=== PATIENT | male | born 1955 | race Caucasian/White ===

== ENCOUNTER 2017-09-06 12:46 | Emergency (ER) | payer BC ==
[~2017-09-06] VITALS: Ht 167.6 cm; Wt 86.1 kg
[~2017-09-06 12:46] MED LIST changes: -GADAVIST IV PRN; -LEVO150T9 PO; -TRMCR130WC TOP
[2017-09-06 12:50] VITALS: TEMP 36.3; Ht 167.6 cm; Wt 86.1 kg
[2017-09-06 13:12] LABS: BASO % 0.6 %; BASO ABS # 0.03 K/uL (0-0.2); EOS % 2.3 %; EOS ABS # 0.11 K/uL (0-0.5); HEMATOCRIT 45.7 % (42-52); HEMOGLOBIN 15.9 g/dL (14.0-18.0); IG# 0.02 K/uL (0.00-0.02); LYMPH % 16.4 %; LYMPH ABS # 0.79 K/uL (1.2-3.4); MEAN CELL VOLUME 88.1 fL (80-100); MEAN CORPUSCULAR HEMOGLOBIN 30.6 pg (25-34); MEAN CORPUSCULAR HGB CONC 34.8 g/dl (32-36); MEAN PLATELET VOLUME 9.6 fL (7.4-10.4); MONO % 10.6 %; MONO ABS # 0.51 K/uL (0.11-0.59); NEUT % 69.7 %; NEUT ABS # 3.37 K/uL (1.4-6.5); PLATELET COUNT 178 K/uL (130-400); RED CELL DISTRIBUTION WIDTH CV 13.4 % (11.5-14.5); RED CELL DISTRIBUTION WIDTH SD 43.4 fL (36.4-46.3); WHITE BLOOD COUNT 4.83 K/uL (4.8-10.8)
[2017-09-06 13:18] LABS: PTT PATIENT 27.1 SECONDS (21.0-31.0)
--- NOTE | 2017-09-06 13:24 | EMERGENCY ROOM VISIT NOTE ---
History Report prepared by Manfred: Lars Villanueva Under the Supervision of: Dr. Trenton Joseph D.O. First contact with patient: 12:55 Chief Complaint: HEADACHE Stated Complaint: SENT FROM MRI History of Present Illness The patient is a 61 year old male who presents to the Emergency Room with complaints of a constant left sided headache that began 2 weeks ago. He rates his discomfort as a 3/10 in severity. Per nursing, the patient has been forgetful and has been dizzy and "wobbling" in the last two weeks. The patient states that he went to his physician where he had an outpatient MRI. HE reports that he was told the MRI was abnormal, but was not told any details. He was sent to the ED via his physician. He denies blood thinners, recent falling or trauma, alcohol, drug, tobacco use, and recent travel. He reports a history of thyroid problems and colitis. Source of History: patient Onset: two weeks ago Position: head (left side) Symptom Intensity: 3/10 Timing: constant Note: Associated symptoms include: dizziness and forgetfulness Review of Systems See HPI for pertinent positives & negatives. A total of 10 systems reviewed and were otherwise negative. Past Medical & Surgical Medical Problems: (1) Colitis (2) Thyroid condition Family History Cancer Diabetes mellitus Kidney disease Kidney stones Social History Smoking Status: Never Smoker Smokeless Tobacco Use: No Alcohol Use: none Drug Use: none Marital Status: Housing Status: lives with family Current/Historical Medications Scheduled Levothyroxine Sodium (Levothyroxine Sodium), 150 MCG PO QAM Mesalamine (Lialda), 2 TABS PO DAILY Triamcinolone Acet (Aristocort 0.1%), 1 APPLN TOP BID Allergies Coded Allergies: No Known Allergies (Unverified , 09/06/17) Physical Exam Vital Signs Date Time Temp Pulse Resp B/P (MAP) Pulse Ox O2 Delivery O2 Flow Rate FiO2 09/06/17 17:39 62 18 119/63 96 Room Air 09/06/17 16:29 68 18 125/81 97 Room Air 09/06/17 15:20 57 16 112/82 95 Room Air 09/06/17 14:36 58 17 119/83 95 Room Air 09/06/17 13:51 61 22 126/82 98 Room Air 09/06/17 12:58 62 2/8/18 12:50 36.3 64 18 144/85 98 Room Air Physical Exam GENERAL: Patient is awake, alert, and in no acute distress. Patient is resting comfortably and is mildly anxious. EYES: The conjunctivae are clear. The pupils are round and reactive. EARS, NOSE, MOUTH AND THROAT: The nose is without any evidence of any deformity. Mucous membranes are moist tongue is midline NECK: The neck is nontender and supple. RESPIRATORY: Normal respiratory effort is noted there is no evidence of wheezing rhonchi or rales CARDIOVASCULAR: Regular rate and rhythm noted there no murmurs rubs or gallops normal S1 normal S2 GASTROINTESTINAL: The abdomen is soft. Bowel sounds are present in all quadrants. Abdomen is nontender MUSCULOSKELETAL/EXTREMITIES: There is no evidence of gross deformity full range of motion is noted in the hips and shoulders SKIN: There is no obvious evidence of any rash. There are no petechiae, pallor or cyanosis noted. NEUROLOGIC: Patient is awake alert and oriented x3 strength is symmetric patellar reflexes are 2+ bilaterally Medical Decision & Procedures ER Provider Diagnostic Interpretation: X-ray results as stated below per interpretation by me and the radiologist. CHEST ONE VIEW PORTABLE CLINICAL HISTORY: ABDOMINAL PAIN/GI pain. Nausea. COMPARISON STUDY: 07/25/2014 FINDINGS: The bones soft tissues and hemidiaphragms are normal. The cardiomediastinal silhouette is normal. The lungs are clear. The pulmonary vasculature is normal. IMPRESSION: Negative chest. The above report was generated using voice recognition software. It may contain grammatical, syntax or spelling errors. Electronically signed by: Jules Tompkins M.D. 09/06/2017 1:34 PM Dictated Date/Time: 09/06/2017 1:33 PM Laboratory Results 09/06/17 13:00 Red Blood Count 5.19, Mean Corpuscular Volume 88.1, Mean Corpuscular Hemoglobin 30.6, Mean Corpuscular Hemoglobin Concent 34.8, Mean Platelet Volume 9.6, Neutrophils (%) (Auto) 69.7, Lymphocytes (%) (Auto) 16.4, Monocytes (%) (Auto) 10.6, Eosinophils (%) (Auto) 2.3, Basophils (%) (Auto) 0.6, Neutrophils # (Auto ) 3.37, Lymphocytes # (Auto) 0.79, Monocytes # (Auto) 0.51, Eosinophils # (Auto ) 0.11, Basophils # (Auto) 0.03 09/06/17 13:00 Test 09/06/17 13:00 White Blood Count 4.83 K/uL (4.8-10.8) Red Blood Count 5.19 M/uL (4.7-6.1) Hemoglobin 15.9 g/dL (14.0-18.0) Hematocrit 45.7 % (42-52) Mean Corpuscular Volume 88.1 fL (80-100) Mean Corpuscular Hemoglobin 30.6 pg (25-34) Mean Corpuscular Hemoglobin Concent 34.8 g/dl (32-36) Platelet Count 178 K/uL (130-400) Mean Platelet Volume 9.6 fL (7.4-10.4) Neutrophils (%) (Auto) 69.7 % Lymphocytes (%) (Auto) 16.4 % Monocytes (%) (Auto) 10.6 % Eosinophils (%) (Auto) 2.3 % Basophils (%) (Auto) 0.6 % Neutrophils # (Auto) 3.37 K/uL (1.4-6.5) Lymphocytes # (Auto) 0.79 K/uL (1.2-3.4) Monocytes # (Auto) 0.51 K/uL (0.11-0.59) Eosinophils # (Auto) 0.11 K/uL (0-0.5) Basophils # (Auto) 0.03 K/uL (0-0.2) RDW Standard Deviation 43.4 fL (36.4-46.3) RDW Coefficient of Variation 13.4 % (11.5-14.5) Immature Granulocyte % (Auto) 0.4 % Immature Granulocyte # (Auto) 0.02 K/uL (0.00-0.02) Prothrombin Time 10.3 SECONDS (9.0-12.0) Prothromb Time International Ratio 1.0 (0.9-1.1) Activated Partial Thromboplast Time 27.1 SECONDS (21.0-31.0) Partial Thromboplastin Ratio 1.0 Anion Gap 5.0 mmol/L (3-11) Est Creatinine Clear Calc Drug Dose 78.4 ml/min Estimated GFR () 91.1 Estimated GFR (Non- 78.6 BUN/Creatinine Ratio 12.8 (10-20) Calcium Level 9.4 mg/dl (8.5-10.1) Total Bilirubin 0.4 mg/dl (0.2-1) Direct Bilirubin 0.1 mg/dl (0-0.2) Aspartate Amino Transf (AST/SGOT) 20 U/L (15-37) Alanine Aminotransferase (ALT/SGPT) 32 U/L (12-78) Alkaline Phosphatase 111 U/L (45-117) Troponin I < 0.015 ng/ml (0-0.045) Total Protein 8.2 gm/dl (6.4-8.2) Albumin 3.4 gm/dl (3.4-5.0) Lipase 111 U/L (73-393) Laboratory results per my review. ECG Indication: altered mental status Rate (beats per minute): 60 Rhythm: normal sinus Findings: no ectopy, other (No actue ST segments) Comparison ECG Date: no prior available Change: Patient's EKG was interpreted by me. ED Course 1259: The patient was evaluated in room B12B. A complete history and physical examination were performed. 1308: I discussed the patient's case with Dr. Parikh, [facility]. He understands the patient's case and agrees to accept the patient for further management and/or disposition. 1312: I reevaluated the patient and updated him on his treatment plan. He understands the plan and agrees. The patient is ready for transfer. 1720: The patient is being transferred. Medical Decision Differential diagnosis: Etiologies such as migraine headache, meningitis, sinusitis, CO exposure, ICH, SAH, infection, tumor, headache, sinus thrombosis, arterial dissection, as well as others were entertained. Nursing notes reviewed. Patient's recent MRI report was reviewed. The patient is a 61-year-old male who presented to the emergency department for an evaluation of headache. The patient has had a headache for the last 2 weeks. He states that he was seen by his primary care physician and an MRI was scheduled for today. The patient presents to the emergency department today because MRI revealed signs of subdural hematoma. I discussed the patient's laboratory and radiographic studies with him. I also discussed his case with the neurosurgeon at [facility]. They have agreed to accept the patient in transfer. At this time the patient's blood pressure and vital signs appear stable. His mentation is appropriate. I do not feel that he requires air transport at this time. Medication Reconcilliation Current Medication List: was personally reviewed by me Blood Pressure Screening Patient's blood pressure: Elevated blood pressure Blood pressure disposition: Elevated BP felt to be situational Consults Time Called: 1308 Consulting Physician: [facility] Returned Call: 1308 I discussed the patient's case with [facility]. He understands the patient's case and agrees to accept the patient for further management and/or disposition. Impression Primary Impression: Acute subdural hematoma Additional Impression: Headache Scribe Attestation The scribe's documentation has been prepared under my direction and personally reviewed by me in its entirety. I confirm that the note above accurately reflects all work, treatment, procedures, and medical decision making performed by me. Departure Information Dispostion Transfer Acute Care Facility Referrals Kim Duenas M.D. (PCP) Patient Instructions [facility] Problem Qualifiers Additional Impression: Headache Headache type: unspecified Headache chronicity pattern: unspecified pattern Intractability: not intractable Qualified Codes: R51 - Headache
[2017-09-06 13:28] LABS: ALBUMIN 3.4 gm/dl (3.4-5.0); ALT/SGPT 32 U/L (12-78); AST/SGOT 20 U/L (15-37); BLOOD UREA NITROGEN 13 mg/dl (7-18); CALCIUM 9.4 mg/dl (8.5-10.1); CARBON DIOXIDE 30 mmol/L (21-32); CREATININE 1.03 mg/dl (0.60-1.40); GLUCOSE 97 mg/dl (70-99); LIPASE 111 U/L (73-393); POTASSIUM 3.9 mmol/L (3.5-5.1); SODIUM 136 mmol/L (136-145)
[2017-09-06 13:33] LABS: ALKALINE PHOSPHATASE 111 U/L (45-117); TOTAL PROTEIN 8.2 gm/dl (6.4-8.2)
--- NOTE | 2017-09-06 13:35 | DIAGNOSTIC IMAGING REPORT ---
CHEST ONE VIEW PORTABLE CLINICAL HISTORY: ABDOMINAL PAIN/GI pain. Nausea. COMPARISON STUDY: 07/25/2014 FINDINGS: The bones soft tissues and hemidiaphragms are normal. The cardiomediastinal silhouette is normal. The lungs are clear. The pulmonary vasculature is normal. IMPRESSION: Negative chest. The above report was generated using voice recognition software. It may contain grammatical, syntax or spelling errors. Electronically signed by: Jules Tompkins M.D. 09/06/2017 1:34 PM Dictated Date/Time: 09/06/2017 1:33 PM
[2017-09-06] MEDS ORDERED: LEVO150T9 PO (14:15)
[2017-09-06] MEDS ORDERED: TRMCR130WC TOP (14:15)
[2017-09-06 17:39] VITALS: BP 119/63; PULSE 62; O2SAT 96
== END 2017-09-06 17:41 | disposition short-term general hospital (02) ==
LOC: C.EDB 12:47
DX: I62.01 Nontraumatic acute subdural hemorrhage (principal); E07.9 Disorder of thyroid, unspecified; Z79.899 Other long term (current) drug therapy; Z80.9 Family history of malignant neoplasm, unspecified; Z83.3 Family history of diabetes mellitus; Z84.1 Family history of disorders of kidney and ureter

== ENCOUNTER → 2017-09-06 | Outpatient (CLI) | payer BC ==
[~2017-09-06] MED LIST: DEXT-10 PO; GADAVIST IV PRN; LEVO150T9 PO; MESA1.2T PO; PSEUTAB98 PO; TRMCR130WC TOP
--- NOTE | 2017-09-06 12:49 | DIAGNOSTIC IMAGING REPORT ---
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 No history of trauma. COMPARISON: CT head 11/06/2010 TECHNIQUE: Multiplanar multisequence MRI of the brain was obtained both with and without the use of 8.5 mL Gadavist FINDINGS: There is an acute subdural hematoma measuring up to 2.4 cm transversely adjacent to the left cerebral convexity causing sulcal effacement and mass effect upon the left frontal hemisphere, notably the left frontal and parietal lobes with resultant subfalcine herniation with 1.2 cm rightward midline shift. Mild deformity is also noted involving the mid brain. Small acute appearing subdural hematomas also seen layering along the right cerebral convexity adjacent to the right parietal lobe measuring up to 4 mm with minimal adjacent sulcal effacement. Mild layering hemosiderin is noted within the bilateral subdural hematomas, left greater than right. There is pachymeningeal enhancement of the bilateral cerebral hemispheres adjacent to the subdural hematomas. No hydrocephalus. Suprasellar and quadrigeminal plate cisterns are maintained. No cerebellar tonsillar herniation. No acute infarction identified. No intracranial mass seen. No abnormal intra-axial enhancement. Major flow voids at the level of the skull base appear patent. Trace mastoid effusions. Mild ethmoid sinus disease. Orbits and soft tissues are unremarkable. IMPRESSION: 1. Moderate to large left subdural hematoma measuring up to 2.4 cm causes significant sulcal effacement and mass effect upon the left cerebral hemisphere resulting in subfalcine herniation with 1.2 cm rightward midline shift. 2. Small acute right subdural hematoma adjacent to the right parietal lobe measures up to 4 mm. 3. No hydrocephalus or intra-axial hemorrhage. 4. Pachymeningeal enhancement of the bilateral cerebral hemispheres, likely secondary to dural venous congestion from the aforementioned subdural hematomas. Without history of trauma, spontaneous intracranial hypotension is an additional differential consideration. These findings were discussed with referring physician Kim Duenas at 12:43 PM on 09/06/2017. The patient was immediately sent to the emergency room for further treatment. The above report was generated using voice recognition software. It may contain grammatical, syntax or spelling errors. Electronically signed by: Kedar Maldonado M.D. 09/06/2017 12:48 PM Dictated Date/Time: 09/06/2017 12:31 PM
== END | disposition home or self-care (01) ==
LOC: C.MRI 11:39
PROVIDERS: ATTEND Family Medicine
DX: G44.029 Chronic cluster headache, not intractable (principal); I62.00 Nontraumatic subdural hemorrhage, unspecified; G93.5 Compression of brain; G96.19 Other disorders of meninges, not elsewhere classified

== ENCOUNTER 2023-05-31 01:15 | Inpatient (IN) ==
--- NOTE | 2023-05-31 01:26 | Emergency Department Note ---
Impression & Plan Fever, COVID-19, Emesis, persistent, Hypomagnesemia, Acute confusion ED Provider Note HISTORY OF PRESENT ILLNESS: Patient is a 67-year-old male presenting with vomiting and confusion. Daughter provides history, as patient is very confused. She reports that the patient lives with her brother who is recently been sick with of vomiting and diarrheal illness. The patient started vomiting yesterday and has had continued vomiting throughout the day. She states that he has been complaining of generalized abdominal pain and is currently confused. Patient denies any chest pain or shortness of breath. He reports "it does hurt in my stomach" but is unable to locate where. He denies any history of abdominal surgeries. Denies any dysuria or hematuria. Daughter reports the patient developed a fever yesterday and has been febrile for the last 24 hours. His last dose of Tylenol or Motrin was over 14 hours ago ROS: as above PHYSICAL EXAM: Constitutional: Patient appears in no acute distress. HENT: Head: Normocephalic and atraumatic. Eyes: EOMI, PERRL Mouth/Throat: Mucous membranes moist. Neck: Trachea midline. Neck supple. Cardiovascular: Tachycardic with regular rhythm. No murmurs, rubs or gallops. Intact distal pulses. Pulmonary/Chest: No respiratory distress. Breath sounds clear and equal bilaterally. No wheezes or rales. Abdominal: Abdomen soft, no rebound or guarding. Generalized TTP Musculoskeletal: No edema, tenderness or deformity noted. Skin: Warm and dry. No rash, erythema, pallor or cyanosis Psychiatric: Appropriate mood and affect for situation. Neurological: Alert and answering questions. CN II-XII grossly intact, moving all extremities equally and fully. MDM: - Vitals signs showed tachycardia and fever. - History obtained via patient and patient's daughter. Patient presents with vomiting and confusion. Daughter states that the patient became very confused today. He has been running a fever since yesterday and had multiple episodes of vomiting. Patient lives with his son who also has similar symptoms. Describes generalized abdominal pain. Denies any history of abdominal surgeries. Denies any dysuria or hematuria. - Chronic conditions affecting care: Colitis - Differential diagnoses include, but are not limited to: Cholecystitis; colitis; diverticulitis; appendicitis; viral syndrome; dehydration; electrolyte abnormality - Order placed for continuous cardiac monitoring. At this time, monitor showed rate of 84 bpm with normal sinus rhythm, per my interpretation. - External medical records reviewed. - EKG reviewed by myself showed normal sinus rhythm. Rate 78 bpm. QTc 383. No acute ischemic changes - Laboratory workup interpreted by myself showed normal WBC; normal INR; slight hyponatremia (Na 133); normal creatinine; slight hypomagnesemia (Mg 1.6); normal troponin; normal liver function; normal procalcitonin - VBG grossly unremarkable - CXR negative for pneumonia, per my interpretation - Biofire positive for COVID-19 infection - Patient given 1L NS and 4 mg IV zofran in ER. Given 1g IV tylenol for fever. - On reassessment, patient still vomiting and confused. - Discussion was had with social science analyst about patient's case and need for admission - Hospitalist consulted for admission - [facility] ASSESSMENT AND PLAN: Diagnosis: persistent vomiting; COVID-19 infection; hypomagnesemia; fever; confusion Plan: admit Past Med/Surg History Medical History (Updated 05/31/23 @ 05:40 by Anjali Betancourt MD) Thyroid condition Colitis Sinusitis Family History Other No pertinent family history in first degree relatives Social History Smoking Status: Never smoker Preferred Language: Luxembourgish Feels Safe at Home: Yes Allergies Allergies Allergy/AdvReac Type Severity Reaction Status Date / Time No Known Allergies Allergy Unverified 03/26/19 14:19 Home Meds Home Medications Medication Instructions Recorded Confirmed mesalamine 1.2 gram tablet,delayed 2.4 g PO BIDM ##0 07/25/14 05/31/23 release (Lialda) betamethasone, augmented 0.05 % 1 applic topical BID PRN flares 05/31/23 05/31/23 topical ointment levothyroxine 112 mcg tablet 112 mcg PO DAILYBB 05/31/23 05/31/23 Results & Data (ED) Vital Signs Vital Signs - 24 hr 05/31/23 01:19 05/31/23 01:40 05/31/23 01:40 Temperature 38.7 C H Temperature Source Temporal Artery Scan Pulse Rate 93 H Pulse Rate [Apical] 75 Respiratory Rate 18 21 Respiratory Depth Normal Blood Pressure 112/75 Blood Pressure [Right Arm] 117/73 Blood Pressure Mean 87 Blood Pressure Mean [Right Arm] 87 Pulse Oximetry 96 98 Oxygen Delivery Method Room Air Room Air Sepsis New/Unexplained Change in Mental Status N/A Sepsis Action Taken by Nursing No Action Required 05/31/23 01:57 05/31/23 04:53 Temperature Temperature Source Pulse Rate 82 Pulse Rate [Apical] 80 Respiratory Rate 19 Respiratory Depth Blood Pressure Blood Pressure [Right Arm] 109/83 Blood Pressure Mean Blood Pressure Mean [Right Arm] 91 Pulse Oximetry 95 Oxygen Delivery Method Sepsis New/Unexplained Change in Mental Status Sepsis Action Taken by Nursing Laboratory Data 05/31/23 01:30 05/31/23 01:30 Lab Results 05/31/23 05/31/23 Range/Units 01:30 01:42 WBC 7.58 (4.8-10.8) K/ul RBC 5.36 (4.70-6.10) M/uL Hgb 15.8 (14.0-18.0) g/dl Hct 45.6 (42.0-52.0) % MCV 85.1 (80.0-100.0) fL MCH 29.5 (25.0-34.0) pg MCHC 34.6 (32.0-36.0) g/dL RDW Std Deviation 40.2 (36.4-46.3) fL RDW Coeff of [place] 13.1 (11.5-14.5) % Plt Count 187 (130-400) K/uL MPV 9.9 (9.4-12.4) fL Immature Gran % (Auto) 0.1 % Neut % (Auto) 81.1 % Lymph % (Auto) 6.5 % [place] % (Auto) 11.2 % Eos % (Auto) 0.3 % Baso % (Auto) 0.8 % Neut # (Auto) 6.15 (1.40-6.50) K/uL Lymph # (Auto) 0.49 L (1.20-3.40) K/uL [place] # (Auto) 0.85 H (0.11-0.59) K/uL Eos # (Auto) 0.02 (0.00-0.50) K/uL Baso # (Auto) 0.06 (0.00-0.20) K/uL Immature Gran # (Auto) 0.01 (0.01-0.20) K/uL PT 11.4 (9.0-12.0) Seconds INR 1.0 (0.9-1.1) VBG pH 7.56 H (7.36-7.41) VBG pCO2 31 L (38-50) mmHg VBG pO2 39 mmHg VBG HCO3 28 mmol/L VBG O2 Saturation 75.8 % VBG Base Excess 5.9 mEq/L Sodium 133 L (136-145) mmol/L Potassium 4.2 (3.5-5.1) mmol/L Chloride 100 (98-107) mmol/L Carbon Dioxide 23 (21-32) mmol/L Anion Gap 10 (3-11) BUN 11 (6-23) mg/dl Creatinine 1.07 (0.6-1.4) mg/dl Est Cr Clr Drug Dosing 67.0 ml/min Est GFR ( Amer) 83.4 ml/min Est GFR (Non-Af Amer) 72.0 ml/min BUN/Creatinine Ratio 10.3 (10-20) Glucose 115 H (70-99(Fasting)) mg/dl Lactate 1.5 (0.4-2.0) mmol/L Calcium 9.9 (8.6-10.3) mg/dl Magnesium 1.6 L (1.7-2.4) mg/dl Total Bilirubin 0.9 (0.2-1.0) mg/dl Direct Bilirubin 0.1 (0-0.2) mg/dl AST 24 (13-39) U/L ALT 21 (7-52) U/L Alkaline Phosphatase 124 H (34-104) U/L Troponin I High Sens 4.0 (0-20) pg/ml Total Protein 8.6 H (6.0-8.3) gm/dl Albumin 4.5 (3.4-5.0) gm/dl Procalcitonin 0.29 (0-0.5) ng/ml Adenovirus (PCR) Not Detected (NotDetected) B. pertussis DNA (PCR) Not Detected (NotDetected) B.parapertussis DNA PCR Not Detected (NotDetected) C. pneumoniae DNA (PCR) Not Detected (NotDetected) Coronavirus OC43 (PCR) Not Detected (NotDetected) Coronavirus HKU1 (PCR) Not Detected (NotDetected) Coronavirus 229E (PCR) Not Detected (NotDetected) SARS-CoV-2 (PCR) DETECTED A* (NotDetected) Coronavirus NL63 (PCR) Not Detected (NotDetected) Human Metapneumovir PCR Not Detected (NotDetected) Influenza Type A (PCR) Not Detected (NotDetected) Influenza Type B (PCR) Not Detected (NotDetected) M. pneumoniae (PCR) Not Detected (NotDetected) Parainfluenza 1 (PCR) Not Detected (NotDetected) Parainfluenza 2 (PCR) Not Detected (NotDetected) Parainfluenza 3 (PCR) Not Detected (NotDetected) Parainfluenza 4 (PCR) Not Detected (NotDetected) RSV (PCR) Not Detected (NotDetected) Entero/Rhino (PCR) Not Detected (NotDetected) Administered Medications Discontinued Medications Acetaminophen (Acetaminophen 1000 Mg/100 Ml Iv) Confirm Administered Dose 1,000 mg IV .STK-MED ONE Stop: 05/31/23 04:49 Last Admin: 05/31/23 04:52 Dose: Not Given Documented By: RISA Sodium Chloride (Nss) 1,000 mls @ 999 mls/hr IV .Q1H1M ARLET Stop: 05/31/23 03:30 Last Infusion: 05/31/23 04:00 Dose: Infused Documented By: Admin: 05/31/23 03:00 Dose: 999 mls/hr Documented By: Infusion: 05/31/23 02:33 Dose: Infused Documented By: Admin: 05/31/23 01:32 Dose: 999 mls/hr Documented By: RISA Acetaminophen (Ofirmev) 1,000 mg in 100 mls @ 400 mls/hr IV NOW STA Stop: 05/31/23 02:07 Last Infusion: 05/31/23 05:07 Dose: Infused Documented By: Admin: 05/31/23 04:51 Dose: 400 mls/hr Documented By: RISA Ioversol (Optiray 320 100ml) 100 ml IV ONCE ONE Stop: 05/31/23 05:17 Last Admin: 05/31/23 05:16 Dose: 91 ml Documented By: GLENN Discharge Plan Visit Data Chief Complaint: Vomiting Stated Complaint: VOMITING,FEVER,CHILLS ED Provider: Anjali Betancourt Discharge Problem: Fever, COVID-19, Emesis, persistent, Hypomagnesemia, Acute confusion Forms Stand Alone Forms: [facility] Prescriptions Prescriptions: No Action mesalamine [Lialda] 1.2 gram Tablet,Delayed Release (Dr/Ec) 2.4 g PO BIDM Qty: 0 Rx Instructions: take 2 tablets with morning and evening meals levothyroxine 112 mcg tablet 112 mcg PO DAILYBB betamethasone, augmented 0.05 % ointment 1 applic TOPICAL BID PRN (Reason: flares) Referrals Referrals: Jules Coronado MD [Primary Care Provider] -
[2023-05-31] MEDS: SODIUM CHLORIDE 0.9% 1,000 ML IV SCH ×2 (01:32→03:00)
[2023-05-31 01:46] LABS: Base Excess VBG 5.9 mEq/L; HCO3 VBG 28 mmol/L; Oxygen Saturation VBG 75.8 %; PCO2 VBG 31 mmHg (38-50); PO2 VBG 39 mmHg; pH VBG 7.56 (7.36-7.41)
[2023-05-31] MEDS ORDERED: ACETAMINOPHEN 1,000 MG/100 ML VIAL IV STA (01:53)
[2023-05-31 04:31] LABS: Adenovirus PCR Not Detected (NotDetected); Bordetella parapertussis PCR Not Detected (NotDetected); Bordetella pertussis PCR Not Detected (NotDetected); Chlamydia pneumoniae PCR Not Detected (NotDetected); Coronavirus 229E PCR Not Detected (NotDetected); Coronavirus HKU1 PCR Not Detected (NotDetected); Coronavirus NL63 PCR Not Detected (NotDetected); Coronavirus OC43PCR Not Detected (NotDetected); Human Metapneumovirus PCR Not Detected (NotDetected); Influenza A PCR Not Detected (NotDetected); Influenza B PCR Not Detected (NotDetected); Mycoplasma pneumoniae PCR Not Detected (NotDetected); Parainfluenza Virus 1 PCR Not Detected (NotDetected); Parainfluenza Virus 2 PCR Not Detected (NotDetected); Parainfluenza Virus 3 PCR Not Detected (NotDetected); Parainfluenza Virus 4 PCR Not Detected (NotDetected); Respiratory Syncytial VirusPCR Not Detected (NotDetected); Rhinovirus/Enterovirus PCR Not Detected (NotDetected)
[2023-05-31 04:33] LABS: Basophils # (auto) 0.06 K/uL (0.00-0.20); Basophils % (auto) 0.8 %; Eosinophils # (auto) 0.02 K/uL (0.00-0.50); Eosinophils % (auto) 0.3 %; Hematocrit (blood only) 45.6 % (42.0-52.0); Hemoglobin 15.8 g/dl (14.0-18.0); Immature Granulocytes # (auto) 0.01 K/uL (0.01-0.20); Immature Granulocytes % (auto) 0.1 %; Lymphocytes # (auto) 0.49 K/uL (1.20-3.40); Lymphocytes % (auto) 6.5 %; Mean Corpuscular Hemoglobin 29.5 pg (25.0-34.0); Mean Corpuscular Hgb Conc 34.6 g/dL (32.0-36.0); Mean Corpuscular Volume 85.1 fL (80.0-100.0); Mean Platelet Volume 9.9 fL (9.4-12.4); Monocytes # (auto) 0.85 K/uL (0.11-0.59); Monocytes % (auto) 11.2 %; Neutrophils # (auto) 6.15 K/uL (1.40-6.50); Neutrophils % (auto) 81.1 %; Platelet Count 187 K/uL (130-400); RDW Coefficient of Variation 13.1 % (11.5-14.5); RDW Standard Deviation 40.2 fL (36.4-46.3); Red Blood Count 5.36 M/uL (4.70-6.10); White Blood Count 7.58 K/ul (4.8-10.8)
[2023-05-31 04:35] LABS: Albumin Level 4.5 gm/dl (3.4-5.0); BUN Creatinine Ratio 10.3 (10-20); Bilirubin Direct 0.1 mg/dl (0-0.2); Bilirubin,Total 0.9 mg/dl (0.2-1.0); Calcium 9.9 mg/dl (8.6-10.3); Est GFR (African American) 83.4 ml/min; Magnesium 1.6 mg/dl (1.7-2.4); Potassium 4.2 mmol/L (3.5-5.1); Total Protein 8.6 gm/dl (6.0-8.3)
[2023-05-31 04:43] LABS: Coronavirus CoV-2 (COVID19)PCR DETECTED (NotDetected)
[2023-05-31] MEDS ORDERED: ACETAMINOPHEN 1000 MG/100 ML IV IV ONE (04:48)
[2023-05-31 04:52] LABS: Prothrombin Time 11.4 Seconds (9.0-12.0)
[2023-05-31] MEDS ORDERED: OPTIRAY 320 100ml IV ONE (05:16)
[2023-05-31] MEDS ORDERED: ONDANSETRON INJ 2 MG/ML 2 ML VIAL ONE (05:27)
[2023-05-31] MEDS ORDERED: ONDANSETRON INJ 2 MG/ML 2 ML VIAL IV STA (05:35)
[2023-05-31 05:39] LABS: Appearance Urine Clear (Clear); Bilirubin Urine Negative (Negative); Blood Urine Negative (Negative); Color Urine Yellow; Glucose Urine UA Negative (Negative); Ketones Urine Negative (Negative); Leukocyte Esterase Urine Negative (Negative); Nitrite Urine Negative (Negative); Protein Urine Negative (Negative); Specific Gravity Urine 1.043 (1.000-1.030); Urobilinogen Urine Negative (Negative); pH Urine 7.5 (4.5-7.5)
[2023-05-31] MEDS ORDERED: MAGNESIUM SULFATE / D5W 1 GM/100 ML BAG IV ONE (05:45)
[2023-05-31] MEDS ORDERED: SODIUM CHLORIDE 0.9% 1,000 ML IV ONE (05:45)
[2023-05-31] MEDS ORDERED: DEXAMETHASONE SOD INJ 4 MG/ML VIAL IV STA (06:17)
[2023-05-31] MEDS ORDERED: DOXYCYCLINE HYCLATE 100 MG in DEXTROSE 5% MINI-B 100 ML IV STA (06:18)
--- NOTE | 2023-05-31 06:18 | History & Physical Report ---
Date of Service May 31, 2023 Assessment & Plan (1) Acute hypoxemic respiratory failure: Plan: Secondary to severe COVID-19 pneumonia Severe sepsis SIRS plus hypoxemia secondary to complicated bronchitis hypothyroidism, outpatient TSH from last month noted to be low ulcerative colitis, stable on regimen history of subdural hematoma status post surgery Hyperglycemia rule out DM Medical telemetry Supplemental O2 Baseline ABG Decadron and Remdesivir indicated for severe COVID-19 pneumonia CS, doxycycline for complicated bronchitis Recheck TSH DVT prophylaxis. Lovenox subcu Full code Total critical care time was 45 minutes. Text document was generated using [employer] voice recognition software. It may contain grammatical or spelling errors. Kindly contact undersigned for clarification of any documentation item in question. History of Present Illness Chief Complaint: Vomiting and confusion as per records Primary Care Provider: Jules Coronado MD History obtained from patient and records. Medical history significant for hyperlipidemia, hypothyroidism, ulcerative colitis, history of subdural hematoma status post surgery. Few days history of cough symptoms productive of junky yellow sputum. Denies aspiration. Positive COVID-19 contacts. Patient completed COVID-19 vaccination. Chest pain, headache, and shortness of breath from coughing. Poor appetite. Fever, achy abdominal pain with bilious emesis. Some confusion noted by family. Patient brought to ER for evaluation. Lowest O2 sats of 80s noted at the ER. Medical History as above Surgical History : Craniotomy for subdural hematoma evacuation/sylvester holding, vasectomy Family History : Pancreatic cancer, leukemia, alcoholism, DM Personal/Social history : Non-smoker, no EtOH intake, retired [employer] employee Allergies Allergy/AdvReac Type Severity Reaction Status Date / Time No Known Allergies Allergy Unverified 03/26/19 14:19 Home Medications Medication Instructions Recorded Confirmed Type mesalamine 1.2 gram tablet,delayed 2.4 g PO BIDM ##0 07/25/14 05/31/23 History release (Lialda) betamethasone, augmented 0.05 % 1 applic topical BID PRN flares 05/31/23 05/31/23 History topical ointment levothyroxine 112 mcg tablet 112 mcg PO DAILYBB 05/31/23 05/31/23 History Past Med/Surg History Medical History (Updated 05/31/23 @ 08:15 by Urbano Lua MD) Thyroid condition Colitis Sinusitis Family History Other No pertinent family history in first degree relatives Social History Smoking Status: Never smoker Preferred Language: Mauritanian Feels Safe at Home: Yes Review of Systems Review of Systems: As per HPI, all other systems reviewed and negative Physical Exam Physical Exam: GENERAL: Slightly uncomfortable, pleasant, no respiratory distress SKIN: Normal color, warm HEENT: Alopecia, pink palpebral conjunctivae, no ptosis, dry buccal mucosa, nasal cannula in place NECK : Supple, no tenderness CHEST : Decreased breath sounds, no tenderness HEART : RRR, no obvious murmurs ABDOMEN: Some distention, nontender EXTREMITIES : No LE swelling/tenderness, no other conspicuous deformities noted NEUROLOGIC : Coherent, no facial asymmetry, no other gross focality Results & Data Results & Data Vital Signs (Past 12 Hours) Vital Signs Temp Pulse Pulse Resp BP BP Pulse Ox 05/31/23 06:00 78 05/31/23 05:57 88 L 05/31/23 04:53 80 19 109/83 95 05/31/23 01:57 82 05/31/23 01:40 75 21 117/73 98 05/31/23 01:40 05/31/23 01:19 38.7 C H 93 H 18 112/75 96 O2 Del Method O2 Flow Rate 05/31/23 06:00 05/31/23 05:57 Nasal Cannula 0 05/31/23 04:53 05/31/23 01:57 05/31/23 01:40 05/31/23 01:40 Room Air 05/31/23 01:19 Room Air Laboratory Results Laboratory Results WBC 7.58 K/ul (4.8-10.8) 05/31/23 01:30 RBC 5.36 M/uL (4.70-6.10) 05/31/23 01:30 Hgb 15.8 g/dl (14.0-18.0) 05/31/23 01:30 Hct 45.6 % (42.0-52.0) 05/31/23 01:30 MCV 85.1 fL (80.0-100.0) 05/31/23 01:30 MCH 29.5 pg (25.0-34.0) 05/31/23 01:30 MCHC 34.6 g/dL (32.0-36.0) 05/31/23 01:30 RDW Std Deviation 40.2 fL (36.4-46.3) 05/31/23 01:30 RDW Coeff of [place] 13.1 % (11.5-14.5) 05/31/23 01:30 Plt Count 187 K/uL (130-400) 05/31/23 01:30 MPV 9.9 fL (9.4-12.4) 05/31/23 01:30 Immature Gran % (Auto) 0.1 % 05/31/23 01:30 Neut % (Auto) 81.1 % 05/31/23 01:30 Lymph % (Auto) 6.5 % 05/31/23 01:30 [place] % (Auto) 11.2 % 05/31/23 01:30 Eos % (Auto) 0.3 % 05/31/23 01:30 Baso % (Auto) 0.8 % 05/31/23 01:30 Neut # (Auto) 6.15 K/uL (1.40-6.50) 05/31/23 01:30 Lymph # (Auto) 0.49 K/uL (1.20-3.40) L 05/31/23 01:30 [place] # (Auto) 0.85 K/uL (0.11-0.59) H 05/31/23 01:30 Eos # (Auto) 0.02 K/uL (0.00-0.50) 05/31/23 01:30 Baso # (Auto) 0.06 K/uL (0.00-0.20) 05/31/23 01:30 Immature Gran # (Auto) 0.01 K/uL (0.01-0.20) 05/31/23 01:30 PT 11.4 Seconds (9.0-12.0) 05/31/23 01:30 INR 1.0 (0.9-1.1) 05/31/23 01:30 VBG pH 7.56 (7.36-7.41) H 05/31/23 01:42 VBG pCO2 31 mmHg (38-50) L 05/31/23 01:42 VBG pO2 39 mmHg 05/31/23 01:42 VBG HCO3 28 mmol/L 05/31/23 01:42 VBG O2 Saturation 75.8 % 05/31/23 01:42 VBG Base Excess 5.9 mEq/L 05/31/23 01:42 Sodium 133 mmol/L (136-145) L 05/31/23 01:30 Potassium 4.2 mmol/L (3.5-5.1) 05/31/23 01:30 Chloride 100 mmol/L (98-107) 05/31/23 01:30 Carbon Dioxide 23 mmol/L (21-32) 05/31/23 01:30 Anion Gap 10 (3-11) 05/31/23 01:30 BUN 11 mg/dl (6-23) 05/31/23 01:30 Creatinine 1.07 mg/dl (0.6-1.4) 05/31/23 01:30 Est Cr Clr Drug Dosing 67.0 ml/min 05/31/23 01:30 Est GFR ( Amer) 83.4 ml/min 05/31/23 01:30 Est GFR (Non-Af Amer) 72.0 ml/min 05/31/23 01:30 BUN/Creatinine Ratio 10.3 (10-20) 05/31/23 01:30 Glucose 115 mg/dl (70-99(Fasting)) H 05/31/23 01:30 Lactate 1.5 mmol/L (0.4-2.0) 05/31/23 01:30 Calcium 9.9 mg/dl (8.6-10.3) 05/31/23 01:30 Magnesium 1.6 mg/dl (1.7-2.4) L 05/31/23 01:30 Total Bilirubin 0.9 mg/dl (0.2-1.0) 05/31/23 01:30 Direct Bilirubin 0.1 mg/dl (0-0.2) 05/31/23 01:30 AST 24 U/L (13-39) 05/31/23 01:30 ALT 21 U/L (7-52) 05/31/23 01:30 Alkaline Phosphatase 124 U/L (34-104) H 05/31/23 01:30 Troponin I High Sens 4.0 pg/ml (0-20) 05/31/23 01:30 Total Protein 8.6 gm/dl (6.0-8.3) H 05/31/23 01:30 Albumin 4.5 gm/dl (3.4-5.0) 05/31/23 01:30 Procalcitonin 0.29 ng/ml (0-0.5) 05/31/23 01:30 Urine Color Yellow 05/31/23 05:17 Urine Appearance Clear (Clear) 05/31/23 05:17 Urine pH 7.5 (4.5-7.5) 05/31/23 05:17 Ur Specific [place] 1.043 (1.000-1.030) H 05/31/23 05:17 Urine Protein Negative (Negative) 05/31/23 05:17 Urine Glucose (UA) Negative (Negative) 05/31/23 05:17 Urine Ketones Negative (Negative) 05/31/23 05:17 Urine Blood Negative (Negative) 05/31/23 05:17 Urine Nitrite Negative (Negative) 05/31/23 05:17 Urine Bilirubin Negative (Negative) 05/31/23 05:17 Urine Urobilinogen Negative (Negative) 05/31/23 05:17 Ur Leukocyte Esterase Negative (Negative) 05/31/23 05:17 Adenovirus (PCR) Not Detected (NotDetected) 05/31/23 01:30 B. pertussis DNA (PCR) Not Detected (NotDetected) 05/31/23 01:30 B.parapertussis DNA PCR Not Detected (NotDetected) 05/31/23 01:30 C. pneumoniae DNA (PCR) Not Detected (NotDetected) 05/31/23 01:30 Coronavirus OC43 (PCR) Not Detected (NotDetected) 05/31/23 01:30 Coronavirus HKU1 (PCR) Not Detected (NotDetected) 05/31/23 01:30 Coronavirus 229E (PCR) Not Detected (NotDetected) 05/31/23 01:30 SARS-CoV-2 (PCR) DETECTED (NotDetected) A* 05/31/23 01:30 Coronavirus NL63 (PCR) Not Detected (NotDetected) 05/31/23 01:30 Human Metapneumovir PCR Not Detected (NotDetected) 05/31/23 01:30 Influenza Type A (PCR) Not Detected (NotDetected) 05/31/23 01:30 Influenza Type B (PCR) Not Detected (NotDetected) 05/31/23 01:30 M. pneumoniae (PCR) Not Detected (NotDetected) 05/31/23 01:30 Parainfluenza 1 (PCR) Not Detected (NotDetected) 05/31/23 01:30 Parainfluenza 2 (PCR) Not Detected (NotDetected) 05/31/23 01:30 Parainfluenza 3 (PCR) Not Detected (NotDetected) 05/31/23 01:30 Parainfluenza 4 (PCR) Not Detected (NotDetected) 05/31/23 01:30 RSV (PCR) Not Detected (NotDetected) 05/31/23 01:30 Entero/Rhino (PCR) Not Detected (NotDetected) 05/31/23 01:30 CT abdomen pelvis: No acute findings in the abdomen or pelvis. Cholelithiasiswithout CT evidence to suggest acute cholecystitis Fattyinfiltration of the liver. Bilateral renal cysts Diagnostic Findings Chest x-ray as per my interpretation no congestion EKG as per my interpretation : Rate 80, NSR, normal axis, no ischemia
[2023-05-31] MEDS ORDERED: ALBUTEROL HFA 8 GM INHALER INH ONE (06:22)
[2023-05-31] MEDS ORDERED: REMDESIVIR 200 MG in SODIUM CHLORIDE 0.9% 210 ML IV STA (06:22)
[2023-05-31] MEDS ORDERED: PROMETHAZINE HCL 6.25 MG in SODIUM CHLORIDE 0.9% 50 ML IV PRN (06:22)
[2023-05-31 06:30] LABS: Thyroid Stimulating Hormone 0.146 uIu/ml (0.300-4.500)
[2023-05-31 06:59] LABS: Base Excess ABG 0.1 mEq/L (-9-1.8); HCO3 ABG 25 mmol/L (19-24); Oxygen Saturation ABG 98.9 % (90-95); PCO2 ABG 39 mmHg (35-46); PO2 ABG 120 mmHg (80-95); pH ABG 7.41 (7.35-7.45)
[2023-05-31 07:04] LABS: Allen Test Pos (Pos)
[2023-05-31 07:05] LABS: T4 Free Thyroxine 1.02 ng/dl (0.61-1.60)
--- NOTE | 2023-05-31 07:21 | XRay Report ---
SINGLE VIEW CHEST CLINICAL HISTORY: Sepsis. FINDINGS: An AP, portable, upright chest radiograph is compared to study dated 03/26/2019. The cardiom ediastinal silhouette is unremarkable. The lungs and pleural spaces are clear. No pneumothorax is see n. The bony thorax is grossly intact. IMPRESSION: No active disease in the chest. ACT 112: Negative or not required by law. Electronically signed by: Trev Burk M.D. 05/31/2023 7:19 AM
--- NOTE | 2023-05-31 08:00 | CT Scan Report ---
EXAM: CT Abdomen and Pelvis With Intravenous Contrast CLINICAL HISTORY: pain at ruq, with vomiting TECHNIQUE: Axial computed tomographyimages of the abdomen and pelviswith intravenous contrast. CTDI is 18.72 mGyand DLP is 995.80 mGy-cm. Automated exposure control was utilized for the study. Adose lowering technique was utilized adhering to the principles of ALARA. CONTRAST: Patient received 92 ml [id number] of IVcontrast COMPARISON: 08/06/2010 FINDINGS: Lung bases:Unremarkable. No mass. No consolidation. ABDOMEN: Liver: Fattyinfiltration of liver. Gallbladder and bile ducts:Cholelithiasiswithout CT evidence to suggest acute cholecystitis. No ductal dilation. Pancreas:Unremarkable. No mass. No ductal dilation. Spleen:Unremarkable. No splenomegaly. Adrenals:Unremarkable. No mass. Kidneys and ureters: Simple 1.4 cmleft midpole renal cyst. No follow-up of this simple cyst is necessary. 1.9 cmright lower pole renal cyst. No hydronephrosis. Stomach and bowel:Unremarkable. No obstruction. No mucosal thickening. PELVIS: Appendix: The appendix is not clearlyseen on this examthere is no CT evidence to suggest acute appendicitis. Bladder:Unremarkable. No mass. Reproductive:Unremarkable as visualized. ABDOMEN and PELVIS: Intraperitoneal space:Unremarkable. No free air. No significant fluid collection. Bones/joints:No acute fracture. No dislocation. Soft tissues:Unremarkable. Vasculature:Unremarkable. No abdominal aortic aneurysm. Lymph nodes:Unremarkable. No enlarged lymph nodes. IMPRESSION: No acute findings in the abdomen or pelvis. Cholelithiasiswithout CT evidence to suggest acute cholecystitis Fattyinfiltration of the liver. Bilateral renal cysts Radiologist: Oral Harmon MD Electronically Signed: 05/31/23 05:17 Study ready at 03:39 and initial results transmitted at 05:17 MTDD
[2023-05-31 09:11] LABS: Estimated Average Glucose 120 mg/dl; Hemoglobin A1C 5.8 % (4.5-5.6)
[2023-05-31] MEDS ORDERED: LEVOTHYROXINE SODIUM 112 MCG TABLET PO SCH (09:51)
[2023-05-31] MEDS ORDERED: ALBUTEROL HFA 8 GM INHALER INH PRN (09:51)
[2023-05-31] MEDS ORDERED: ACETAMINOPHEN 325 MG TAB PO PRN (09:51)
[2023-05-31] MEDS: ENOXAPARIN INJ 40 MG/0.4 ML SYR SQ SCH (10:25)
--- NOTE | 2023-05-31 16:31 | Electrocardiogram Report ---
Test Reason : Blood Pressure : / mmHG Vent. Rate : 078 BPM Atrial Rate : 078 BPM P-R Int : 184 ms QRS Dur : 086 ms QT Int : 336 ms P-R-T Axes : 030 015 048 degrees QTc Int : 383 ms Normal sinus rhythm Normal ECG When compared with ECG of 06-SEP-2017 13:08, No significant change was found Confirmed by Nj Deleon ([id number]) on 05/31/2023 4:30:59 PM Referred By: REFERRED SELF Confirmed By:Keegan Deleon
--- NOTE | 2023-05-31 17:49 | Hospitalist Progress Note ---
Date of Service May 31, 2023 Assessment & Plan (1) Acute hypoxemic respiratory failure: Plan: Acute respiratory failure with hypoxia Secondary to severe COVID-19 pneumonia Severe sepsis --CXR:No active disease in the chest. -- Blood cultures pending --Procalcitonin 0.29 CRP pending Continue IV dexamethasone, remdesivir Wean off of supplemental oxygen as able Empirically on doxycycline Albuterol as needed Cholelithiasis Fatty liver Bilateral renal cyst Incidental finding on CT Needs outpatient follow-up Hypothyroidism TSH low, normal free T4 Increase levothyroxine to 125 mcg Needs repeat thyroid function test as outpatient Ulcerative colitis Continue home medication Prediabetes HbA1c 5.8 H/O Subdural hematoma S/P Surgery DVT Px: Lovenox SQ Code Status Full code Admission and Anticipated Discharge Date Admission Date: May 31, 2023 Subjective Patient is seen and examined at bedside Dyspnea better Still has cough Feels very tired today Saturating well on minimal supplemental oxygen Nausea, vomiting resolved Denies any chest pain, abdominal pain, dizziness No other complaints Review of Systems Review of Systems: All systems reviewed & are unremarkable except as noted in Subjective Physical Exam Physical Exam: Physical Exam: Vitals signs as noted above General Appearance:Moderately built and nourished, no apparent distress Head: normocephalic, Atraumatic Eyes: normal inspection, EOMI Neck: supple, Trachea midline Respiratory/Chest: Decreased breath sounds, CTA, No accessory muscle use Cardiovascular: S1, S2, No murmur Abdomen/GI:Soft, Non tender, Bowel sounds present Extremities/Musculoskeletal:normal inspection, no edema Neurologic/Psych:AAOX3, grossly no focal neurological deficits Skin: normal color, warm Results & Data Results & Data Vital Signs (Past 12 Hours) Vital Signs Temp Pulse Pulse Resp BP BP Pulse Ox 05/31/23 15:24 64 05/31/23 14:51 05/31/23 14:34 36.4 C L 58 L 18 113/71 97 05/31/23 11:22 05/31/23 11:16 05/31/23 11:10 36.9 C 59 L 19 104/70 97 05/31/23 10:32 98 05/31/23 10:32 64 16 115/76 98 05/31/23 09:27 61 05/31/23 09:19 62 16 107/60 100 05/31/23 07:51 81 16 97/60 L 98 05/31/23 06:59 73 16 107/69 97 05/31/23 06:00 78 05/31/23 05:57 88 L O2 Del Method O2 Flow Rate 05/31/23 15:24 05/31/23 14:51 Room Air 05/31/23 14:34 Nasal Cannula 2 05/31/23 11:22 Nasal Cannula 2 05/31/23 11:16 Nasal Cannula 2 05/31/23 11:10 Nasal Cannula 2 05/31/23 10:32 Nasal Cannula 2 05/31/23 10:32 Room Air 05/31/23 09:27 05/31/23 09:19 Nasal Cannula 2 05/31/23 07:51 Nasal Cannula 2 05/31/23 06:59 Nasal Cannula 2 05/31/23 06:00 05/31/23 05:57 Nasal Cannula 0 Laboratory Results Short CBC 05/31/23 Range/Units 01:30 WBC 7.58 (4.8-10.8) K/ul Hgb 15.8 (14.0-18.0) g/dl Hct 45.6 (42.0-52.0) % Plt Count 187 (130-400) K/uL BMP 05/31/23 01:30 Sodium 133 L Potassium 4.2 Chloride 100 Carbon Dioxide 23 BUN 11 Creatinine 1.07 Glucose 115 H Calcium 9.9 Liver Function 05/31/23 Range/Units 01:30 Total Bilirubin 0.9 (0.2-1.0) mg/dl Direct Bilirubin 0.1 (0-0.2) mg/dl AST 24 (13-39) U/L ALT 21 (7-52) U/L Alkaline Phosphatase 124 H (34-104) U/L Albumin 4.5 (3.4-5.0) gm/dl Urine 05/31/23 Range/Units 05:17 Urine Color Yellow Urine Appearance Clear (Clear) Urine pH 7.5 (4.5-7.5) Ur Specific [place] 1.043 H (1.000-1.030) Urine Protein Negative (Negative) Urine Glucose (UA) Negative (Negative)
[2023-05-31] MEDS: DOXYCYCLINE HYCLATE 100 MG CAP PO SCH (20:43)
[2023-05-31] MEDS: MESALAMINE 1.2 GM PO SCH (20:43)
[2023-06-01] MEDS: LEVOTHYROXINE SODIUM 125 MCG TABLET PO SCH (06:19)
[2023-06-01 07:49] LABS: C Reactive Protein 2.24 mg/dl (0-0.5); Calcium 9.3 mg/dl (8.6-10.3); Creatinine Clr Calc Pharmacy 81.4 ml/min; Est GFR (African American) 103.7 ml/min; Est GFR (Non-African American) 89.5 ml/min; Magnesium 1.9 mg/dl (1.7-2.4); Potassium 4.1 mmol/L (3.5-5.1)
[2023-06-01 07:51] LABS: Basophils # (auto) 0.01 K/uL (0.00-0.20); Basophils % (auto) 0.2 %; Hematocrit (blood only) 42.7 % (42.0-52.0); Hemoglobin 14.1 g/dl (14.0-18.0); Immature Granulocytes # (auto) 0.02 K/uL (0.01-0.20); Immature Granulocytes % (auto) 0.3 %; Lymphocytes # (auto) 0.95 K/uL (1.20-3.40); Lymphocytes % (auto) 15.1 %; Mean Corpuscular Hemoglobin 29.3 pg (25.0-34.0); Mean Corpuscular Volume 88.6 fL (80.0-100.0); Mean Platelet Volume 10.2 fL (9.4-12.4); Monocytes % (auto) 15.9 %; Neutrophils # (auto) 4.32 K/uL (1.40-6.50); Neutrophils % (auto) 68.5 %; Platelet Count 177 K/uL (130-400); RDW Coefficient of Variation 13.2 % (11.5-14.5); RDW Standard Deviation 43.1 fL (36.4-46.3); Red Blood Count 4.82 M/uL (4.70-6.10)
[2023-06-01] MEDS: MESALAMINE 1.2 GM PO SCH ×2 (07:59→16:23)
[2023-06-01] MEDS: DOXYCYCLINE HYCLATE 100 MG CAP PO SCH ×2 (07:59→22:01)
[2023-06-01] MEDS: dexAMETHasone 6 MG in SYRINGE 0 ML IV SCH (08:06)
[2023-06-01] MEDS: ENOXAPARIN INJ 40 MG/0.4 ML SYR SQ SCH (09:38)
[2023-06-01] MEDS: REMDESIVIR 100 MG in SODIUM CHLORIDE 0.9% 230 ML IV SCH (11:07)
--- NOTE | 2023-06-01 15:36 | Hospitalist Progress Note ---
Date of Service June 01, 2023 Assessment & Plan (1) Acute hypoxemic respiratory failure: Plan: Acute respiratory failure with hypoxia Secondary to severe COVID-19 pneumonia Severe sepsis --CXR:No active disease in the chest. -- Blood cultures: no growth to date --Procalcitonin 0.29 CRP pending Continue IV dexamethasone, remdesivir continue doxycycline Albuterol as needed Wean off of supplemental oxygen Continue current management Cholelithiasis Fatty liver Bilateral renal cyst Incidental finding on CT Needs outpatient follow-up Hypothyroidism TSH low, normal free T4 Increase levothyroxine to 125 mcg Needs repeat thyroid function test as outpatient Ulcerative colitis Continue home medication Prediabetes HbA1c 5.8 H/O Subdural hematoma S/P Surgery DVT Px: Lovenox SQ Code Status Full code Admission and Anticipated Discharge Date Admission Date: May 31, 2023 Subjective Patient is seen and examined at bedside States feeling better today Still has cough with greenish expectoration No significant dyspnea today Saturating low 90s on room air Denies any chest pain, abdominal pain, dizziness No other complaints Review of Systems Review of Systems: All systems reviewed & are unremarkable except as noted in Subjective Physical Exam Physical Exam: Physical Exam: Vitals signs as noted above General Appearance:Moderately built and nourished, no apparent distress Head: normocephalic, Atraumatic Eyes: normal inspection, EOMI Neck: supple, Trachea midline Respiratory/Chest: Decreased breath sounds, CTA, No accessory muscle use Cardiovascular: S1, S2, No murmur Abdomen/GI:Soft, Non tender, Bowel sounds present Extremities/Musculoskeletal:normal inspection, no edema Neurologic/Psych:AAOX3, grossly no focal neurological deficits Skin: normal color, warm Results & Data Results & Data Vital Signs (Past 12 Hours) Vital Signs Temp Pulse Pulse Pulse Resp BP Pulse Ox 06/01/23 15:19 36.3 C L 61 16 115/74 93 06/01/23 11:32 36.4 C L 67 16 109/68 93 06/01/23 10:37 55 L 06/01/23 10:09 06/01/23 08:45 36.5 C 60 16 115/74 93 06/01/23 04:00 36.5 C 64 18 113/73 94 O2 Del Method 06/01/23 15:19 Room Air 06/01/23 11:32 Room Air 06/01/23 10:37 06/01/23 10:09 Nasal Cannula 06/01/23 08:45 Room Air 06/01/23 04:00 Room Air Laboratory Results Short CBC 06/01/23 Range/Units 06:54 WBC 6.30 (4.8-10.8) K/ul Hgb 14.1 (14.0-18.0) g/dl Hct 42.7 (42.0-52.0) % Plt Count 177 (130-400) K/uL BMP 06/01/23 06:54 Sodium 137 Potassium 4.1 Chloride 104 Carbon Dioxide 28 BUN 15 Creatinine 0.88 Glucose 109 H Calcium 9.3
[2023-06-02] MEDS: LEVOTHYROXINE SODIUM 125 MCG TABLET PO SCH (05:53)
[2023-06-02 07:46] LABS: BUN Creatinine Ratio 22.5 (10-20); Calcium 9.3 mg/dl (8.6-10.3); Creatinine Clr Calc Pharmacy 80.6 ml/min; Est GFR (African American) 103.3 ml/min; Est GFR (Non-African American) 89.1 ml/min
[2023-06-02] MEDS: MESALAMINE 1.2 GM PO SCH (10:07)
[2023-06-02] MEDS: DOXYCYCLINE HYCLATE 100 MG CAP PO SCH (10:07)
[2023-06-02] MEDS: dexAMETHasone 6 MG in SYRINGE 0 ML IV SCH (10:08)
[2023-06-02] MEDS: ENOXAPARIN INJ 40 MG/0.4 ML SYR SQ SCH (10:08)
[2023-06-02] MEDS: REMDESIVIR 100 MG in SODIUM CHLORIDE 0.9% 230 ML IV SCH (12:36)
--- NOTE | 2023-06-02 14:29 | Hospitalist Progress Note ---
Date of Service June 02, 2023 Assessment & Plan (1) Acute hypoxemic respiratory failure: Plan: Acute respiratory failure with hypoxia Secondary to severe COVID-19 pneumonia Severe sepsis --CXR:No active disease in the chest. -- Blood cultures: no growth to date --Procalcitonin 0.29 CRP pending Continue IV dexamethasone, Remdesivir Day #3 continue doxycycline Albuterol as needed Weaned off of supplemental oxygen Plan to be discharged home today Cholelithiasis Fatty liver Bilateral renal cyst Incidental finding on CT Needs outpatient follow-up Hypothyroidism TSH low, normal free T4 Increase levothyroxine to 125 mcg Needs repeat thyroid function test as outpatient Ulcerative colitis Continue home medication Prediabetes HbA1c 5.8 H/O Subdural hematoma S/P Surgery DVT Px: Lovenox SQ Code Status Full code Admission and Anticipated Discharge Date Admission Date: May 31, 2023 Subjective Patient is seen and examined at bedside States feeling well today No new complaints Minimal cough Denies any chest pain, abdominal pain, dizziness, dyspnea Prefers to be discharged home today Review of Systems Review of Systems: All systems reviewed & are unremarkable except as noted in Subjective Physical Exam Physical Exam: Physical Exam: Vitals signs as noted above General Appearance:Moderately built and nourished, no apparent distress Head: normocephalic, Atraumatic Eyes: normal inspection, EOMI Neck: supple, Trachea midline Respiratory/Chest: Decreased breath sounds, CTA, No accessory muscle use Cardiovascular: S1, S2, No murmur Abdomen/GI:Soft, Non tender, Bowel sounds present Extremities/Musculoskeletal:normal inspection, no edema Neurologic/Psych:AAOX3, grossly no focal neurological deficits Skin: normal color, warm Results & Data Results & Data Vital Signs (Past 12 Hours) Vital Signs Temp Pulse Pulse Resp BP Pulse Ox O2 Del Method 06/02/23 11:07 36.4 C L 60 16 112/72 94 Room Air 06/02/23 10:00 Room Air 06/02/23 07:46 67 06/02/23 07:34 36.5 C 63 16 116/80 94 Room Air 06/02/23 03:37 36.4 C L 61 20 129/77 96 Room Air Laboratory Results [facility] 06/02/23 06:01 Sodium 137 Potassium 4.0 Chloride 105 Carbon Dioxide 25 BUN 20 Creatinine 0.89 Glucose 109 H Calcium 9.3
--- NOTE | 2023-06-02 14:38 | Discharge Summary ---
Date of Service June 02, 2023 Admission HPI Per Admitting Provider History obtained from patient and records. Medical history significant for hyperlipidemia, hypothyroidism, ulcerative colitis, history of subdural hematoma status post surgery. Few days history of cough symptoms productive of junky yellow sputum. Denies aspiration. Positive COVID-19 contacts. Patient completed COVID-19 vaccination. Chest pain, headache, and shortness of breath from coughing. Poor appetite. Fever, achy abdominal pain with bilious emesis. Some confusion noted by family. Patient brought to ER for evaluation. Lowest O2 sats of 80s noted at the ER. Medical History as above Surgical History : Craniotomy for subdural hematoma evacuation/sylvester holding, vasectomy Family History : Pancreatic cancer, leukemia, alcoholism, DM Personal/Social history : Non-smoker, no EtOH intake, retired [employer] employee Principal Diagnosis Acute respiratory failure with hypoxia severe COVID-19 pneumonia sepsis Cholelithiasis Fatty liver Bilateral renal cyst Hypothyroidism Discharge Data Allergies Allergy/AdvReac Type Severity Reaction Status Date / Time No Known Allergies Allergy Unverified 03/26/19 14:19 Consultations 05/31/23 05:37 ED Decision to Admit Stat Procedures Performed Laboratory Results WBC 6.30 K/ul (4.8-10.8) 06/01/23 06:54 RBC 4.82 M/uL (4.70-6.10) 06/01/23 06:54 Hgb 14.1 g/dl (14.0-18.0) 06/01/23 06:54 Hct 42.7 % (42.0-52.0) 06/01/23 06:54 MCV 88.6 fL (80.0-100.0) 06/01/23 06:54 MCH 29.3 pg (25.0-34.0) 06/01/23 06:54 MCHC 33.0 g/dL (32.0-36.0) 06/01/23 06:54 RDW Std Deviation 43.1 fL (36.4-46.3) 06/01/23 06:54 RDW Coeff of Loida 13.2 % (11.5-14.5) 06/01/23 06:54 Plt Count 177 K/uL (130-400) 06/01/23 06:54 MPV 10.2 fL (9.4-12.4) 06/01/23 06:54 Immature Gran % (Auto) 0.3 % 06/01/23 06:54 Neut % (Auto) 68.5 % 06/01/23 06:54 Lymph % (Auto) 15.1 % 06/01/23 06:54 Barton % (Auto) 15.9 % 06/01/23 06:54 Eos % (Auto) 0.0 % 06/01/23 06:54 Baso % (Auto) 0.2 % 06/01/23 06:54 Neut # (Auto) 4.32 K/uL (1.40-6.50) 06/01/23 06:54 Lymph # (Auto) 0.95 K/uL (1.20-3.40) L 06/01/23 06:54 Barton # (Auto) 1.00 K/uL (0.11-0.59) H 06/01/23 06:54 Eos # (Auto) 0.00 K/uL (0.00-0.50) 06/01/23 06:54 Baso # (Auto) 0.01 K/uL (0.00-0.20) 06/01/23 06:54 Immature Gran # (Auto) 0.02 K/uL (0.01-0.20) 06/01/23 06:54 PT 11.4 Seconds (9.0-12.0) 05/31/23 01:30 INR 1.0 (0.9-1.1) 05/31/23 01:30 ABG pH 7.41 (7.35-7.45) 05/31/23 06:49 ABG pCO2 39 mmHg (35-46) 05/31/23 06:49 ABG pO2 120 mmHg (80-95) H 05/31/23 06:49 ABG HCO3 25 mmol/L (19-24) H 05/31/23 06:49 ABG O2 Saturation 98.9 % (90-95) H 05/31/23 06:49 ABG Base Excess 0.1 mEq/L (-9-1.8) 05/31/23 06:49 Hipolito Test Pos (Pos) 05/31/23 06:49 VBG pH 7.56 (7.36-7.41) H 05/31/23 01:42 VBG pCO2 31 mmHg (38-50) L 05/31/23 01:42 VBG pO2 39 mmHg 05/31/23 01:42 VBG HCO3 28 mmol/L 05/31/23 01:42 VBG O2 Saturation 75.8 % 05/31/23 01:42 VBG Base Excess 5.9 mEq/L 05/31/23 01:42 Oxygen Given 2 L/MIN 05/31/23 06:49 Sodium 137 mmol/L (136-145) 06/02/23 06:01 Potassium 4.0 mmol/L (3.5-5.1) 06/02/23 06:01 Chloride 105 mmol/L (98-107) 06/02/23 06:01 Carbon Dioxide 25 mmol/L (21-32) 06/02/23 06:01 Anion Gap 7 (3-11) 06/02/23 06:01 BUN 20 mg/dl (6-23) 06/02/23 06:01 Creatinine 0.89 mg/dl (0.6-1.4) 06/02/23 06:01 Est Cr Clr Drug Dosing 80.6 ml/min 06/02/23 06:01 Est GFR ( Amer) 103.3 ml/min 06/02/23 06:01 Est GFR (Non-Af Amer) 89.1 ml/min 06/02/23 06:01 BUN/Creatinine Ratio 22.5 (10-20) H 06/02/23 06:01 Glucose 109 mg/dl (70-99(Fasting)) H 06/02/23 06:01 Estimat Average Glucose 120 mg/dl 05/31/23 01:30 Hemoglobin A1c 5.8 % (4.5-5.6) H 05/31/23 01:30 Lactate 1.5 mmol/L (0.4-2.0) 05/31/23 01:30 Calcium 9.3 mg/dl (8.6-10.3) 06/02/23 06:01 Magnesium 1.9 mg/dl (1.7-2.4) 06/01/23 06:54 Total Bilirubin 0.9 mg/dl (0.2-1.0) 05/31/23 01:30 Direct Bilirubin 0.1 mg/dl (0-0.2) 05/31/23 01:30 AST 24 U/L (13-39) 05/31/23 01:30 ALT 21 U/L (7-52) 05/31/23 01:30 Alkaline Phosphatase 124 U/L (34-104) H 05/31/23 01:30 Troponin I High Sens 4.0 pg/ml (0-20) 05/31/23 01:30 C-Reactive Protein 2.24 mg/dl (0-0.5) H 06/01/23 06:54 Total Protein 8.6 gm/dl (6.0-8.3) H 05/31/23 01:30 Albumin 4.5 gm/dl (3.4-5.0) 05/31/23 01:30 Procalcitonin 0.29 ng/ml (0-0.5) 05/31/23 01:30 TSH 0.146 uIu/ml (0.300-4.500) L 05/31/23 01:30 Free T4 1.02 ng/dl (0.61-1.60) 05/31/23 01:30 Urine Color Yellow 05/31/23 05:17 Urine Appearance Clear (Clear) 05/31/23 05:17 Urine pH 7.5 (4.5-7.5) 05/31/23 05:17 Ur Specific [place] 1.043 (1.000-1.030) H 05/31/23 05:17 Urine Protein Negative (Negative) 05/31/23 05:17 Urine Glucose (UA) Negative (Negative) 05/31/23 05:17 Urine Ketones Negative (Negative) 05/31/23 05:17 Urine Blood Negative (Negative) 05/31/23 05:17 Urine Nitrite Negative (Negative) 05/31/23 05:17 Urine Bilirubin Negative (Negative) 05/31/23 05:17 Urine Urobilinogen Negative (Negative) 05/31/23 05:17 Ur Leukocyte Esterase Negative (Negative) 05/31/23 05:17 Adenovirus (PCR) Not Detected (NotDetected) 05/31/23 01:30 B. pertussis DNA (PCR) Not Detected (NotDetected) 05/31/23 01:30 B.parapertussis DNA PCR Not Detected (NotDetected) 05/31/23 01:30 C. pneumoniae DNA (PCR) Not Detected (NotDetected) 05/31/23 01:30 Coronavirus OC43 (PCR) Not Detected (NotDetected) 05/31/23 01:30 Coronavirus HKU1 (PCR) Not Detected (NotDetected) 05/31/23 01:30 Coronavirus 229E (PCR) Not Detected (NotDetected) 05/31/23 01:30 SARS-CoV-2 (PCR) DETECTED (NotDetected) A* 05/31/23 01:30 Coronavirus NL63 (PCR) Not Detected (NotDetected) 05/31/23 01:30 Human Metapneumovir PCR Not Detected (NotDetected) 05/31/23 01:30 Influenza Type A (PCR) Not Detected (NotDetected) 05/31/23 01:30 Influenza Type B (PCR) Not Detected (NotDetected) 05/31/23 01:30 M. pneumoniae (PCR) Not Detected (NotDetected) 05/31/23 01:30 Parainfluenza 1 (PCR) Not Detected (NotDetected) 05/31/23 01:30 Parainfluenza 2 (PCR) Not Detected (NotDetected) 05/31/23 01:30 Parainfluenza 3 (PCR) Not Detected (NotDetected) 05/31/23 01:30 Parainfluenza 4 (PCR) Not Detected (NotDetected) 05/31/23 01:30 RSV (PCR) Not Detected (NotDetected) 05/31/23 01:30 Entero/Rhino (PCR) Not Detected (NotDetected) 05/31/23 01:30 Impressions Chest X-Ray 05/31/23 01:25 SINGLE VIEW CHEST CLINICAL HISTORY: Sepsis. FINDINGS: An AP, portable, upright chest radiograph is compared to study dated 03/26/2019. The cardiomediastinal silhouette is unremarkable. The lungs and pleural spaces are clear. No pneumothorax is seen. The bony thorax is grossly intact. IMPRESSION: No active disease in the chest. ACT 112: Negative or not required by law. Electronically signed by: Trev Burk M.D. 05/31/2023 7:19 AM Ordered Studies 05/31/23 02:59 CT abd pelvis IV con only Stat Hospital Course (1) Acute hypoxemic respiratory failure: Acute respiratory failure with hypoxia Secondary to severe COVID-19 pneumonia Severe sepsis --CXR:No active disease in the chest. -- Blood cultures: no growth to date --Procalcitonin 0.29 CRP pending Continue IV dexamethasone, Remdesivir Day #3 continue doxycycline Albuterol as needed Weaned off of supplemental oxygen Plan to be discharged home today Cholelithiasis Fatty liver Bilateral renal cyst Incidental finding on CT Needs outpatient follow-up Hypothyroidism TSH low, normal free T4 Increase levothyroxine to 125 mcg Needs repeat thyroid function test as outpatient Ulcerative colitis Continue home medication Prediabetes HbA1c 5.8 H/O Subdural hematoma S/P Surgery DVT Px: Lovenox SQ Code Status Full code Total Time Total Time Spent Total Time Spent (In Minutes): 54 inutes Discharge Plan Discharge Items Patient Disposition: Home - Self-Care Reason For Visit: RESP FAILURE, COVID Discharge Diagnosis: Acute respiratory failure with hypoxia severe COVID-19 pneumonia sepsis Cholelithiasis Fatty liver Bilateral renal cyst Hypothyroidism Activity: Per Instructions section Exercise/Sports: Wait until after follow-up appointment Non-emergency contact: Primary Care Provider Call non-emergency contact if: you have any medication questions, your symptoms worsen, your pain is concerning for you and you have a fever Follow-up/Referrals: Jules Coronado MD [Primary Care Provider] - Diet: Heart Healthy Addtl Attending Provider Instructions: Follow-up with your primary care physician in 1 week -- Complete the doxycycline (antibiotic) and prednisone taper course as prescribed. Prednisone taper course Start taking prednisone 20 mg daily for 2 days and then take 10 mg daily for 2 days then stop --Obtain blood test (repeat thyroid function test--TSH and free T4 in 4 weeks) and follow-up with your physician for further adjustment of medications as needed --Your blood cultures are pending at the time of discharge. Follow-up with your physician for results. -- You are incidentally noted to have gallstones, kidney cysts on CT scan. Discussed with your physician for further recommendations as needed. Seek immediate medical attention if your symptoms reoccur or worsen Please take all medications as instructed on discharge list below. Please call if you have any questions or problems. You can reach a [facility] hospitalist on duty at [facility] 24 hours a day by calling [phone] Home Isolation COVID-19 Instructions The following information about Home Isolation is from the CDC Website: https://www.cdc.gov/coronavirus/2019-ncov/hcp/qtisjbcr-ljgmymj-wfntop.html Stay home except to get medical care People who are mildly ill with COVID-19 are able to isolate at home during their illness. You should restrict activities outside your home, except for getting medical care. Do not go to work, school, or public areas. Avoid using public transportation, ride-sharing, or taxis. Separate yourself from other people and animals in your home People: As much as possible, you should stay in a specific room and away from other people in your home. Also, you should use a separate bathroom, if available. Animals: You should restrict contact with pets and other animals while you are sick with COVID-19, just like you would around other people. Although there have not been reports of pets or other animals becoming sick with COVID-19, it is still recommended that people sick with COVID-19 limit contact with animals until more information is known about the virus. When possible, have another member of your household care for your animals while you are sick. If you are sick with COVID-19, avoid contact with your pet, including petting, snuggling, being kissed or licked, and sharing food. If you must care for your pet or be around animals while you are sick, wash your hands before and after you interact with pets and wear a face mask. Call ahead before visiting your doctor If you have a medical appointment, call the healthcare provider and tell them that you have or may have COVID-19. This will help the healthcare providers office take steps to keep other people from getting infected or exposed. Wear a face mask You should wear a face mask when you are around other people (e.g., sharing a room or vehicle) or pets and before you enter a healthcare providers office. If you are not able to wear a face mask (for example, because it causes trouble breathing), then people who live with you should not stay in the same room with you, or they should wear a face mask if they enter your room. Cover your coughs and sneezes Cover your mouth and nose with a tissue when you cough or sneeze. Throw used tissues in a lined trash can. Immediately wash your hands with soap and water for at least 20 seconds or, if soap and water are not available, clean your hands with an alcohol-based hand inspector eyeglass frames that contains at least 60% alcohol. Clean your hands often Wash your hands often with soap and water for at least 20 seconds, especially after blowing your nose, coughing, or sneezing; going to the bathroom; and before eating or preparing food. If soap and water are not readily available, use an alcohol-based hand inspector eyeglass frames with at least 60% alcohol, covering all surfaces of your hands and rubbing them together until they feel dry. Soap and water are the best option if hands are visibly dirty. Avoid touching your eyes, nose, and mouth with unwashed hands. Avoid sharing personal household items You should not share dishes, drinking glasses, cups, eating utensils, towels, or bedding with other people or pets in your home. After using these items, they should be washed thoroughly with soap and water. Clean all high-touch surfaces everyday High touch surfaces include counters, tabletops, doorknobs, bathroom fixtures, toilets, phones, keyboards, tablets, and bedside tables. Also, clean any surfaces that may have blood, stool, or body fluids on them. Use a household cleaning spray or wipe, according to the label instructions. Labels contain instructions for safe and effective use of the cleaning product including precautions you should take when applying the product, such as wearing gloves and making sure you have good ventilation during use of the product. Monitor your symptoms Seek prompt medical attention if your illness is worsening (e.g., difficulty breathing).Beforeseeking care, call your healthcare provider and tell them that you have, or are being evaluated for, COVID-19. Put on a face mask before you enter the facility. These steps will help the healthcare providers office to keep other people in the office or waiting room from getting infected or exposed. Ask your healthcare provider to call the local or state health department. Persons who are placed under active monitoring or facilitated self- monitoring should follow instructions provided by their local health department or occupational health professionals, as appropriate. When working with your local health department check their available hours. If you have a medical emergency and need to call 911, notify the dispatch pe community health that you have, or are being evaluated for COVID-19. If possible, put on a face mask before emergency medical services arrive. Discontinuing home isolation Patients with confirmed COVID-19 should remain under home isolation precautions until the risk of secondary transmission to others is thought to be low. The decision to discontinue home isolation precautions should be made on a [id number] basis, in consultation with healthcare providers and state and local health departments. Pending Studies at Discharge: Yes Studies:: Blood Cultures Stand-Alone Forms: My [facility], Smoking Cessation Medications and DC Order Prescriptions: New doxycycline hyclate 100 mg Capsule 100 mg PO BID Qty: 10 0RF albuterol sulfate [Ventolin HFA] 90 mcg/actuation Hfa Aerosol Inhaler 2 puff inhalation Q6H PRN (Reason: shortness of breath or wheezing) Qty: 6.7 0RF levothyroxine [Synthroid] 125 mcg Tablet 125 mcg PO DAILYBB Qty: 30 0RF prednisone 10 mg tablet 10 mg PO DIRECTED Qty: 6 0RF Rx Instructions: Take prednisone 20 mg daily for 2 days and then take 10 mg daily for 2 days and stop Continued mesalamine [Lialda] 1.2 gram Tablet,Delayed Release (Dr/Ec) 2.4 g PO BIDM Qty: 0 Rx Instructions: take 2 tablets with morning and evening meals betamethasone, augmented 0.05 % ointment 1 applic TOPICAL BID PRN (Reason: flares) Discontinued levothyroxine 112 mcg tablet 112 mcg PO DAILYBB Discharge Orders: Discharge Order (Routine); Ordered 06/02/23 Ordered By: Jeo Umana Admission Data Admit Date/Time: 05/31/23 06:20 Attending Provider: Joe Umana Admit Provider: Urbano Lua Primary Care Provider: Jules Coronado Other Providers: Urbano Lua
--- OUTSIDE RECORDS SUMMARY | 2023-06-06 15:11 | External Medical Summary | Summary of Care ---
Author Name Unknown Organization [facility] [address] [place] [address] Phone [phone] Care Team Providers Care Town Marshal Name Role Phone Jules Coronado MD Primary Care Provider [phone] Encounter Details Date Type Department Care Team Description 02/04/2023 Orders Only Orthopaedics [facility] [address] [place] [address] Cathy Wesley MD [address] [place] [address] Allergies Active Allergy Reactions Severity Noted Date Comments No Known Drug Allergy 08/03/2010 documented as of this encounter (statuses as of 05/17/2023) Medications Medication Sig Dispensed Refills Start Date End Date Status Mesalamine 1.2 GM Oral Tablet Delayed Release (Lialda)Indications:Ul cerative rectosigmoiditis without complication (HCC) take 2 tablets by mouth twice a day with MORNING AND EVENING MEALS 360 Tablet 3 05/09/2022 Active Levothyroxine Sodium 125 MCG Oral Tablet (Levoxyl) Take 1 Tablet by mouth in the morning. (at least 30 min prior to breakfast or other meds). 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 Giardiasis 11/01/2005 08/31/2017 Other specified hypothyroidism 11/01/2005 1 08/21/2015 NO KNOWN PROBLEMS 10/17/2005 11/01/2005 documented as of this encounter (statuses as of 05/17/2023) Immunizations Name Administration Dates Next Due COVID-19 mRNA, LNP-s, No Pre serve, 2-Dose Series ([employer]) 12/18/2020,11/25/2020 HEP A - Hepatitis A (Adult > 18 yrs) 11/19/2018, 04/29/2010 Hepatitis B, 20+ yrs 11/19/2018 Pneumococcal Conjugate Vacci ne, 20-valent ([id number]) 11/27/2022 SEASONAL INFLUENZA, PF, 6 M & Above, IM , (FLULAVAL or FLUZONE) 05/10/2020,06/26/2017 Seasonal Influenza, Quadriva lent Hd (Fluzone Hd) 05/09/2022 Seasonal Influenza, Quadriva lent, No Preserve, IM 05/08/2018 Seasonal Influenza, Split, I IV3, With Preserve, Inj 04/16/2014,04/29/2010,04/29/2009 TDAP (age 10 and older)(Boostrix) 07/28/2019 TDAP (age 11 and older)(Adacel) 12/30/2008 Varicella Zoster Vaccine (Adult) 03/01/2017 Zoster Vaccine Recombinant (Shingrix) 07/28/2019 documented as of this encounter Social History Tobacco Use Types Packs/Day Years Used Date Smoking Tobacco: Never Smokeless Tobacco: Never Alcohol Use Standard Drinks/Week Comments No 0 (1 standard drink = 0.6 oz pur e alcohol) Food Insecurity Answer Date Recorded Within the past 12 months, y ou worried that your food would run out before you got money to buy more. Never true 11/27/2022 Within the past 12 months, t he food you bought just didn't last and you didn't have money to get more. Never true 11/27/2022 Sex Assigned at Date Recorded Not on file Job Start Date Occupation Industry Not on file Not on file Not on file documented as of this encounter Functional Status Functional Status Response Date of Assess ment Are you deaf or do you have serious difficulty h earing? No 09/18/2017 Are you blind or do you have serious difficulty seeing, even when wearing glasses? No 09/18/2017 Do you have serious difficul ty walking or climbing stairs? (5 years old or older) No 09/18/2017 Do you have difficulty dress ing or bathing? (5 years old or older) No 09/18/2017 Because of a physical, menta l, or emotional condition, do you have difficulty doing errands alone such as visiting a doctor s office or shopping? (15 years old or older) No 09/18/19 Cognitive Status Response Date of Assessm ent Because of a physical, menta l, or emotional condition, do you have serious difficulty concentrating, remembering, or making decisions? (5 years old or older No 09/18/2017 documented as of this encounter Plan of Treatment Upcoming Encounters Date Type Specialty Care Team Description 07/16/2023 Office Visit Ophthalmology Hilario Rivera, DO [address] [place] [address] 08/23/2023 Office Visit Gastroenterology Cira [place] CRNP [address] [place] [address] 05/13/2024 Office Visit Family Medicine [facility] Coronado [facility] [address] [facility] [address] Health Maintenance Due Date Last Done Comments Cologuard 2001 Fecal Occult Blood Test 2001 Sigmoidoscopy 2001 Zoster Vaccines (3 of 3) 09/22/2019 07/28/2019, 09/2016 COVID-19 Vaccine ( season) 2023 12/18/2020, 11/25/2020 Depression Screening 11/28/2023 11/27/2022 TSH 05/10/2024 05/10/2023, 05/07/2022, 07/10/2022, Additional history exists Diabetes Screening 05/10/2026 05/10/2023, 1 , 06/14/2021, Additional history exists Lipid Panel 05/10/2028 05/10/2023, 04/29, 06/14/2021, Additional history exists DTaP,Tdap,and Td Vaccines (3 - Td or Tdap) 07/28/2029 07/28/2019, 12/30/2008 Colonoscopy 06/16/2032 06/16/2022, 05/30, 04/18/2016, Additional history exists Colorectal Cancer Screening 06/16/2032 Hepatitis B Completed 11/19/2018, 10/28, 10/12/2003 COLONOSCOPY-EVERY 5 YRS AGES 18-100 Discontinued 06/16/2022, 06/16/2022, 04/18/2016, Additional history exists Pneumococcal Vaccine: 65+ Years Completed 11/27/2022 Influenza Vaccine (FLU shot) Completed 05/10/2023, 05/09/2022, 05/10/2020, Additional history exists GARDASIL-HPV IMMUNIZATION SERIES Aged Out No longer eligible based on patient's age to complete this topic MENINGOCOCCAL (MENACTRA/MENVEO) Aged Out No longer eligible based on patient's age to complete this topic documented as of this encounter Medical Devices Not on filedocumented as of this encounter Procedures Procedure Name Priority Date/Time Associated Diagnosis Comments RADIOLOGY EXAM - GENERAL RAD (IMAGES ONLY,NO REPORT) Routine 02/04/2023 1:50 PM EDT documented in this encounter Results * RADIOLOGY EXAM - GENERAL RAD (IMAGES ONLY,NO REPORT) (02/04/2023 1:50 PM EDT) 02/04/2023 1:50 PM EDT Narrative Scheduling, Silent - 05/17/2023 4:00 PM EDT This is an imaging study not interpreted or resulted by a [facility] or [facility] contracted radiologist. Cathy Wesley MD RADIOLOGY ([facility]) documented in this encounter Advance Directives Latest Code Status on File Code Status Date Activated Date Inactivated Comments Full Code 09/18/2017 5:23 PM 09/21/2017 12:37 AM This order reflects the patients wishes and were consensually agreed upon. Code Status History Code Status Date Activated Date Inactivated Comments Full Code 09/18/2017 4:05 PM 09/18/2017 5:23 PM This order reflects the patients wishes and were consensually agreed upon. Full Code 09/06/2017 7:24 PM 09/10/2017 8:13 PM This o rder reflects the patients wishes and were consensually agreed upon. Care Teams Town Marshal Relationship Specialty Start Date End Date Jules Coronado MD [address] [place], [place] [id number] PCP - General Family Medicine 12/08/20 documented as of this encounter
--- OUTSIDE RECORDS SUMMARY | 2023-06-06 15:11 | External Medical Summary | Summary of Care ---
Author Name Unknown Organization [facility] Address [address] [place] [address] Phone [phone] Care Team Providers Care Clinical Research Scientist Name Role Phone Jules Coronado MD Primary Care Provider [phone] Reason for Visit * Reason Onset Date Comments Test Results 05/20/2023 Encounter Details Date Type Department Care Team ([facility] st Contact Info) Description 05/20/2023 Telephone [facility] [address] [place] [address] Jules Coronado MD [address] [place] [address] Test Results Allergies Active Allergy Reactions Criticality Noted Date Comments No Known Drug Allergy 08/03/2010 documented as of this encounter (statuses as of 05/20/2023) Medications Medication Sig Dispensed Refills Start Date End Date Status Mesalamine 1.2 GM Oral Tablet Delayed Release (Lialda)Indications:U lcerative 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 (at least 30 min prior to breakfast or other meds). 90 Tablet 3 05/20/2023 Active Levothyroxine Sodium 125 MCG Oral Tablet (Levoxyl) Take 1 Tablet by mouth in the morning. (at least 30 min prior to breakfast or other meds). 90 Tablet 3 12/10/2022 3 Discontinu ed(Medicat ion/Dose Changed) documented as of this encounter (statuses as of 05/20/2023) Active Problems Problem Noted Date Diagnosed Date Hyperlipidemia 05/10/2023 Ulcerative colitis 11/27/2022 Incidental lung nodule, > 3mm and < 8mm 09/28/19 18 Hypothyroidism due to acquired atrophy of thyroi d 06/21/2016 Ulcerative colitis, rectosigmoid 09/15/2010 documented as of this encounter (statuses as of 05/20/2023) Resolved Problems Problem Noted Date Diagnosed Date Resolved Date Sacroiliitis 05/09/2022 05/10/2023 SDH (subdural hematoma) 09/10/2017 08/0 08/2017 Overview: Subacute ADVANCE DIRECTIVE INFORMATION 10/17/2007 06/29/2018 Overview: Information given to patient. Giardiasis 11/01/2005 08/31/2017 Other specified hypothyroidism 11/01/2005 06/21/2016 NO KNOWN PROBLEMS 10/17/2005 11/01/2005 documented as of this encounter (statuses as of 05/20/2023) Immunizations Name Administration Dates Next Due COVID-19 mRNA, LNP-s, No Pre serve, 2-Dose Series (Evident.io) 12/18/2020,11/25/2020 HEP A - Hepatitis A (Adult > 18 yrs) 11/19/2018, 04/29/2010 Hepatitis B, 20+ yrs 11/19/2018 Pneumococcal Conjugate Vacci ne, 20-valent ([id number]) 11/27/2022 SEASONAL INFLUENZA, PF, 6 M & Above, IM , (FLULAVAL or FLUZONE) 05/10/2020,06/26/2017 Seasonal Influenza, Quadriva lent Hd (Fluzone Hd) 05/10/2023,05/09/2022 Seasonal Influenza, Quadriva lent, No Preserve, IM [...] drink = 0.6 oz pur e alcohol) PHQ-2 Answer Date Recorded PHQ Adult Total Score 0 11/27/2022 Hunger Vital Sign Answer Date Recorded Within the past 12 months, y ou worried that your food would run out before you got the money to buy more. Never true 11/28/19 23 Within the past 12 months, t he food you bought just didn't last and you didn't have money to get more. Never true 11/27/2022 Sex and Gender Information Value Date Recorded Sex Assigned at Not on file Gender Identity Not on file Sexual Orientation Not on file Job Start Date Occupation [...] (15 years old or older) No 09/18/19 18 Cognitive Status Response Date of Assessm ent Because of a physical, menta l, or emotional condition, do you have serious difficulty concentrating, remembering, or making decisions? (5 years old or older No 09/18/2017 documented as of this encounter Miscellaneous Notes * Telephone Encounter - Jules Coronado MD - 05/20/2023 11:05 AM EDT Notify Pt: the thyroid blood test indicates he is getting too mujch Levothyroxin. I suggest decrease dose to 112mcg daily and repeat the TSH 2 moinths. Ordered med and test documented in this encounter Plan of Treatment Upcoming Encounters Date Type Department Care Team (Late st Contact Info) Description 07/16/2023 10:00 AM EST Office Visit Ophthalmology, [facility] [address] [place] [address] Hilario Rivera, [address] [place] [address] 08/23/2023 8:00 AM EST Office Visit Gastroenterology, [facility] [address] [place] [address] Cira Montana CRNP [address] [place] [address] 05/13/2024 7:40 AM EDT Office Visit [facility] [address] [place] [id number] Jules Coronado MD [address], [place] [phone] Scheduled Orders Name Type Priority Associated Diagnoses Orde r Schedule TSH WITH FREE T4 IF INDICATED Lab Routine Hypothyroidism due to acquired atrophy of thyroid Expected: 05/20/2023 (Approximate), Expires: 05/19/2024 Health Maintenance Due Date Last Done Comments Cologuard 2001 Fecal Occult Blood Test 2001 Sigmoidoscopy 2001 Zoster Vaccines (3 of 3) 09/22/2019 07/28/2019, 0809/2016 COVID-19 Vaccine ( season) 2023 12/18/2020, 11/25/2020 Depression Screening 11/28/2023 11/27/2022 TSH 05/10/2024 05/10/2023, 05/0 07/2022, 07/10/2022, Additional history exists Diabetes Screening 05/10/2026 [...] Not on filedocumented as of this encounter Visit Diagnoses Diagnosis Hypothyroidism due to acquired atrophy of thyroid- Primary documented in this encounter Advance Directives Latest [...] and were consensually agreed upon. Care Teams Clinical Research Scientist Relationship Specialty Start Date End Date Jules Coronado MD [address] [facility] [place] [id number] PCP - General Family Medicine 12/08/20 documented as of this encounter
--- OUTSIDE RECORDS SUMMARY | 2023-06-06 15:11 | External Medical Summary | Summary of Care ---
Author Name Unknown Organization [facility] Address [address] [place] [address] Phone [phone] Care Team Providers Care Cane Flume Chute Operator Name Role Phone Jules Coronado MD Primary Care Provider [phone] Encounter Details Date Type Department Care Team Description 02/04/2023 Hospital Encounter Radiology Film File [address] [place] [address] Allergies Active Allergy Reactions Severity Noted Date Comments No Known Drug Allergy 08/03/2010 documented as of this encounter (statuses as of 05/18/2023) Medications Medication Sig Dispensed Refills Start Date [...] as of this encounter (statuses as of 05/18/2023) Active Problems Problem Noted Date Hyperlipidemia 05/10/2023 Ulcerative colitis 11/27/2022 Incidental lung nodule, > 3mm and < 8mm 09/27/2017 Hypothyroidism due to acquired atrophy o f thyroid 06/21/2016 Ulcerative colitis, rectosigmoid 011 documented as of this encounter (statuses as of 05/18/2023) Resolved Problems Problem Noted Date Resolved Date Sacroiliitis 05/09/2022 05/10/2023 SDH (subdural hematoma) 09/10/2017 02/29/20 18 Overview: Subacute ADVANCE DIRECTIVE INFORMATION 10/17/2007 Overview: Information given to patient. Giardiasis 11/01/2005 08/31/2017 Other specified hypothyroidism 11/01/2005 1 08/21/2015 NO KNOWN PROBLEMS 10/17/2005 11/01/2005 documented as of this encounter (statuses as of 05/18/2023) Immunizations Name Administration Dates Next Due COVID-19 mRNA, LNP-s, No Pre serve, 2-Dose Series (CS-Keys) 12/18/2020,11/25/2020 HEP A - Hepatitis A (Adult > 18 yrs) 11/19/2018, 04/29/2010 Hepatitis B, 20+ yrs 11/19/2018 Pneumococcal Conjugate Vacci ne, 20-valent ([id number]) 11/27/2022 SEASONAL INFLUENZA, PF, 6 M & [...] Office Visit Ophthalmology Hilario Rivera, DO [address] [place] [address] 08/23/2023 Office Visit Gastroenterology Cira Montana CRNP [address] [facility] [place] [address] 05/13/2024 Office Visit Family Medicine Jules Coronado MD [address], [place] [phone] Health Maintenance Due Date Last Done Comments Cologuard 2001 Fecal Occult Blood Test 2001 Sigmoidoscopy 2001 Zoster Vaccines (3 of 3) 09/22/2019 07/28/2019, 09/2016 COVID-19 Vaccine ( season) 2023 12/18/2020, 11/25/2020 Depression Screening 11/28/2023 11/27/2022 TSH 05/10/2024 05/10/2023, 3, 07/10/2022, Additional history exists Diabetes Screening 05/10/2026 [...] interpreted or resulted by a [facility] or [employer] [facility] contracted radiologist. Cathy Wesley MD RADIOLOGY (RAD GENERAL) documented in this encounter Advance Directives [...] and were consensually agreed upon. Care Teams Cane Flume Chute Operator Relationship Specialty Start Date End Date Jules Coronado MD [address], [place] [phone] PCP - General Family Medicine 12/08/20 documented as of this encounter
--- OUTSIDE RECORDS SUMMARY | 2023-06-06 15:11 | External Medical Summary | Summary of Care ---
Author Name Unknown Organization [facility] Address [address] [place] [address] Phone [phone] Care Team Providers Care Painter Assistant Name Role Phone Jules Coronado MD Primary Care Provider [phone] Reason for Visit * Reason Onset Date Comments Test Results 05/20/2023 Encounter Details Date Type Department Care Team ([facility] st Contact Info) Description 05/20/[address] [facility] [address] [place] [address] Jules Coronado MD [address] [place] [address] Test Results Allergies Active Allergy Reactions Criticality Noted Date Comments No Known Drug Allergy 08/03/2010 documented as of this encounter (statuses as of 05/21/2023) Medications Medication Sig Dispensed Refills Start Date [...] as of this encounter (statuses as of 05/21/2023) Active Problems Problem Noted Date Diagnosed Date Hyperlipidemia 05/10/2023 Ulcerative colitis 11/27/2022 Incidental lung nodule, > 3mm and < 8mm 09/28/19 18 Hypothyroidism due to acquired atrophy of thyroi d 06/21/2016 Ulcerative colitis, rectosigmoid 09/15/2010 documented as of this encounter (statuses as of 05/21/2023) Resolved Problems Problem Noted Date Diagnosed Date Resolved Date Sacroiliitis 05/09/2022 05/10/2023 SDH (subdural hematoma) 09/10/2017 08/0 08/2017 Overview: Subacute ADVANCE DIRECTIVE INFORMATION 10/17/2007 06/29/2018 Overview: Information given to patient. Giardiasis 11/01/2005 08/31/2017 Other specified hypothyroidism 11/01/2005 06/21/2016 NO KNOWN PROBLEMS 10/17/2005 11/01/2005 documented as of this encounter (statuses as of 05/21/2023) Immunizations Name Administration Dates Next Due COVID-19 mRNA, LNP-s, No Pre serve, 2-Dose Series (Logly) 12/18/2020,11/25/2020 HEP A - Hepatitis A (Adult > 18 yrs) 11/19/2018, 04/29/2010 Hepatitis B, 20+ yrs 11/19/2018,11/12/2003,10/11 Pneumococcal Conjugate Vacci ne, 20-valent ([id number]) 11/27/2022 SEASONAL INFLUENZA, PF, 6 M & [...] encounter Miscellaneous Notes * Telephone Encounter - WILLIAMS Cast ASSIST - 05/21/2023 2:18 PM EDT Spoke with pt and advised previous message. Verbalized understanding. * Telephone Encounter - Jules Coronado MD [...] 07/16/2023 10:00 AM EST Office Visit Ophthalmology, [facility] [address] [place] [address] Hilario Rivera, DO [address] [place] [address] 08/23/2023 8:00 AM EST Office Visit Gastroenterology, [facility] [address] [place] [address] Cira Montana CRNP [address] [place] [address] 05/13/2024 7:40 AM EDT Office Visit [facility] [address] [place] [phone] Jules Coronado MD [address], [place] [phone] Scheduled Orders Name Type Priority Associated Diagnoses Orde r Schedule TSH WITH FREE T4 IF INDICATED Lab Routine Hypothyroidism due to acquired atrophy of thyroid Expected: 05/20/2023 (Approximate), Expires: 05/19/2024 Health Maintenance Due Date Last Done Comments Cologuard 2001 Fecal Occult Blood Test 2001 Sigmoidoscopy 2001 Zoster Vaccines (3 of 3) 09/22/2019 07/28/2019, 09/2016 COVID-19 Vaccine (3 - 2022- season) 2023 12/18/2020, 11/25/2020 Depression Screening 11/28/2023 [...] and were consensually agreed upon. Care Teams Painter Assistant Relationship Specialty Start Date End Date Jules Coronado MD [address] [facility] [place] [id number] PCP - General Family Medicine 12/08/20 documented as of this encounter
--- OUTSIDE RECORDS SUMMARY | 2023-06-06 15:11 | External Medical Summary | Summary of Care ---
Author Name Unknown Organization [facility] Address [address] [place] [address] Phone [phone] Care Team Providers Care Nurse Sitter Name Role Phone Jules Coronado MD Primary Care Provider [phone] Reason for Referral * Evaluate & Treat - Unlimited Visits (Within 10 days (routine)) - Authorized Specialty Diagnoses / Procedures Referred By Tila zarco Referred To Contact Physical Therapy / Physical Medicine And Rehab Diagnoses Acute pain of left knee Primary osteoarthritis of one knee, left Cathy Wesley MD [address] [employer] [facility] [address] Referral ID Status Reason Start Date Expiration Date Visits Requested Visits Authorized [id number] Authorized Specialty Services Required 3 [phone] Question Answer Referral Priority Within 10 days (routine) Where should this appointment be scheduled? [facility] Reason for Visit * Reason Comments NEW PATIENT L knee * Evaluate & Treat - Unlimited Visits (Within 30 days (routine)) - Authorized Specialty Diagnoses / Procedures Referred By Tila zarco Referred To Contact Sports Medicine / Orthopedics Diagnoses Chronic pain of left knee Jules Coronado MD [address] [place] [address] Referral ID Status Reason Start Date Expiration Date Visits Requested Visits Authorized [id number] Authorized Specialty Services Required 3 [phone] Encounter Details Date Type Department Care Team Description 05/16/2023 Office Visit [facility] [place] [address] Cathy Wesley MD [address] [place] [address] Acute pain of left knee*; Primary osteoarthritis of one knee, left Allergies Active Allergy Reactions Severity Noted Date Comments No Known Drug Allergy 08/03/2010 documented as of this encounter (statuses as of 05/16/2023) Medications Medication Sig Dispensed Refills Start Date [...] other meds). 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 Giardiasis 11/01/2005 08/31/2017 Other specified hypothyroidism 11/01/2005 1 08/21/2015 NO KNOWN PROBLEMS 10/17/2005 11/01/2005 documented as of this encounter (statuses as of 05/16/2023) Immunizations Name Administration Dates Next Due COVID-19 mRNA, LNP-s, No Pre serve, 2-Dose Series ([employer]) 12/18/2020,11/25/2020 HEP A - Hepatitis A (Adult > 18 yrs) 11/19/2018, 04/29/2010 Hepatitis B, 20+ yrs 11/19/2018 Pneumococcal Conjugate Vacci ne, 20-valent ([id number]) 11/27/2022 SEASONAL INFLUENZA, PF, 6 M & [...] No 09/18/2017 documented as of this encounter Progress Notes * Cathy Wesley MD - 05/16/2023 9:30 AM EDT Hal Russo is a 67 year old male who presents for consultation to [facility] Sports Medicine for left knee injury/pain. Consult requested by Jules Coronado MD. office note 05/10/2023 reviewed. Hal Russo is here with his/her daughter History: Chief Complaint Patient presents with NEW PATIENT L knee Nursing Notes: Susana Camargo ATC 05/16/23 0837 Signed Patient presents for referral of L knee injury. Patient was wrestling with his son and had his legslocked in when his son twisted him. Patient has been experiencing pain since. Patient is wearing a brace on the L knee and has been icing. OJ Meza Hal Russo reports that left knee pain started about 3 months ago. He was wrestling with his 40yo son and sustained a twisting injury to the left knee. Was able to walk afterwards but was limping. Had some swelling in the knee. Continuing to have some intermittent issues with swelling and pain now 3 months later. Points to the medial aspect of the knee is location of the pain. Pain does not radiate. There is nonumbness tingling burning or weakness. There is intermittent swelling but denies any locking or giving way. No prior knee injuries. He is now retired. Likes to bowl and walk his dog. Review of systems: All others negative except those noted above in HPI. Review of patient's allergies indicates: Allergen Reactions No Known Drug Allergy Current Outpatient Medications Medication Sig Dispense Refill Mesalamine 1.2 GM Oral Tablet Delayed Release (Lialda) take 2 tablets by mouth twice a day with MORNING AND EVENING MEALS 360 Tablet 3 Levothyroxine Sodium 125 MCG Oral Tablet (Levoxyl) Take 1 Tablet by mouth in the morning. (at least30 min prior to breakfast or other meds). 90 Tablet 3 Betamethasone Dipropionate Aug 0.05 % External Ointment (Diprolene AF) APPLY 2X DAILY TO RASH ON LEGS UNTIL RESOLVED, THEN WHEN FLARING 50 g 0 No current facility-administered medications for this visit. Past Medical History: Diagnosis Date Adjustment disorder with anxious mood 11/02 ADVANCE DIRECTIVE INFORMATION 10/17/2007 Information given to patient. Benign neoplasm of colon 07/18/2010 path suggests that you may have crohn's disease Dysplasia of colon 04/16/13 COLONOSCOPY FLEXIBLE PROXIMAL DIAGNOSTIC performed by Trenton Monterroso MD at ENDOSCOPY [facility] no evidence of dysplasia , stool negative for C-Difficile Giardiasis 10/16/05 Hypothyroidism 10/02 Hypothyroidism due to acquired atrophy of thyroid 06/21/2016 Incidental lung nodule, > 3mm and < 8mm 09/27/2017 SDH (subdural hematoma) (HCC) Patient Active Problem List Diagnosis Code Ulcerative colitis, rectosigmoid (HCC) K51.30 Hypothyroidism due to acquired atrophy of thyroid E03.4 Incidental lung nodule, > 3mm and < 8mm R91.1 Ulcerative colitis (HCC) K51.90 Hyperlipidemia E78.5 Past Surgical History: Procedure Laterality Date COLONOSCOPY W/ BIOPSY (RECTUM) 10/24/2007 bx's taken; mild rectal irritation from prep-repeat in 10 yrs COLONOSCOPY W/ BIOPSY (RECTUM) 07/18/2010 path suggests that you may have crohn's disease COLONOSCOPY, DIAGNOSTIC (RECTUM) 04/16/2013 COLONOSCOPY FLEXIBLE PROXIMAL DIAGNOSTIC performed by Trenton Monterroso MD at ENDOSCOPY [facility] no evidence of dysplasia , stool negative for C-Difficile COLONOSCOPY, DIAGNOSTIC (RECTUM) 04/18/2016 normal bx, repeat 5 yrs/COLONOSCOPY FLEXIBLE PROXIMAL DIAGNOSTIC performed by Trenton Monterroso MD at [facility]COPY [facility] COLONOSCOPY, DIAGNOSTIC (RECTUM) 06/16/2022 normal bx, diverticulosis / COLONOSCOPY FLEXIBLE PROXIMAL DIAGNOSTIC performed by Ken Ware MD at ENDOSCOPY [facility] OPEN SKULL FOR REMOVAL OF HEMATOMA Left 09/18/2017 CRANIOTOMY EVACUATION OF SUBDURAL OR EXTRADURAL HEMATOMA SUPRATENTORIAL performed by Bry Parikh DO at [place] [facility] MATA SKULL TO REMOVE HEMATOMA Left 09/18/2017 DEE HOLE DRAINAGE SUBDURAL HEMATOMA performed by Bry Parikh DO at [facility] VASECTOMY 07/30/1992 Social History Socioeconomic History Marital status: Spouse name: Not on file Number of children: 2 Years of education: Not on file Highest education level: Not on file Occupational History 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: [employer] Tobacco Use Smoking status: Never Smokeless tobacco: Never Vaping Use Vaping Use: Never used Substance and Sexual Activity Alcohol use: No Drug use: No Sexual activity: Not Currently Other Topics Concern Service No Blood Transfusions No Caffeine Concern Not Asked Occupational Exposure Not Asked Hobby Hazards Not Asked Sleep Concern No Stress Concern Yes Weight Concern Yes Comment: current due to crohns Special Diet No Back Care Not Asked Exercise Not Asked Bike Helmet Not Asked Seat Belt Not Asked Self-Exams Not Asked Social History Narrative Not on file Social Determinants of Health Financial Resource Strain: Not on file Food Insecurity: No Food Insecurity Worried About Running Out of Food in the Last Year: Never true Ran Out of Food in the Last Year: Never true Transportation Needs: Not on file Physical Activity: Not on file Stress: Not on file Social Connections: Not on file Intimate Partner Violence: Not on file Housing Stability: Not on file Family History Problem Relation Age of Onset Cancer Father pancreas Other (alcoholic) Father Other (alcoholic) Grandmother (Paternal) Cancer Mother leukemia Diabetes Brother half brother, mother Family History; none relevant to today's HPI Objective: Physical Exam There were no vitals filed for this visit. Estimated body mass index is 28.41 kg/m as calculated from the following: Height as of 05/10/23: 1.676 m (5' 6"). Weight as of 05/10/23: 79.8 kg (176 lb). General: generally well-nourished and in no acute distress HEENT: normocephalic, atraumatic, sclera anicteric. Psych: mood and affect normal , cooperative Card: Peripheral pulses: normal in affected extremity (s) Resp: equal chest rise, non-tachypneic, non-labored breathing Skin: no rash, normal Neuro: Sensation: normal on affected extremity (s) MSK: Gait/station/stance: normal reciprocal gait, non antalgic without an assistive device on smooth flat indoor surface. Knee Exam, Bilateral Inspection: No obvious deformity, no redness, swelling, warmth, bruising, abrasion. Alignment normal Bilateral Palpation: Tender to palpation medial and lateral joint line ROM: Flexion/Neutral/Extension: L - 140/0/0, R - 140/0/0 Popliteal Angle (Hamstring Flexibility): 30 Bilateral Strength: R- Strength: Extension - 5/5 Flexion - 5/5 L - Strength: Extension - 5/5 Flexion - 5/5 quadriceps tone is Good Special Tests: Negative valgus and varus stress test at 0 and 30. Negative Sasha's and anterior drawer. Negativesag and posterior drawer. Mild pain with Palma's replicating medial joint line pain. Negative Apley's. Positive Thessaly. Negative Hanna's and grind. Radiology (I have personally reviewed the following films): 05/16/2023: Four view x-ray of the left knee No acute osseous abnormalities. Medial compartment narrowing - per my interpretation. Awaiting formal radiology interpretation. Advised patient I will call or message them if any changes from the above. Assessment and Plan: ICD-10-CM 1. Acute pain of left knee M25.562 2. Primary osteoarthritis of one knee, left M17.12 Mr. Russo is a pleasant 67-year-old male who is seen today for evaluation of left knee pain ongoing for the past 3 months after a twisting injury. Suspect exacerbation of osteoarthritis and possible degenerative meniscus tears etiology of patient's pain. We discussed this in detail. I discussed recommendations for conservative management at this time as he has full pain-free range of motion andstrength. We discussed [id number]-[id number] anti-inflammatories, knee bracing, physical therapy, injections. Patient would like to avoid injections and surgery at all cost. Was interested in just trialing [id number] ibuprofen, physical therapy, and knee brace. 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 He will follow up on an as-needed basis. The above assessment and plan were discussed at length. All questions were answered, and the patient expressed understanding. Cathy Wesley MD Primary Care Sports Medicine [facility] Orthopaedics [facility] [address] [facility] [address] documented in this encounter Nursing Notes * Susana Camargo ATC - 05/16/2023 8:35 AM EDT Patient presents for referral of L knee injury. Patient was wrestling with his son and had his legslocked in when his son twisted him. Patient has been experiencing pain since. Patient is wearing a brace on the L knee and has been icing. OJ Meza documented in this encounter Plan of Treatment Upcoming Encounters Date Type Specialty Care Team Description 07/16/2023 Office Visit Ophthalmology Hilario Rivera, DO [address] [place] [address] 08/23/2023 Office Visit Gastroenterology Cira [place] CRNP [address] [facility] [address] 05/13/2024 Office Visit Family Medicine Jules Coronado MD [address] [place] [address] Pending Results Name Type Priority Associated Diagnoses Date /Time XR KNEE 4 OR MORE VIEWS Medical Imaging Routine Acute pain of left knee 05/16/2023 9:05 AM EDT Scheduled Referrals Name Type Priority Associated Diagnoses Orde r Schedule PHYSICAL THERAPY REFERRAL OP Referral Within 10 days (routine) Acute pain of left knee Primary osteoarthritis of one knee, left Ordered: 05/16/2023 Health Maintenance Due Date Last Done Comments Cologuard 2001 Fecal Occult Blood Test 2001 Sigmoidoscopy 2001 Zoster Vaccines (3 of 3) 09/22/2019 07/28/2019, 08/09/2016 COVID-19 Vaccine (3 - season) 2023 12/18/2020, 11/25/2020 Depression Screening 11/28/2023 [...] as of this encounter Visit Diagnoses Diagnosis Acute pain of left knee- Primary Primary osteoarthritis of one knee, left documented in this encounter Advance Directives Latest [...] and were consensually agreed upon. Care Teams Nurse Sitter Relationship Specialty Start Date End Date Jules Coronado MD [address] [place] [address] PCP - General Family Medicine 12/08/20 documented as of this encounter
--- OUTSIDE RECORDS SUMMARY | 2023-06-06 15:12 | External Medical Summary ---
Author Name Unknown Address Unknown Organization K01:[facility] [address] [facility] [place] [address] Laboratory Report Ordering Provider Test Date Status JORGE AREVALO 05/10/2023 12:49:50 Final Observation Date Value Abnormality Reference (Units ) Status Triglyceride 05/10/2023 12:49:50 108 <=174 ( mg/dL) Final Triglyceride Reference Range s (mg/dL):
<150 Acceptable
150-174 Borderline high
175-499 High
>=500 Very high Cholesterol 05/10/2023 12:49:50 196 <200 (mg /dL) Final Total Cholesterol Reference Ranges (mg/dL):
<200 Desirable
200-239 Borderline high
>=240 High HDL 05/10/2023 12:49:50 32 Below low normal >39 (mg/dL) Final HDL Cholesterol Reference Ra nges (mg/dL):
>=60 High (Desirable)
<50 Low (Undesirable) For Females
<40 Low (Undesirable) For Males NON-HDL CHOLESTEROL 05/10/2023 12:49:50 164 Above high normal <=159 (mg/dL) Final Non-HDL Cholesterol Referenc e Range (mg/dL):
<100 Target level for high risk ASCVD patient
<130 Optimal for general population
130-159 Near optimal for general population
160-189 Borderline High
190-219 High
>=220 Very High LDL, (calculated) 05/10/2023 12:49:50 142 Above high n ormal <=129 (mg/dL) Final LDL Cholesterol Reference Ra nges (mg/dL):
<70 Target level for high risk ASCVD patient
<100 Optimal for general population
100-129 Near optimal for general population
130-159 Borderline high
160-189 High
>=190 Very high Performing Location [facility] - [address] [facility] [address]
--- OUTSIDE RECORDS SUMMARY | 2023-06-06 15:12 | External Medical Summary ---
Author Name Unknown Address Unknown Organization K01:[facility] - [address] [place] [address] Laboratory Report Ordering Provider Test Date Status JORGE AREVALO 05/10/2023 12:49:50 Final Observation Date Value Abnormality Reference (Units ) Status T4, Free 05/10/2023 12:49:50 1.5 0.9-1.7 (n g/dL) Final Performing Location [facility] - [address] [facility] [address]
--- OUTSIDE RECORDS SUMMARY | 2023-06-06 15:12 | External Medical Summary | Summary of Care ---
Author Name Unknown Organization [facility] Address [address] [place] [address] Phone [phone] Care Team Providers Care Bread Wrapper Operator Name Role Phone Jules Coronado MD Primary Care Provider [phone] Reason for Visit * Reason Onset Date Comments Test Results 12/10/2022 Encounter Details Date Type Department Care Team Description 12/10/2022 Telephone [facility] [address] [place] [address] Jules Coronado MD [address] [place] [address] Test Results Allergies Active Allergy Reactions Severity Noted Date Comments No Known Drug Allergy 08/03/2010 documented as of this encounter (statuses as of 12/11/2022) Medications Medication Sig Dispensed Refills Start Date End Date Status Betamethasone Dipropionate Aug 0.05 % External Ointment (Diprolene AF)Indications:Contac t dermatitis, unspecified contact dermatitis type, unspecified trigger,Nummular dermatitis APPLY 2X DAILY TO RASH ON LEGS UNTIL RESOLVED, THEN WHEN FLARING 50 g 0 05/01/2022 Active Mesalamine 1.2 GM Oral Tablet Delayed Release (Lialda)Indications:U lcerative rectosigmoiditis without complication (HCC) take 2 tablets by mouth twice a day with MORNING AND EVENING MEALS 360 Tablet 3 05/09/2022 Active Levothyroxine Sodium 125 MCG Oral Tablet (Levoxyl) Take 1 Tablet by mouth in the morning. (at least 30 min prior to breakfast or other meds). 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 Giardiasis 11/01/2005 08/31/2017 Other specified hypothyroidism 11/01/2005 1 08/21/2015 NO KNOWN PROBLEMS 10/17/2005 11/01/2005 documented as of this encounter (statuses as of 12/11/2022) Immunizations Name Administration Dates Next Due COVID-19 mRNA, LNP-s, No Pre serve, 2-Dose Series ([employer]) 12/18/2020,11/25/2020 HEP A - Hepatitis A (Adult > 18 yrs) 11/19/2018, 04/29/2010 Hepatitis B, 20+ yrs 11/19/2018 Pneumococcal Conjugate Vacci ne, 20-valent ([id number]) 11/27/2022 Seasonal Influenza, Quadriva lent Hd (Fluzone Hd) 05/09/2022 Seasonal Influenza, Quadriva lent, No Preserve, 6 Mons & Above, IM 05/10/2020,06/26/2017 Seasonal Influenza, Quadriva lent, No Preserve, IM [...] encounter Miscellaneous Notes * Telephone Encounter - Kylee Dos Santos LPN - 12/11/2022 2:47 PM EDT Patient aware and verbalized understanding, will comply Patient scheduled for appt. * Telephone Encounter - Jules Coronado MD - 12/10/2022 7:36 AM EDT Notify Pt: TSH is again low. This means we need to lower Levothyroxine dose to 125mcg daily. RepeatTSH 2 months. documented in this encounter Plan of Treatment Upcoming Encounters Date Type Specialty Care Team Description 02/12/2023 Laboratory [facility] [address] [place] [address] 05/10/2023 Office Visit Family Medicine Jules Coronado MD [address] [place] [address] 05/30/2023 Office Visit Family Jules Arzate MD [address] [place] [address] Scheduled Orders Name Type Priority Associated Diagnoses Orde r Schedule TSH WITH FREE T4 IF INDICATED Lab Routine Hypothyroidism due to acquired atrophy of thyroid Expected: 12/10/2022 (Approximate), Expires: 12/10/2023 Health Maintenance Due Date Last Done Comments Cologuard 2001 Fecal Occult Blood Test 2001 Sigmoidoscopy 2001 Zoster Vaccines (3 of 3) 09/22/2019 07/28/2019, 0809/2016 COVID-19 Vaccine (3 - Booster for Pfizer series) 02/12/2021 12/18/2020, 11/25/2020 Depression Screening, Annual for Pts 12 and Over 11/28/2023 11/27/2022 TSH FOR THYROID MEDICATION MONITORING YEARLY 11/28/2023 11/27/2022, 07/10/2022, 05/10/2022, Additional history exists Diabetes Screening 05/10/2025 05/10/2022, 1 08/14/2020, 04/23/2020, Additional history exists Lipid Panel 05/10/2027 05/10/2022, 05/30, 04/08/2015, Additional history exists DTaP,Tdap,and Td Vaccines (3 - Td or Tdap) 07/28/2029 07/28/2019, 12/30/2008 Colonoscopy 06/16/2032 06/16/2022, 05/30, 04/18/2016, Additional history exists Colorectal Cancer Screening 06/16/2032 Hepatitis B Completed 11/19/2018, 10/28, 10/12/2003 Influenza Vaccine (FLU shot) Completed 05/09/2022, 05/10/2020, 05/08/2018, Additional history exists COLONOSCOPY-EVERY 5 YRS AGES 18-100 Discontinued 06/16/2022, 06/16/2022, 04/18/2016, Additional history exists Pneumococcal Vaccine: 65+ Years Completed 11/27/2022 GARDASIL-HPV IMMUNIZATION SERIES Aged Out No longer [...] and were consensually agreed upon. Care Teams Bread Wrapper Operator Relationship Specialty Start Date End Date Jules Coronado MD [address] [place] [address] PCP - General Family Medicine 12/08/20 documented as of this encounter
--- OUTSIDE RECORDS SUMMARY | 2023-06-06 15:12 | External Medical Summary | Summary of Care ---
Author Name Unknown Organization [facility] Address [address] [place] [address] Phone [phone] Care Team Providers Care Plant Cytologist Name Role Phone Jules Coronado MD Primary Care Provider [phone] Reason for Referral * Evaluate & Treat - Unlimited Visits (Within 30 days (routine)) - Authorized Specialty Diagnoses / Procedures Referred By Tila zarco Referred To Contact Ophthalmology Diagnoses Coloboma of lid of eye Jules Coronado MD [address] [place] [address] Hilario Rivera T, DO [address] [place] [address] Referral ID Status Reason Start Date Expiration Date Visits Requested Visits Authorized [id number] Authorized Specialty Services Required 3 [phone] Question Answer Referral Priority Within 30 days (routine) Where should this appointment be scheduled? 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 [facility] For what condition is the patient being referred? All Gastro Conditions Comments Ulcerative colitis * Evaluate & Treat - Unlimited Visits (Within 30 days (routine)) - Authorized Specialty Diagnoses / Procedures Referred By Tila zarco Referred To Contact Sports Medicine / Orthopedics Diagnoses Chronic pain of left knee Jules Coronado MD [address] [place] [address] Referral ID Status Reason Start Date Expiration Date Visits Requested Visits Authorized [id number] Authorized Specialty Services Required 3 [phone] Question Answer Referral Priority Within 30 days (routine) Where should this appointment be scheduled? [facility] What body part is the patient being seen for? Thigh/Knee What condition is the patient being seen for? Arthritis including related infection Comments Pain/ swelling left knee x 3 months Reason for Visit * Reason Onset Date Comments Physical-Exam Medication Administration 05/10/2023 Flu an d/or Pneumo Inj Encounter Details Date Type Department Care Team Description 05/10/[address] 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); Nummular dermatitis; Contact dermatitis, unspecified contact dermatitis type, unspecified trigger; Screening for condition; Need for prophylactic vaccination and inoculation against influenza Allergies Active Allergy Reactions Severity Noted Date Comments No Known Drug Allergy 08/03/2010 documented as of this encounter (statuses as of 05/10/2023) Medications Medication Sig Dispensed Refills Start Date [...] WHEN FLARING 50 g 0 05/10/2023 Active Betamethasone Dipropionate Aug 0.05 % External Ointment (Diprolene AF)Indications:Contac t dermatitis, unspecified contact dermatitis type, unspecified trigger,Nummular dermatitis APPLY 2X DAILY TO RASH ON LEGS UNTIL RESOLVED, THEN WHEN FLARING 50 g 0 05/01/2022 3 Discontinu ed(Refill) documented as of this encounter (statuses as of 05/10/2023) Active Problems Problem Noted Date Hyperlipidemia 05/10/2023 Ulcerative colitis 11/27/2022 Incidental lung nodule, > 3mm and < 8mm 09/27/2017 Hypothyroidism due to acquired atrophy o f thyroid 06/21/2016 Ulcerative colitis, rectosigmoid 011 documented as of this encounter (statuses as of 05/10/2023) Resolved Problems Problem Noted Date Resolved Date Sacroiliitis 05/09/2022 05/10/2023 SDH (subdural hematoma) 09/10/2017 02/29/20 18 Overview: Subacute ADVANCE DIRECTIVE INFORMATION 10/17/2007 Overview: Information given to patient. Giardiasis 11/01/2005 08/31/2017 Other specified hypothyroidism 11/01/2005 1 08/21/2015 NO KNOWN PROBLEMS 10/17/2005 11/01/2005 documented as of this encounter (statuses as of 05/10/2023) Immunizations Name Administration Dates Next Due COVID-19 mRNA, LNP-s, No Pre serve, 2-Dose Series (Pfizer) 12/18/2020,11/25/2020 HEP A - Hepatitis A (Adult > 18 yrs) 11/19/2018, 04/29/2010 Hepatitis B, 20+ yrs 11/19/2018 Pneumococcal Conjugate Vacci ne, 20-valent ([id number]) 11/27/2022 SEASONAL INFLUENZA, PF, 6 M & [...] Date Smoking Tobacco: Never Smokeless Tobacco: Never Tobacco Cessation:Counseling Given: Not Answered Alcohol Use Standard Drinks/Week Comments No 0 [...] on file documented as of this encounter Last Filed Vital Signs Vital Sign Reading Time Taken Comments Blood Pressure 112/60 05/10/2023 10:58 AM EDT Pulse 62 05/10/2023 10:58 AM EDT Temperature 36.6 C (97.9 F) 05/10/2023 10:58 AM E DT Respiratory Rate 20 05/10/2023 10:58 AM EDT Oxygen Saturation 96% 05/10/2023 10:58 AM EDT Inhaled Oxygen Concentration - - Weight 79.8 kg (176 lb) 05/10/2023 10:58 AM EDT Height 167.6 cm (5' 6") 05/10/2023 10:58 AM EDT Body Mass Index 28.41 05/10/2023 10:58 AM EDT documented in this encounter Functional Status Functional Status Response [...] No 09/18/2017 documented as of this encounter Patient Instructions * Patient Instructions* Inna Lopez LPN - 05/10/2023 10:57 AM EDT Patient Instructions - Fall Prevention (This education is for all patients over 65 regardless of symptoms) Remember to take your current medications as prescribed. In order to prevent falls, you are encouraged to: Exercise Utilize assistive/adaptive devices Avoid multifocal lenses when walking Avoid hazards in home Maintain a regular toileting schedule Any questions please contact our office. Preventing Falls in the Home (This education is for all patients over 65 regardless of symptoms) As you get older, falls are more likely. Thats because your reaction time slows. Your muscles and joints may also get stiffer, making them less flexible. Illness, medications, and vision changes can also affect your balance. A fall could leave you unable to live on your own. To make your home safer, follow these tips: Floors Put nonskid pads under area rugs Remove throw rugs Replace worn floor coverings Tack carpets firmly to each step on carpeted stairs. Put nonskid strips on the edges of uncarpeted stairs Keep floors and stairs free of clutter and cords Arrange furniture so there are clear pathways Clean up any spills right away Bathrooms Install grab bars in the tub or shower Apply nonskid strips or put a nonskid rubber mat in the tub or shower Sit on a bath chair to bathe Use bathmats with nonskid backing Lighting Keep a flashlight in each room Put a nightlight along the pathway between the bedroom and the bathroom Leah Patient Education Copyright 2008 - 2010 Leah except where otherwise noted Preventing Falls: Exercises to Improve Balance, Flexibility, Strength, and Staying Power (This education is for all patients over 65 regardless of symptoms) Certain types of exercises may help make you less likely to fall. Try the ones below. Or do other exercises that your healthcare provider suggests. Depending on your health, you may need to start slowly. Dont let that stop you. Even small amounts of exercise can help you. Be sure to talk to yourhealthcare provider before starting any exercise program. Improve Balance Many types of exercise can help improve balance. Lamonte chi and yoga are good examples. Heres another one to try. You can do it anytime and almost anywhere. Stand next to a counter or solid support. Push yourself up onto your tiptoes. Hold for 5 seconds. If you start to lose your balance, hold on to the counter. Rest and repeat 5 times. Work up to holding for 20 to 30 seconds, if you can. Increase Flexibility Being more flexible makes it easier for you to move around safely. Try exercises like the seated hamstring stretch. Sit in a chair and put one foot on a stool. Straighten your leg and reach with both hands down either side of your leg. Reach as far down your leg as you can. Hold for about 20 seconds. Go back to the starting position. Then repeat 5 times. Switch legs. Build Strength Resistance exercises help build strength. You can do them without equipment. Or you can use weights, elastic bands, or special machines. One such exercise is called the biceps curl. You can hold a 1 pound weight or even a can of soup. Do this exercise at least 3 times a week. Strive for everyday. Sit up straight in a chair. Keep your elbow close to your body and your wrist straight. Bend your arm, moving your hand up to your shoulder. Then slowly lower your arm. Repeat 5 times. Switch to the other arm. Build Your Staying Power Aerobic exercises make your heart and lungs stronger so you can keep moving longer. Walking and swimming are two of the best types of exercises you can do. Using a stationary bike is great, too. Find an aerobic exercise that you enjoy. Start slowly and build up. Even 5 minutes is helpful. Aimfor a goal of 30 minutes, at least 3 times a week. You dont have to do 30 minutes in one session. Break it up and walk a little throughout the day. More Helpful Tips Start easy. Slowly work up to doing more. Talk with your healthcare provider about the best exercises for you. Call senior centers or health clubs about exercise programs. If needed, have a family member watch you walk every so often to check your stability. Exercise with a friend. Choose an activity you both enjoy. Try exercises that you can do anytime, anywhere. Here are two examples. Have someone with you when you first try these: Practice walking by placing one foot right in front of the other. Stand up and sit down 10 times. Repeat this throughout the day. [employer] Patient Education Copyright 2009 - 2010 [employer] except where otherwise noted. Preventing Falls: Moving Safely Using a Cane or Walker (This education is for all patients over 65 regardless of symptoms) Keep the cane away from your feet so you dont trip. A walking aid, such as a cane or walker, can help you stay more independent and avoid falls. Remember to keep your walking aid within easy reach when youre in a chair or in bed. And learn how to use it safely so you dont injure yourself. Using a Cane If you have a stronger side, hold the cane on that side. Get your balance. Move the cane and your weaker leg forward. Support your weight on both the cane and your weaker side. Step with your stronger leg. Start again from step 1. If youre using a folding walker, be sure you know how to lock it open. Check that its locked open before each use. Using a Walker Roll the walker (or lift it, if youre using one without wheels) forward about 12 inches. Step forward with your weaker leg first. Use the walker to help keep your balance. Bring your other foot forward to the center of the walker. Start again from step 1. Helpful Tips Check with your healthcare provider about the right walking aid to use. Ask about a walker with a seat attached. Check the tips of your cane or walker to make sure they have nonskid covers. Move slowly from room to room. Dont morillo. Sit down to get dressed. Use a mike pack or backpack to keep your hands free. Get help for jobs that mean climbing, even on a stepstool. Leah Patient Education Copyright 2008 - 2010 Leah except where otherwise noted. Treating Urinary Incontinence in Men (This education is for all patients over 65 regardless of symptoms) You can't always control the release of urine. You may leak urine. Or you may not be able to hold your urine until you can get to a bathroom. This is called urinary incontinence. The problem can be managed. Talk to your doctor about your treatment options. Taking Medications Prescription medications may help you. They may: Help the sphincter to work better. (This is the muscle that closes to keep urine from leaking out of the bladder.) Help stop the bladder from jerry too often to push urine out. Help the bladder muscles contract with more force. Help relax the sphincter muscle and allow urine to flow more freely. Making Changes to Your Routine Certain changes in your daily routine may help. These include: Avoiding caffeine and alcohol. Using timed voiding. This is following a schedule for drinking fluids and urinating. Doing Kegel exercises daily. These exercises involve tightening the muscles in your sphincter and around your bladder to help strengthen them. Your doctor can explain how to do them. Using a Catheter A catheter is a narrow tube that is inserted through the urethra into the bladder. It drains urine.A condom catheter covers the penis. It channels urine into a collection bag. It is worn most of thetime. Intermittent catheterization means inserting a catheter to drain the bladder, then removing it. This is done on a regular schedule. Having Surgery If other options don't work, surgery may be recommended. If surgery is an option, your healthcare provider can discuss it with you and explain its risks and benefits. Healing After Prostate Surgery Surgery on the prostate gland can cause incontinence. Most often, the incontinence is only for a short time. It clears up when healing is complete. Very rarely, prostate surgery can result in permanent incontinence. ~~PATIENT INSTRUCTIONS FOR FLU SHOT~~ Possible side effects of influenza vaccine, (flu shot), are usually mild and include: 1. Soreness or redness at injection site 2. Low grade fever 3. Body aches You may use Tylenol/Acetaminophen as needed for these symptoms. LET YOUR DOCTOR KNOW IMMEDIATELY IF YOU HAVE DIFFICULTY BREATHING OR SWALLOWING, EXPERIENCE ITCHINGOF FEET OR HANDS, HAVE SWELLING OF EYES, FACE OR INSIDE OF NOSE. documented in this encounter Progress Notes * Inna Lopez LPN - 05/10/2023 12:05 PM EDT PRE - ADMINISTRATION DOCUMENTATION Are you experiencing any cold symptoms or fever? No Have you had Guillain-Humnoke Syndrome (an illness that causes paralysis) within the last 6 weeks? No Have you had the flu shot in the past? YES Have you ever had a reaction to the flu shot? No Inna Lopez LPN, 05/10/2023 12:05 PM Immunization Administration Documentation Time Out Procedure Performed: Yes Patient Identified (Ask Name/Date of ): Yes Does the patient have a fever greater than 101 degrees today? No Patient allergic to latex? No VFC Stock: No Immunization(s) verified: Yes, Immunization Name: Flu, VIS Sheet(s) given: Yes Verified Side and Site: Yes Verified Shot(s) with Parent(s)/Patient: Yes * Jules Coronado MD - 05/10/2023 11:34 AM EDT Subjective: Hal Russo is a 67 year old male. Chief Complaint Patient presents with Physical-Exam HPI: 67-year-old seen today for annual exam with a couple of problems. He has a known history of ulcerative colitis. Really has not had any significant difficulties he is using mesalamine 2 tablets aday in the morning and has not had any symptoms. Last colonoscopy was 1 year ago which was unremarkable. There was note of need follow-up with GI on outpatient basis but again has not been done the last time he was seen was about 5 years ago. Also has a history of hypothyroid. His TSH was low when done in November of this year. Currently is on 125 mcg levothyroxine. Having problems with the left knee for about 3 months. It is primarily the medial aspect of the knee. Sometimes it swells up. He is wearing to knee braces to help. Also notes intermittent locking of his left thumb at the PIP joint Patient Active Problem List Diagnosis Code Ulcerative colitis, rectosigmoid ([facility]) K51.30 Hypothyroidism due to acquired atrophy of thyroid E03.4 Incidental lung nodule, > 3mm and < 8mm R91.1 Sacroiliitis ([facility]) M46.1 Ulcerative colitis ([facility]) K51.90 Current Outpatient Medications Medication Sig Dispense Refill Betamethasone Dipropionate Aug 0.05 % External Ointment (Diprolene AF) APPLY 2X DAILY TO RASH ON LEGS UNTIL RESOLVED, THEN WHEN FLARING 50 g 0 Mesalamine 1.2 GM Oral Tablet Delayed Release (Lialda) take 2 tablets by mouth twice a day with MORNING AND EVENING MEALS 360 Tablet 3 Levothyroxine Sodium 125 MCG Oral Tablet (Levoxyl) Take 1 Tablet by mouth in the morning. (at least30 min prior to breakfast or other meds). 90 Tablet 3 No current facility-administered medications for this visit. Review of patient's allergies indicates: Allergen Reactions No Known Drug Allergy Objective: BP 112/60 | Pulse 62 | Temp 36.6 C (97.9 F) (Temporal Artery) | Resp 20 | Ht 1.676 m (5' 6") | Wt 79.8 kg (176 lb) | SpO2 96% | BMI 28.41 kg/m | BSA 1.93 m Physical Exam: CONST: alert, pleasant, no acute distress HEAD: normocephalic, atraumatic NECK: supple, soft, no adenopathy EARS: canals normal, TMs normal Eyes - PERRLA, EOM'I OROPHARYNX: clear, no swelling or erythema, moist. Both upper and lower dentures CV: regular rate and rhythm, no murmur CHEST: clear to auscultation bilaterally, no rales or wheezing ABD: soft, non tender, non distended, no masses or hepatosplenomegaly EXT: no edema, no joint swelling or deformities, . I did not try to replicate locking in the left thumb. I did not detect any Um focal area of tenderness He does have tenderness over the medial joint line of the left knee. I did not appreciate any significant edema NEURO: AAOx3, no gross focal deficits, cerebellar signs normal, affect appropriate MENTAL STATUS: no evidence of thought disorder, no delusional thought, no evidence of paranoia, thought is non-tangential. SKIN: He has a 3 mm clear opaque cyst in the medial aspect of his right eye upper eyelid ASSESSMENT/PLAN: Risk and functional assessment (Primary) Chronic pain of left knee-refer to sports medicine Trigger finger left thumb-refer to sports medicine Ulcerative colitis-guided get him back in in reestablish with Gastroenterology. Previously he saw Cira [place]. Check comprehensive metabolic panel. Right eyelid cyst-refer to Dr. Rivera at [facility] Hypothyroid-check TSH. For now continue levothyroxine 125 mcg daily Routine health maintenance-she is given flu shot today. Screening for condition-check lipid profile Jules Coronado MD documented in this encounter Nursing Notes * Inna Lopez LPN - 05/10/2023 10:57 AM EDT The patient has been properly identified by confirmation of name and date of . Chief Complaint Patient presents with Physical-Exam Needs medication refills Ortho referral for knee documented in this encounter Plan of Treatment Upcoming Encounters Date Type Specialty Care Team Description 05/16/2023 Office Visit Orthopedics Cathy Wesley MD [address] [place] [phone] 07/16/2023 Office Visit Ophthalmology Hilario Rivera, [address] [facility] [place] [address] 08/23/2023 Office Visit Gastroenterology Cira [place] CRNP [address] [place] [phone] 05/13/2024 Office Visit Family Medicine Jules Coronado MD [address] [place] [address] Pending Results Name Type Priority Associated Diagnoses Date /Time COMPREHENSIVE METABOLIC PANEL Lab Routine 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) 05/10/2023 12:49 PM EDT LIPID PANEL WITH DIRECT LDL IF TG IS HIGH Lab Routine Screening for condition 05/10/2023 12:49 PM EDT Scheduled Orders Name Type Priority Associated Diagnoses Orde r Schedule COMPREHENSIVE METABOLIC PANEL Lab Routine 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) Expected: 05/10/2023 (Approximate), Expires: 05/09/2024 LIPID PANEL WITH DIRECT LDL IF TG IS HIGH Lab Routine Screening for condition Expected: 05/10/2023, Expires: 05/10/2024 Scheduled Referrals Name Type Priority Associated Diagnoses Orde r Schedule SPORTS MEDICINE REFERRAL OP Referral Within 30 days (routine) Chronic pain of left knee Ordered: 05/10/2023 GASTROENTEROLOGY REFERRAL OP Referral Within 30 days (routine) 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) Ordered: 05/10/2023 ADULT/PEDS OPHTHALMOLOGY/OPTOMETRY REFERRAL OP Referral Within 30 days (routine) Coloboma of lid of eye Ordered: 05/10/2023 Health Maintenance Due Date Last Done Comments Cologuard 2001 Fecal Occult Blood Test 2001 Sigmoidoscopy 2001 Zoster Vaccines (3 of 3) 09/22/2019 07/28/2019, 08/09/2016 COVID-19 Vaccine ( season) 2023 12/18/2020, 11/25/2020 Depression Screening 11/28/2023 11/27/2022 TSH 11/28/2023 11/27/2022, 06/29, 05/10/2022, Additional history exists Diabetes Screening 05/10/2025 [...] as of this encounter Visit Diagnoses Diagnosis Risk and functional assessment- Primary Screening for unspecified condition Chronic pain of left knee Pain in joint, lower leg 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 Care Teams Plant Cytologist Relationship Specialty Start Date End Date Jules Coronado MD [address] [place] [id number] PCP - General Family Medicine 12/08/20 documented as of this encounter
--- OUTSIDE RECORDS SUMMARY | 2023-06-06 15:12 | External Medical Summary ---
Author Name Unknown Address Unknown Organization [id number]:LAB[facility]ATORY [facility] [place] - [address] [facility] [place] [address] Laboratory Report Ordering Provider Test Date Status JORGE AREVALO 05/10/2023 12:49:50 Final Observation Date Value Abnormality Reference (Units ) Status BUN 05/10/2023 12:49:50 12 6-20 (mg/dL) Final Creatinine 05/10/2023 12:49:50 0.8 0.6-1.2 (mg/dL) Final Glomerular filtration rate/1.73 sq M.predicted [Volume Rate/Area] in Serum, Plasma or Blood by Creatinine-based formula (CKD-EPI) 05/10/2023 12:49:50 >90 >=60 (mL/min) Final eGFR is calculated based on the CKD-EPI 2020 equation SODIUM 05/10/2023 12:49:50 138 135-146 (m mol/L) Final Potassium 05/10/2023 12:49:50 4.9 3.5-5.1 (m mol/L) Final Cl 05/10/2023 12:49:50 100 98-107 (mm ol/L) Final CO2 05/10/2023 12:49:50 27 22-32 (mmo l/L) Final Anion gap 05/10/2023 12:49:50 11 7-15 (mmol /L) Final Glucose 05/10/2023 12:49:50 93 70-120 (mg /dL) Final Albumin 05/10/2023 12:49:50 4.7 3.8-5.0 (g /dL) Final AST (Aspartate aminotransferase) 05/10/2023 12:49:50 25 10-50 (U/L) Fin al Alk Phos 05/10/2023 12:49:50 141 Above high normal 35 -130 (U/L) Final Bilirubin, Total 05/10/2023 12:49:50 0.4 <=1 .2 (mg/dL) Final Calcium 05/10/2023 12:49:50 9.6 8.4-10.2 ( mg/dL) Final Protein 05/10/2023 12:49:50 7.4 6.0-8.3 (g /dL) Final ALT (Alanine aminotransferase) 05/10/2023 12:49:50 29 10-50 (U/L) Shin pablo Performing Location [facility] [place] - [facility] [address] [facility] [address]
--- OUTSIDE RECORDS SUMMARY | 2023-06-06 15:12 | External Medical Summary ---
Author Name Unknown Address Unknown Organization [id number]:[facility] [place] [address] [place] [address] Laboratory Report Ordering Provider Test Date Status JORGE AREVALO 05/10/2023 12:49:50 Final Observation Date Value Abnormality Reference (Units ) Status TSH 05/10/2023 12:49:50 0.14 Below low normal 0.2 7-4.20 (uIU/mL) Final Performing Location [facility] [place] [address] [place] [address]
--- OUTSIDE RECORDS SUMMARY | 2023-06-06 15:12 | External Medical Summary | Summary of Care ---
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); Screening for condition Allergies Active Allergy Reactions Severity Noted Date [...] mRNA, LNP-s, No Pre serve, 2-Dose Series (Foremost) 12/18/2020,11/25/2020 HEP A - Hepatitis A (Adult > 18 yrs) 11/19/2018, 04/29/2010 Hepatitis B, 20+ yrs 11/19/2018 Pneumococcal Conjugate Vacci ne, 20-valent ([id number]) 11/27/2022 SEASONAL INFLUENZA, PF, 6 M & [...] Visit Orthopedics Cathy Wesley MD [address] [place] [address] 07/16/2023 Office Visit Ophthalmology Hilario Rivera, [address] [place] [address] 08/23/2023 Office Visit Gastroenterology Cira [place] CRNP [address] [place] [address] 05/13/2024 Office Visit Family Medicine Jules Coronado MD [address] [facility] [place] [address] Pending Results Name Type Priority Associated Diagnoses Date /Time TSH WITH FREE T4 IF INDICATED Lab Routine Hypothyroidism due to acquired atrophy of thyroid 05/10/2023 12:49 PM EDT COMPREHENSIVE METABOLIC PANEL Lab Routine 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) 05/10/2023 12:49 PM EDT LIPID PANEL WITH DIRECT LDL IF TG IS HIGH Lab Routine Screening for condition 05/10/2023 12:49 PM EDT Health Maintenance Due Date Last Done Comments Cologuard 2001 Fecal Occult Blood Test 2001 Sigmoidoscopy 2001 Zoster Vaccines (3 of 3) 09/22/2019 07/28/2019, 09/2016 COVID-19 Vaccine ( - 2022- season) 2023 12/18/2020, 11/25/2020 Depression [...] Diagnosis 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 Care Teams Systems Technician Relationship Specialty Start Date End Date Jules Coronado MD [address] [place] [address] PCP - General Family Medicine 12/08/20 documented as of this encounter
== END 2023-06-02 17:00 | disposition home or self-care (01) | DRG 871 ==
LOC: ED 01:15 → EDINP 06:20 → 2N 09:21

== ENCOUNTER 2025-02-02 01:09 | Observation (INO) ==
[2025-02-02] MEDS: ONDANSETRON INJ 2 MG/ML 2 ML VIAL IV STA (01:46)
[2025-02-02] MEDS: SODIUM CHLORIDE 0.9% 500 ML IV ONE (01:49)
[2025-02-02 01:53] LABS: Hematocrit (blood only) 46.7 % (42.0-52.0); Hemoglobin 15.3 g/dl (14.0-18.0); Immature Granulocytes # (auto) 0.04 K/uL (0.01-0.20); Immature Granulocytes % (auto) 0.5 %; Mean Corpuscular Hemoglobin 29.8 pg (25.0-34.0); Mean Corpuscular Volume 91.0 fL (80.0-100.0); Platelet Count 198 K/uL (130-400); RDW Standard Deviation 47.7 fL (36.4-46.3); Red Blood Count 5.13 M/uL (4.70-6.10); White Blood Count 8.30 K/ul (4.8-10.8)
[2025-02-02] MEDS: OPTIRAY 320 125ml IV ONE ×2 (02:01→02:41)
[2025-02-02 02:09] LABS: Anion Gap 9 (3-11); Bilirubin,Total 0.5 mg/dl (0.2-1.0); Calcium 9.5 mg/dl (8.6-10.3); Carbon Dioxide 26 mmol/L (21-32); Chloride 102 mmol/L (98-107); Potassium 3.8 mmol/L (3.5-5.1); Sodium 137 mmol/L (136-145)
--- NOTE | 2025-02-02 02:10 | Emergency Department Note ---
Impression & Plan Hypoxia, Bradycardia, Weakness Admit to the [facility] ED Provider Note NAME: PAULO FLANNERY AGE: 69 SEX: Male INFORMANT: Patient And his son ED PROVIDER(S): Jennifer Wolfe DO CHIEF COMPLAINT: crampy abdominal pain and weakness PLAN: Disposition: Admit to the [facility] MEDICAL DECISION MAKING: This is a 69-year-old patient who was sitting on the side of his bed when he became very suddenly weak, lightheaded and diaphoretic. He had associated crampy abdominal pain. Patient had a sudden onset of diarrhea and nausea. Patient's son explains that he became significantly diaphoretic and pale. EMS was called and he was transported here. Upon presentation to the ER, the patient was bradycardic with rates in the 40s and 50s. A code cart was brought to the bedside. The patient felt extremely weak and lethargic. He denies ever having episodes like this in the past. I did review medical records from October 06 and October 26 of this year and his heart rate ranged from 64-85 so this was felt to be unusual for him. The patient denies any new medications or supplements. Patient's blood pressure remained stable but he became significantly hypoxic with O2 saturation dropping into the low 80s on room air. He was placed on supplemental oxygen. Patient went for CTA of the chest to rule out PE. He went for CT of the brain and abdomen/pelvis. These were all unremarkable. Other laboratory studies revealed no leukocytosis or anemia. Glucose was slightly elevated at 151. Urinalysis was unremarkable. Troponin was negative. After some time here in the emergency department, overall the patient began to feel somewhat better. His heart rate did seem to elevate into the high 60s I [facility] the [facility] and they will evaluate for further inpatient care. Care/management discussed with: The patient's son who is at the bedside, games manager, the [facility] Triage Nursing notes: reviewed and agree With them. Vital Signs: reviewed and remarkable for bradycardia at a rate of 53 Additional History obtained from: patient's son is at the bedside Chronic Medical/Social Conditions affecting care: patient underwent cataract surgery 4 days ago and has not had any of his regular medications Differential Diagnosis: cardiac ischemia, aortic dissection, viral gastroenteritis, ischemic bowel, cardiac dysrhythmia, CVA, TIA, PE Diagnostics, independently interpreted by me: ECG: sinus bradycardia with first-degree AV block at a rate of 53. There is no ST segment elevation or signs of ischemia. There is no ectopy. Cardiac Monitoring: Sinus bradycardia at a rate of 54 Imaging studies: CT scan of the abdomen/pelvis:As per [facility] CTA of the chest: As per [facility] CT of the brain: As per [facility] HPI: 69 year old Male arrives for evaluation of lightheadedness, weakness, diarrhea and abdominal cramping. Patient was in his usual state of health throughout the day when he was preparing to go to bed sitting on the side of his bed and he became very weak and lightheaded. He developed nausea, abdominal cramping and diaphoresis. The patient had an episode of diarrhea and then overwhelming weakness. Family called EMS to the home. PAST MEDICAL HISTORY: See Below, PAST SURGICAL HISTORY: See Below, SOCIAL HISTORY: See Below, HOME MEDICATIONS: See list ALLERGIES: None VITALS: See Below PHYSICAL EXAMINATION: HEENT: Head - normocephalic and atraumatic. Pupils are equal, round, and reactive to light. Extraocular eye muscles are intact and sclera are anicteric. Nose - moist nasal mucosa without discharge. Mouth - moist buccal mucosa. Oropharynx is nonerythematous and there is no tonsillar exudate or edema noted. Neck: Supple; no JVD, nuchal rigidity, cervical lymphadenopathy, or auscultated bruits. Heart: Bradycardic rate and regular rhythm. There is a normal S1 and S2 with no murmurs, clicks, or gallops appreciated. Lungs: Clear to auscultation bilaterally with no wheezes, rales, or rhonchi. Abdomen: Soft, completely nontender, nondistended, with good bowel sounds. There are no palpable pulsatile masses or hepatosplenomegaly. There is no guarding, rigidity, or rebound noted. Extremities: No evidence of cyanosis, clubbing, or edema. There are easily palpable peripheral pulses. Neuro:The patient is awake and alert, oriented to day, time, and place. Muscle strength is 5/5 in all 4 extremities. The patient has equal head swamper strength and equal pedal push and pull. There are no cerebellar signs. Emergency Department course: The patient was evaluated in room C-1. A complete history and physical was performed. A twelve-lead EKG was obtained as described above. An order was placed for continuous cardiac monitoring. The patient was in a sinus bradycardia at a rate of 54. A portable chest x-ray was performed and was felt to be unremarkable. BSG was obtained and was normal. Patient had a very sudden drop in his O2 saturation on room air into the low 80s. He was placed on supplemental oxygen. He went for CT scan of his chest to rule out PE along with a CT of the abdomen/pelvis because of his crampy abdominal pain and a CT scan of his brain. Patient was monitored very closely on the heart monitor because his heart rate was dropping into the 40s at times but remained sinus. I [facility] the [facility] and they will evaluate for further inpatient care. Patient had no further diarrhea or crampy abdominal pain while here in the emergency department. His lethargy/fatigue/weakness seem to improve throughout the stay I have personally spent greater than 50 minutes of critical care time in the direct management of this patient. This includes bedside care, interpretation of diagnostic studies, and testing, discussion with consultants, patient, and family members, and other required patient management activities. This 50 minutes is in excess of all separately billable procedures. Past Med/Surg History Problem List (Updated 02/02/25 @ 20:58 by Jennifer Wolfe DO) Weakness (Acute) Bradycardia (Acute) Hypoxia (Acute) Bradycardia Near syncope Encounter for pre-operative examination Acute hypoxemic respiratory failure COVID-19 (Acute) Thyroid condition Colitis Sinusitis (Acute) Medical History Ulcerative colitis no meds Hypothyroidism per pt no longer taking medication History of subdural hematoma (08/2017) Temporomandibular joint disorder "only happens if yawning or eating a big sandwich"--no device Hearing deficit Hypomagnesemia Surgical History History of craniotomy (08/2017) evacuation [place] [facility] [place] History of arthroscopy of left knee meniscus repair History of colonoscopy History of tooth extraction Family History Other No family history of adverse response to anesthesia No pertinent family history in first degree relatives Social History Smoking Status: Never smoker Second Hand Exposure: No; Do You Dip or Chew Tobacco: No; Hx Alcohol Use: No Hx Substance Use: No Preferred Language: [place] Communication Ability: Effective [employer] Sawyer Required: No Beliefs That Will Affect Care: None Current Living Situation: Alone Feels Safe at Home: Yes Assistive Devices: None Allergies Allergies Allergy/AdvReac Type Severity Reaction Status Date / Time No Known Allergies Allergy Verified 01/28/25 11:18 Home Meds Home Medications Medication Instructions Recorded Confirmed atorvastatin 20 mg tablet 20 mg PO DAILY 02/02/25 02/02/25 betamethasone dipropionate 0.05 % 1 applic topical BID PRN Leg Rash 02/02/25 02/02/25 topical cream ibuprofen 800 mg tablet 800 mg PO Q8H PRN Pain 02/02/25 02/02/25 levothyroxine 125 mcg tablet 125 mcg PO DAILY 02/02/25 02/02/25 mesalamine 1.2 gram tablet,delayed 1.2 g PO BID 02/02/25 02/02/25 release valacyclovir 1 gram tablet 0 mg PO BID PRN Cold Sores 02/02/25 02/02/25 Results & Data (ED) Vital Signs Vital Signs - 24 hr 02/02/25 01:13 02/02/25 01:26 02/02/25 01:29 Temperature 36.3 C L Temperature Source Temporal Artery Scan Pulse Rate 54 L 52 L Pulse Rate [Finger] 53 L Pulse Rhythm [Finger] Regular Pulse Strength [Finger] Normal Respiratory Rate 16 20 Respiratory Effort / Characteristics Non-Labored Spontaneous Respiratory Depth Normal Respiratory Pattern Regular Blood Pressure 145/87 H Blood Pressure [Left Arm] Blood Pressure [Right Arm] 139/94 Blood Pressure Mean 106 Blood Pressure Mean [Left Arm] Blood Pressure Mean [Right Arm] 109 Blood Pressure Position [Right Arm] Lying Pulse Oximetry 96 97 Oxygen Delivery Method Room Air Room Air Oxygen Flow Rate Sepsis Recent Fever Within 48 Hours No Sepsis New/Unexplained Change in Mental Status No Sepsis Action Taken by Nursing No Action Required Oxygen Flow Rate - Titration Pulse Oximetry Post Tiitration 02/02/25 01:31 02/02/25 01:42 02/02/25 02:15 Temperature Temperature Source Pulse Rate Pulse Rate [Finger] Pulse Rhythm [Finger] Pulse Strength [Finger] Respiratory Rate Respiratory Effort / Characteristics Respiratory Depth Respiratory Pattern Blood Pressure Blood Pressure [Left Arm] 155/98 H Blood Pressure [Right Arm] Blood Pressure Mean Blood Pressure Mean [Left Arm] 117 Blood Pressure Mean [Right Arm] Blood Pressure Position [Right Arm] Pulse Oximetry 97 88 L Oxygen Delivery Method Room Air Room Air Nasal Cannula Oxygen Flow Rate Sepsis Recent Fever Within 48 Hours Sepsis New/Unexplained Change in Mental Status Sepsis Action Taken by Nursing Oxygen Flow Rate - Titration 4 Pulse Oximetry Post Tiitration 100 02/02/25 03:07 02/02/25 03:09 02/02/25 05:00 Temperature Temperature Source Pulse Rate Pulse Rate [Finger] 54 L 57 L Pulse Rhythm [Finger] Regular Regular Pulse Strength [Finger] Normal Normal Respiratory Rate 17 18 Respiratory Effort / Characteristics Non-Labored Non-Labored Respiratory Depth Normal Normal Respiratory Pattern Regular Regular Blood Pressure Blood Pressure [Left Arm] Blood Pressure [Right Arm] 115/77 110/81 Blood Pressure Mean Blood Pressure Mean [Left Arm] Blood Pressure Mean [Right Arm] 89 90 Blood Pressure Position [Right Arm] Sitting Lying Pulse Oximetry 100 98 98 Oxygen Delivery Method Nasal Cannula Nasal Cannula Nasal Cannula Oxygen Flow Rate 4 2 2 Sepsis Recent Fever Within 48 Hours Sepsis New/Unexplained Change in Mental Status Sepsis Action Taken by Nursing Oxygen Flow Rate - Titration 2 Pulse Oximetry Post Tiitration 99 Laboratory Data 02/02/25 08:40 02/02/25 08:40 Lab Results 02/02/25 02/02/25 02/02/25 Range/Units 01:30 01:30 01:35 WBC 8.30 (4.8-10.8) K/ul RBC 5.13 (4.70-6.10) M/uL Hgb 15.3 (14.0-18.0) g/dl POC Hgb 16.3 (14.0-18.0) g/dl Hct 46.7 (42.0-52.0) % POC Hct 48 (42-52) % MCV 91.0 (80.0-100.0) fL MCH 29.8 (25.0-34.0) pg MCHC 32.8 (32.0-36.0) g/dL RDW Std Deviation 47.7 H (36.4-46.3) fL RDW Coeff of [place] 14.3 (11.5-14.5) % Plt Count 198 (130-400) K/uL MPV 9.9 (9.4-12.4) fL Immature Gran % (Auto) 0.5 % Neut % (Auto) 71.8 % Lymph % (Auto) 18.7 % [place] % (Auto) 6.7 % Eos % (Auto) 1.6 % Baso % (Auto) 0.7 % Neut # (Auto) 5.96 (1.40-6.50) K/uL Lymph # (Auto) 1.55 (1.20-3.40) K/uL [place] # (Auto) 0.56 (0.11-0.59) K/uL Eos # (Auto) 0.13 (0.00-0.50) K/uL Baso # (Auto) 0.06 (0.00-0.20) K/uL Immature Gran # (Auto) 0.04 (0.01-0.20) K/uL POC Sodium 139 (135-144) mmol/L Sodium 137 (136-145) mmol/L POC Potassium 3.8 (3.3-5.0) mmol/L Potassium 3.8 (3.5-5.1) mmol/L POC Chloride 101 (101-112) mmol/L Chloride 102 (98-107) mmol/L Carbon Dioxide 26 (21-32) mmol/L POC Total CO2 26 (24-31) mmol/L Anion Gap 9 (3-11) POC Anion Gap 16.0 (16-25) mmol/L POC BUN 15 (7-18) mg/dl BUN 15 (6-23) mg/dl Creatinine 1.11 (0.6-1.4) mg/dl POC Creatinine 1.1 (0.6-1.3) mg/dl Est Cr Clr Drug Dosing Not Reportable eGFR 72.33 BUN/Creatinine Ratio 13.5 (10-20) Glucose 151 H (70-99(Fasting)) mg/dl POC Glucose (other) 156 H (70-99) mg/dl Calcium 9.5 (8.6-10.3) mg/dl POC Ioniz Calcium Oma 1.15 (1.12-1.32) mmol/l Total Bilirubin 0.5 (0.2-1.0) mg/dl AST 22 (13-39) U/L ALT 15 (7-52) U/L Alkaline Phosphatase 89 (34-104) U/L Troponin I High Sens < 2.3 (0-20) pg/ml Total Protein 7.7 (6.0-8.3) gm/dl Albumin 4.4 (3.4-5.0) gm/dl Globulin 3.3 (2.5-4.0) gm/dl Albumin/Globulin Ratio 1.3 (0.9-2) Lipase 25 (11-82) U/L TSH Cancelled 78.165 H Free T4 < 0.32 L (0.61-1.60) ng/dl Urine Color Urine Appearance (Clear) Urine pH (4.5-7.5) Ur Specific [place] (1.000-1.030) Urine Protein (Negative) Urine Glucose (UA) (Negative) Urine Ketones (Negative) Urine Blood (Negative) Urine Nitrite (Negative) Urine Bilirubin (Negative) Urine Urobilinogen (Negative) Ur Leukocyte Esterase (Negative) Urine Comment 02/02/25 Range/Units 02:46 WBC (4.8-10.8) K/ul RBC (4.70-6.10) M/uL Hgb (14.0-18.0) g/dl POC Hgb (14.0-18.0) g/dl Hct (42.0-52.0) % POC Hct (42-52) % MCV (80.0-100.0) fL MCH (25.0-34.0) pg MCHC (32.0-36.0) g/dL RDW Std Deviation (36.4-46.3) fL RDW Coeff of [place] (11.5-14.5) % Plt Count (130-400) K/uL MPV (9.4-12.4) fL Immature Gran % (Auto) % Neut % (Auto) % Lymph % (Auto) % [place] % (Auto) % Eos % (Auto) % Baso % (Auto) % Neut # (Auto) (1.40-6.50) K/uL Lymph # (Auto) (1.20-3.40) K/uL [place] # (Auto) (0.11-0.59) K/uL Eos # (Auto) (0.00-0.50) K/uL Baso # (Auto) (0.00-0.20) K/uL Immature Gran # (Auto) (0.01-0.20) K/uL POC Sodium (135-144) mmol/L Sodium (136-145) mmol/L POC Potassium (3.3-5.0) mmol/L Potassium (3.5-5.1) mmol/L POC Chloride (101-112) mmol/L Chloride (98-107) mmol/L Carbon Dioxide (21-32) mmol/L POC Total CO2 (24-31) mmol/L Anion Gap (3-11) POC Anion Gap (16-25) mmol/L POC BUN (7-18) mg/dl BUN (6-23) mg/dl Creatinine (0.6-1.4) mg/dl POC Creatinine (0.6-1.3) mg/dl Est Cr Clr Drug Dosing eGFR BUN/Creatinine Ratio (10-20) Glucose (70-99(Fasting)) mg/dl POC Glucose (other) (70-99) mg/dl Calcium (8.6-10.3) mg/dl POC Ioniz Calcium [place]ma (1.12-1.32) mmol/l Total Bilirubin (0.2-1.0) mg/dl AST (13-39) U/L ALT (7-52) U/L Alkaline Phosphatase (34-104) U/L Troponin I High Sens (0-20) pg/ml Total Protein (6.0-8.3) gm/dl Albumin (3.4-5.0) gm/dl Globulin (2.5-4.0) gm/dl Albumin/Globulin Ratio (0.9-2) Lipase (11-82) U/L TSH Free T4 (0.61-1.60) ng/dl Urine Color Yellow Urine Appearance Clear (Clear) Urine pH 7.0 (4.5-7.5) Ur Specific [place] 1.037 H (1.000-1.030) Urine Protein Negative (Negative) Urine Glucose (UA) Negative (Negative) Urine Ketones Negative (Negative) Urine Blood Negative (Negative) Urine Nitrite Negative (Negative) Urine Bilirubin Negative (Negative) Urine Urobilinogen Negative (Negative) Ur Leukocyte Esterase Negative (Negative) Urine Comment Administered Medications Atorvastatin Calcium (Atorvastatin 20 Mg Tab) 20 mg PO DAILY ARLET Stop: 03/04/25 08:59 Last Admin: 02/02/25 10:07 Dose: 20 mg Documented By: ERIC Levothyroxine Sodium (Levothyroxine Sodium 125 Mcg Tablet) 125 mcg PO DAILYBB [facility] Stop: 03/04/25 08:44 Last Admin: 02/02/25 10:07 Dose: 125 mcg Documented By: ERIC Pt Own Med - Prednisolone/Moxi/Bromfenac Eye Drop 1 each OPL QID ARLET Stop: 02/04/25 23:59 Last Admin: 02/02/25 17:33 Dose: 1 drops Documented By: HARLEY Discontinued Medications Sodium Chloride (Nss) 500 mls @ 999 mls/hr IV .Q31M ONE Stop: 02/02/25 02:17 Last Infusion: 02/02/25 03:12 Dose: Infused Documented By: Admin: 02/02/25 01:49 Dose: 999 mls/hr Documented By: DANNY Sodium Chloride (Nss) 1,000 mls @ 100 mls/hr IV .Q10H ARLET Stop: 02/03/25 04:25 Last Infusion: 02/02/25 18:20 Dose: Infused Documented By: Admin: 02/02/25 08:50 Dose: 100 mls/hr Documented By: ERIC Levothyroxine Sodium 200 mcg/ (Syringe) 10 mls @ 2 mls/min IV ONCE ONE; Protocol Stop: 02/02/25 12:21 Last Admin: 02/02/25 13:21 Dose: 2 mls/min Documented By: KAYKAY Hydrocortisone Sodium (Succinate 50 mg/ Syringe) 1 mls @ 4 mls/min IV NOW STA Stop: 02/02/25 12:17 Last Admin: 02/02/25 12:51 Dose: 4 mls/min Documented By: KAYKAY Hydrocortisone Sodium (Succinate 50 mg/ Syringe) 1 mls @ 4 mls/min IV ONCE ONE Stop: 02/02/25 19:01 Last Admin: 02/02/25 18:13 Dose: 4 mls/min Documented By: HARLEY Ioversol (Optiray 320 125ml) 118 ml IV ONCE ONE Stop: 02/02/25 02:00 Last Admin: 02/02/25 02:01 Dose: 118 ml Documented By: PEYTON Ioversol (Optiray 320 125ml) 110 ml IV ONCE ONE Stop: 02/02/25 02:42 Last Admin: 02/02/25 02:41 Dose: 110 ml Documented By: PEYTON Miscellaneous (Order Awaiting Action) 1 each N/A QS ARLET Stop: 03/04/25 08:44 Last Admin: 02/02/25 10:07 Dose: Not Given Documented By: ERIC Ondansetron HCl (Ondansetron Inj 2 Mg/Ml 2 Ml Vial) 4 mg IV NOW STA Stop: 02/02/25 01:42 Last Admin: 02/02/25 01:46 Dose: 4 mg Documented By: DANNY Discharge Plan Visit Data Chief Complaint: Abdominal Pain Stated Complaint: LIGHT HEADED, VOMIT, ABD PAIN ED Provider: Jennifer Wolfe Discharge Problem: Hypoxia, Bradycardia, Weakness Patient Disposition: Admitted As Inpatient Condition: Critical Discharge Instructions Interventions: ED Discharge Assessment Last Done: 02/02/25 08:26
[2025-02-02 02:15] LABS: Alanine Aminotransferase 15 U/L (7-52); Albumin Globulin Ratio 1.3 (0.9-2); Alkaline Phosphatase 89 U/L (34-104); Blood Urea Nitrogen 15 mg/dl (6-23); Globulin 3.3 gm/dl (2.5-4.0); Glucose 151 mg/dl (70-99(Fasting)); Lipase 25 U/L (11-82); Total Protein 7.7 gm/dl (6.0-8.3)
[2025-02-02 02:57] LABS: Appearance Urine Clear (Clear); Glucose Urine UA Negative (Negative)
--- NOTE | 2025-02-02 03:11 | XRay Report ---
EXAM: XR chest 1V portable CLINICAL HISTORY: desaturation TECHNIQUE: An X-ray image of the chest is obtained in AP projection. COMPARISON: 05/31/2023. FINDINGS: Pulmonary Parenchyma: No evidence of consolidation, collapse, or focal opacities. No pulmonary nodules are identified. No evidence of pleural effusion or pleural thickening. Heart and Mediastinum: Heart shadow is prominent. No mediastinal widening or masses. No hilar or mediastinal lymphadenopathy. Bony Thorax: Bony thorax appears intact without fractures or deformities. Soft Tissues: Soft tissues overlying the chest wall are unremarkable. IMPRESSION: No evidence of consolidation or pleural effusion. Electronically signed by Geoff Dennison 02-02-2025 03:10 AM
--- NOTE | 2025-02-02 03:11 | CT Scan Report ---
EXAM: CT angio abdomen pelvis w con CLINICAL HISTORY: sudden onset pain; bradycardia TECHNIQUE: Contrast enhanced thin slice CT angiography scan of the abdominal aorta was performed with intravenous contrast. Angiographic images were processed, 3D MIP images were acquired for interpretation. Contiguous axial images were obtained. Reformatted coronal and sagittal images were also reviewed. If IV contrast material had not been administered, the likelihood of detecting abnormalities relevant to the patients condition would have been substantially decreased. CT scan was performed according to ALARA (as low as reasonable achievable). 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 FINDINGS: Abdominal aorta is normal in course, calibre and opacification. Origin of coeliac artery, superior mesenteric artery , bilateral main renal and lumbar arteries are normal with no hemodynamically significant ostial stenosis noted. Bilateral common, external and internal iliac arteries are normal in course, caliber and opacification. The gallbladder is distended and shows a calculus of size 7 mm without cholecystitis. Diffuse submucosal fatty deposition are noted involving entire course of colon with subtle adjacent fat stranding- possibility of chronic inflammatory changes. Solid abdominal organs including liver, spleen, pancreas and bilateral kidneys reveal no significant abnormality. Bowel loops are grossly unremarkable. No evidence of ascites. IMPRESSION: Uncomplicated cholelithiasis. Diffuse submucosal fatty deposition are noted involving entire course of colon with subtle adjacent fat stranding- possibility of chronic inflammatory changes. This is mre apparent in the current study. STable bilateral fat containing inguinal hernias. No other abnormality seen. No obvious aneurysm or dissection. Electronically signed by Emir Richardson 02-02-2025 03:10 AM
--- NOTE | 2025-02-02 03:34 | CT Scan Report ---
EXAM: CT angio chest PE protocol CLINICAL HISTORY: PE TECHNIQUE: Contiguous 3.[address] angiographic images of the chest were acquired with the administration of intravenous 110 cc Optiray 320 contrast. Coronal and sagittal reconstructions were obtained. One of these 3D techniques was utilized: Maximum Intensity Projection (MIP), 3D Reconstructed Images, Volume Rendered Images, Surface Shaded Rendering. One of the following dose reduction techniques was utilized for this exam: Automated exposure control, adjustment of the mA and/or kV according to patient size, and use of iterative reconstruction. 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 FINDINGS: Pulmonary Arteries: Pulmonary arteries are normal in size and opacification. No evidence of pulmonary embolism. No stenosis or filling defects. Aorta: The thoracic aorta shows atherosclerotic changes. Mediastinum: Subcentimetric right hilar and mediastinal nodes noted. Heart: Mild to moderate cardiomegaly with reflux of contrast in IVC, representing right heart strain. No pericardial effusion. Lungs: Thin streak of minimal bilateral pleural effusion on both sides. Subpleural haziness and atelectatic changes in dependent portions of both lungs. Centrilobular and paraseptal emphysematous changes in bilateral lung barajas. There is a 6.5 mm calcified nodule in the right upper lobe. Bones: Degenerative changes in the thoracic spine. Soft Tissues: Normal appearance of the visualized soft tissues. No abnormal masses or fluid collections. Upper Abdomen: Small gallbladder calculus noted. IMPRESSION: 1. No evidence of acute pulmonary thromboembolism at present. 2. Mild to moderate cardiomegaly with reflux of contrast in IVC, representing right heart strain. Recommended clinical correlation. 3. Thin streak of minimal bilateral pleural effusion on both sides. 4. Subpleural haziness and atelectatic changes in dependent portions of both lungs. 5. 6.5 calcified nodule in the right upper lobe. 6. These findings are only seen on CT compared to CR. Electronically signed by Geoff Dennison 02-02-2025 03:33 AM
--- NOTE | 2025-02-02 03:39 | CT Scan Report ---
EXAM: CT head/brain wo con CLINICAL HISTORY: lethargic TECHNIQUE: Multiple axial images are obtained from the skull base to the vertex without contrast. CT scan was performed according to ALARA (as low as reasonable achievable). COMPARISON: None. FINDINGS: There is cerebral atrophy. No evidence of space occupying lesion, hemorrhage, edema, mass effect, midline shift, extra axial collection, or hydrocephalus is noted. Basal cisterns are symmetric and normal in size and configuration. There are scattered periventricular hypodensities as can be seen with chronic microvascular ischemic changes. The chaudhary-white matter differentiation is preserved. Visualized paranasal sinuses and mastoid air cells are well aerated. Orbital contents are within normal limits. Bony structures are intact. IMPRESSION: 1. No evidence of acute intracranial abnormality is demonstrated. 2. Chronic microvascular ischemic changes. 3. Cerebral atrophy. MRI brain for better evalution if clinically indicated. Electronically signed by Emir Richardson 02-02-2025 03:38 AM
[2025-02-02 04:40] LABS: Thyroid Stimulating Hormone 78.165 uIu/ml (0.300-4.500)
--- NOTE | 2025-02-02 05:31 | History & Physical Report ---
Date of Service February 02, 2025 Assessment & Plan (1) Near syncope: Plan: 69-year-old male with past med history significant for hypothyroidism, hyperlipidemia, pulmonary granuloma, incidental lung nodule, history of acute respiratory failure unspecified hypoxia or hypercapnia, atherosclerosis of aorta, CAD, rectosigmoid ulcerative colitis, hepatic steatosis, calculus of gallbladder without cholecystitis, degenerative disc disease, history of subdural hematoma who lives with his son and ambulates without support was brought in because of near syncope. Around midnight patient suddenly became diaphoretic was having nausea, vomited couple of times. Was having abdominal discomfort. [place] dizzy and felt like passing out and then had an episode of diarrhea. Reportedly vomited couple of times and had a one episode diarrhea. No blood in the stools. No blood in the vomitus. EMS was called and brought to the hospital. In the ER initially was lethargic. Bradycardic with heart rate in 40s and 50s. Imaging studies showed possible right heart strain. No PE. CT head is okay. Later patient became more awake.. Currently alert and oriented. Says he is feeling better. His heart rates in the 60s currently. Hemodynamically stable. Currently denies any headache. Denies any chest pain. Denies any shortness of breath. No runny nose or sore throat. No cough. No fevers. Before as all this happened he was doing fine. Son is in the room.Patient states he stopped taking all his medication 1 month ago. [place] like not taking. About five days ago he had cataract surgery. Near syncope Patient felt diaphoretic, abdominal discomfort, dizziness, vomited couple of times and an episode of diarrhea Was bradycardic in the ER Currently doing okay CTA chest no PE but showing right heart strain CT head is okay Troponin negative Will monitor on telemetry Will follow Serial cardiac enzymes and echo Consult cardiology in a.m. for further recommendations Nausea vomiting and diarrhea Will check stool studies Patient has history of ulcerative colitis CAT scan showing chronic inflammation Hypothyroidism TSH 78 and free T4 is less than 0.3 At home on levothyroxine 125 mcg daily Seems not taking his medications for last about a month Seems noncompliant Will continue his home dose for now Can discuss with endocrinology in a.m. Close follow-up of TSH Hyperlipidemia On statin History of ulcerative colitis On mesalamine DVT prophylaxis SCDs Disposition Telemetry Full code. History of Present Illness Chief Complaint: Nausea, vomiting, diarrhea and near syncope Primary Care Provider: Jules Coronado MD 69-year-old male with past med history significant for hypothyroidism, hype rlipidemia, pulmonary granuloma, incidental lung nodule, history of acute respiratory failure unspecified hypoxia or hypercapnia, atherosclerosis of aorta, CAD, rectosigmoid ulcerative colitis, hepatic steatosis, calculus of gallbladder without cholecystitis, degenerative disc disease, history of subdural hematoma who lives with his son and ambulates without support was brought in because of near syncope. Around midnight patient suddenly became diaphoretic was having nausea, vomited couple of times. Was having abdominal discomfort. [place] dizzy and felt like passing out and then had an episode of diarrhea. Reportedly vomited couple of times and had a one episode diarrhea. No blood in the stools. No blood in the vomitus. EMS was called and brought to the hospital. In the ER initially was lethargic. Bradycardic with heart rate in 40s and 50s. Imaging studies showed possible right heart strain. No PE. CT head is okay. Later patient became more awake.. Currently alert and oriented. Says he is feeling better. His heart rates in the 60s currently. Hemodynamically stable. Currently denies any headache. Denies any chest pain. Denies any shortness of breath. No runny nose or sore throat. No cough. No fevers. Before as all this happened he was doing fine. Son is in the room.Patient states he stopped taking all his medication 1 month ago. [place] like not taking. About five days ago he had cataract surgery. Past medical history. As mentioned above Past surgical history. Colonoscopy. Colonoscopy with biopsy. Left knee arthroscopy. Left craniotomy for removal of hematoma. Bur hole drainage of subdural hematoma. Vasectomy Social history. No smoking. No alcohol use. No drug use. Family history. Father had pancreatic cancer. Father alcoholism. Mother had leukemia. Half brother had diabetes. Paternal grandmother alcoholic. Allergies Allergy/AdvReac Type Severity Reaction Status Date / Time No Known Allergies Allergy Verified 01/28/25 11:18 Home Medications Medication Instructions Recorded Confirmed Type atorvastatin 20 mg tablet 20 mg PO DAILY 02/02/25 02/02/25 History betamethasone dipropionate 0.05 % 1 applic topical BID PRN Leg Rash 02/02/25 02/02/25 History topical cream ibuprofen 800 mg tablet 800 mg PO Q8H PRN Pain 02/02/25 02/02/25 History levothyroxine 125 mcg tablet 125 mcg PO DAILY 02/02/25 02/02/25 History mesalamine 1.2 gram tablet,delayed 1.2 g PO BID 02/02/25 02/02/25 History release valacyclovir 1 gram tablet PO BID PRN Cold Sores 02/02/25 History Past Med/Surg History Problem List (Updated 02/02/25 @ 05:38 by Chandler Holliday MD) Near syncope Encounter for pre-operative examination Acute hypoxemic respiratory failure COVID-19 (Acute) Thyroid condition Colitis Sinusitis (Acute) Medical History Ulcerative colitis no meds Hypothyroidism per pt no longer taking medication History of subdural hematoma (08/2017) Temporomandibular joint disorder "only happens if yawning or eating a big sandwich"--no device Hearing deficit Hypomagnesemia Surgical History History of craniotomy (08/2017) [place] [facility] [place] [facility] [place] History of arthroscopy of left knee meniscus repair History of colonoscopy History of tooth extraction Family History Other No family history of adverse response to anesthesia No pertinent family history in first degree relatives Social History Smoking Status: Never smoker Second Hand Exposure: No; Do You Dip or Chew Tobacco: No; Hx Alcohol Use: No Hx Substance Use: No Preferred Language: Latvian Communication Ability: Effective Roll Examiner Required: No Beliefs That Will Affect Care: None Current Living Situation: Alone Feels Safe at Home: Yes Assistive Devices: Denture - Upper and Denture - Lower Review of Systems Review of Systems: All systems reviewed & are unremarkable except as noted in HPI & below Physical Exam Physical Exam: General- Not in distress Head- atraumatic Eyes- PERRL. ENT- oropharynx clear Neck- supple, no JVD. Lungs- clear to auscultation no wheezing or crackles Heart- regular rate and rhythm; no murmur, no gallop. Abdomen- normal bowel sounds, soft, nontender, no distension. Extremities- no pretibial edema, no erythema seen. Neuro- alert, oriented PERRL, no facial palsy; no dysarthria; moves extremities Results & Data Results & Data Vital Signs (Past 12 Hours) Vital Signs Temp Pulse Pulse Resp BP BP BP 02/02/25 03:09 54 L 17 115/77 02/02/25 03:07 02/02/25 02:15 02/02/25 01:42 02/02/25 01:31 155/98 H 02/02/25 01:29 53 L 20 139/94 02/02/25 01:26 52 L 02/02/25 01:13 36.3 C L 54 L 16 145/87 H Pulse Ox O2 Del Method O2 Flow Rate 02/02/25 03:09 98 Nasal Cannula 2 02/02/25 03:07 100 Nasal Cannula 4 02/02/25 02:15 88 L Room Air, Nasal Cannula 02/02/25 01:42 97 Room Air 02/02/25 01:31 02/02/25 01:29 97 Room Air 02/02/25 01:26 02/02/25 01:13 96 Room Air Diagnostic Findings Laboratory Results WBC 8.30 K/ul (4.8-10.8) 02/02/25 01:30 RBC 5.13 M/uL (4.70-6.10) 02/02/25 01:30 Hgb 15.3 g/dl (14.0-18.0) 02/02/25 01:30 POC Hgb 16.3 g/dl (14.0-18.0) 02/02/25 01:35 Hct 46.7 % (42.0-52.0) 02/02/25 01:30 POC Hct 48 % (42-52) 02/02/25 01:35 MCV 91.0 fL (80.0-100.0) 02/02/25 01:30 MCH 29.8 pg (25.0-34.0) 02/02/25 01:30 MCHC 32.8 g/dL (32.0-36.0) 02/02/25 01:30 RDW Std Deviation 47.7 fL (36.4-46.3) H 02/02/25 01:30 RDW Coeff of [place] 14.3 % (11.5-14.5) 02/02/25 01:30 Plt Count 198 K/uL (130-400) 02/02/25 01:30 MPV 9.9 fL (9.4-12.4) 02/02/25 01:30 Immature Gran % (Auto) 0.5 % 02/02/25 01:30 Neut % (Auto) 71.8 % 02/02/25 01:30 Lymph % (Auto) 18.7 % 02/02/25 01:30 [place] % (Auto) 6.7 % 02/02/25 01:30 Eos % (Auto) 1.6 % 02/02/25 01:30 Baso % (Auto) 0.7 % 02/02/25 01:30 Neut # (Auto) 5.96 K/uL (1.40-6.50) 02/02/25 01:30 Lymph # (Auto) 1.55 K/uL (1.20-3.40) 02/02/25 01:30 [place] # (Auto) 0.56 K/uL (0.11-0.59) 02/02/25 01:30 Eos # (Auto) 0.13 K/uL (0.00-0.50) 02/02/25 01:30 Baso # (Auto) 0.06 K/uL (0.00-0.20) 02/02/25 01:30 Immature Gran # (Auto) 0.04 K/uL (0.01-0.20) 02/02/25 01:30 POC Sodium 139 mmol/L (135-144) 02/02/25 01:35 Sodium 137 mmol/L (136-145) 02/02/25 01:30 POC Potassium 3.8 mmol/L (3.3-5.0) 02/02/25 01:35 Potassium 3.8 mmol/L (3.5-5.1) 02/02/25 01:30 POC Chloride 101 mmol/L (101-112) 02/02/25 01:35 Chloride 102 mmol/L (98-107) 02/02/25 01:30 Carbon Dioxide 26 mmol/L (21-32) 02/02/25 01:30 POC Total CO2 26 mmol/L (24-31) 02/02/25 01:35 Anion Gap 9 (3-11) 02/02/25 01:30 POC Anion Gap 16.0 mmol/L (16-25) 02/02/25 01:35 POC BUN 15 mg/dl (7-18) 02/02/25 01:35 BUN 15 mg/dl (6-23) 02/02/25 01:30 Creatinine 1.11 mg/dl (0.6-1.4) 02/02/25 01:30 POC Creatinine 1.1 mg/dl (0.6-1.3) 02/02/25 01:35 Est Cr Clr Drug Dosing Not Reportable 02/02/25 01:30 eGFR 72.33 02/02/25 01:30 BUN/Creatinine Ratio 13.5 (10-20) 02/02/25 01:30 Glucose 151 mg/dl (70-99(Fasting)) H 02/02/25 01:30 POC Glucose (other) 156 mg/dl (70-99) H 02/02/25 01:35 Calcium 9.5 mg/dl (8.6-10.3) 02/02/25 01:30 POC Ioniz Calcium [place] 1.15 mmol/l (1.12-1.32) 02/02/25 01:35 Total Bilirubin 0.5 mg/dl (0.2-1.0) 02/02/25 01:30 AST 22 U/L (13-39) 02/02/25 01:30 ALT 15 U/L (7-52) 02/02/25 01:30 Alkaline Phosphatase 89 U/L (34-104) 02/02/25 01:30 Troponin I High Sens < 2.3 pg/ml (0-20) 02/02/25 01:30 Total Protein 7.7 gm/dl (6.0-8.3) 02/02/25 01:30 Albumin 4.4 gm/dl (3.4-5.0) 02/02/25 01:30 Globulin 3.3 gm/dl (2.5-4.0) 02/02/25 01:30 Albumin/Globulin Ratio 1.3 (0.9-2) 02/02/25 01:30 Lipase 25 U/L (11-82) 02/02/25 01:30 TSH 78.165 uIu/ml (0.300-4.500) H 02/02/25 01:30 TSH Cancelled 02/02/25 01:30 Free T4 < 0.32 ng/dl (0.61-1.60) L 02/02/25 01:30 Urine Color Yellow 02/02/25 02:46 Urine Appearance Clear (Clear) 02/02/25 02:46 Urine pH 7.0 (4.5-7.5) 02/02/25 02:46 Ur Specific [place] 1.037 (1.000-1.030) H 02/02/25 02:46 Urine Protein Negative (Negative) 02/02/25 02:46 Urine Glucose (UA) Negative (Negative) 02/02/25 02:46 Urine Ketones Negative (Negative) 02/02/25 02:46 Urine Blood Negative (Negative) 02/02/25 02:46 Urine Nitrite Negative (Negative) 02/02/25 02:46 Urine Bilirubin Negative (Negative) 02/02/25 02:46 Urine Urobilinogen Negative (Negative) 02/02/25 02:46 Ur Leukocyte Esterase Negative (Negative) 02/02/25 02:46 Urine Comment 02/02/25 02:46 Impressions Abdomen/Pelvis CTA 02/02/25 01:47 EXAM: CT angio abdomen pelvis w con CLINICAL HISTORY: sudden onset pain; bradycardia TECHNIQUE: Contrast enhanced thin slice CT angiography scan of the abdominal aorta was performed with intravenous contrast. Angiographic images were processed, 3D MIP images were acquired for interpretation. Contiguous axial images were obtained. Reformatted coronal and sagittal images were also reviewed. If IV contrast material had not been administered, the likelihood of detecting abnormalities relevant to the patients condition would have been substantially decreased. CT scan was performed according to ALARA (as low as reasonable achievable). COMPARISON: 05/31/2023 01:59:00 INK BLENDER. FINDINGS: Abdominal aorta is normal in course, calibre and opacification. Origin of coeliac artery, superior mesenteric artery , bilateral main renal and lumbar arteries are normal with no hemodynamically significant ostial stenosis noted. Bilateral common, external and internal iliac arteries are normal in course, caliber and opacification. The gallbladder is distended and shows a calculus of size 7 mm without cholecystitis. Diffuse submucosal fatty deposition are noted involving entire course of colon with subtle adjacent fat stranding- possibility of chronic inflammatory changes. Solid abdominal organs including liver, spleen, pancreas and bilateral kidneys reveal no significant abnormality. Bowel loops are grossly unremarkable. No evidence of ascites. IMPRESSION: Uncomplicated cholelithiasis. Diffuse submucosal fatty deposition are noted involving entire course of colon with subtle adjacent fat stranding- possibility of chronic inflammatory changes. This is mre apparent in the current study. STable bilateral fat containing inguinal hernias. No other abnormality seen. No obvious aneurysm or dissection. Electronically signed by Emir Richardson 02-02-2025 03:10 AM Chest X-Ray 02/02/25 02:14 EXAM: XR chest 1V portable CLINICAL HISTORY: desaturation TECHNIQUE: An X-ray image of the chest is obtained in AP projection. COMPARISON: 05/31/2023. FINDINGS: Pulmonary Parenchyma: No evidence of consolidation, collapse, or focal opacities. No pulmonary nodules are identified. No evidence of pleural effusion or pleural thickening. Heart and Mediastinum: Heart shadow is prominent. No mediastinal widening or masses. No hilar or mediastinal lymphadenopathy. Bony Thorax: Bony thorax appears intact without fractures or deformities. Soft Tissues: Soft tissues overlying the chest wall are unremarkable. IMPRESSION: No evidence of consolidation or pleural effusion. Electronically signed by Geoff Dennison 02-02-2025 03:10 AM Chest CTA 02/02/25 02:15 EXAM: CT angio chest PE protocol CLINICAL HISTORY: PE TECHNIQUE: Contiguous 3.[address] angiographic images of the chest were acquired with the administration of intravenous 110 cc Optiray 320 contrast. Coronal and sagittal reconstructions were obtained. One of these 3D techniques was utilized: Maximum Intensity Projection (MIP), 3D Reconstructed Images, Volume Rendered Images, Surface Shaded Rendering. One of the following dose reduction techniques was utilized for this exam: Automated exposure control, adjustment of the mA and/or kV according to patient size, and use of iterative reconstruction. COMPARISON: CR same date reviewed, 02/02/2025 01:24:00 INK BLENDER. FINDINGS: Pulmonary Arteries: Pulmonary arteries are normal in size and opacification. No evidence of pulmonary embolism. No stenosis or filling defects. Aorta: The thoracic aorta shows atherosclerotic changes. Mediastinum: Subcentimetric right hilar and mediastinal nodes noted. Heart: Mild to moderate cardiomegaly with reflux of contrast in IVC, representing right heart strain. No pericardial effusion. Lungs: Thin streak of minimal bilateral pleural effusion on both sides. Subpleural haziness and atelectatic changes in dependent portions of both lungs. Centrilobular and paraseptal emphysematous changes in bilateral lung barajas. There is a 6.5 mm calcified nodule in the right upper lobe. Bones: Degenerative changes in the thoracic spine. Soft Tissues: Normal appearance of the visualized soft tissues. No abnormal masses or fluid collections. Upper Abdomen: Small gallbladder calculus noted. IMPRESSION: 1. No evidence of acute pulmonary thromboembolism at present. 2. Mild to moderate cardiomegaly with reflux of contrast in IVC, representing right heart strain. Recommended clinical correlation. 3. Thin streak of minimal bilateral pleural effusion on both sides. 4. Subpleural haziness and atelectatic changes in dependent portions of both lungs. 5. 6.5 calcified nodule in the right upper lobe. 6. These findings are only seen on CT compared to CR. Electronically signed by Geoff Dennison 02-02-2025 03:[address] 02/02/25 02:15 EXAM: CT head/brain wo con CLINICAL HISTORY: lethargic TECHNIQUE: Multiple axial images are obtained from the skull base to the vertex without contrast. CT scan was performed according to ALARA (as low as reasonable achievable). COMPARISON: None. FINDINGS: There is cerebral atrophy. No evidence of space occupying lesion, hemorrhage, edema, mass effect, midline shift, extra axial collection, or hydrocephalus is noted. Basal cisterns are symmetric and normal in size and configuration. There are scattered periventricular hypodensities as can be seen with chronic microvascular ischemic changes. The chaudhary-white matter differentiation is preserved. Visualized paranasal sinuses and mastoid air cells are well aerated. Orbital contents are within normal limits. Bony structures are intact. IMPRESSION: 1. No evidence of acute intracranial abnormality is demonstrated. 2. Chronic microvascular ischemic changes. 3. Cerebral atrophy. MRI brain for better evalution if clinically indicated. Electronically signed by Emir Richardson 02-02-2025 03:38 AM ECG Additional Comments: ECG. Sinus bradycardia with first-degree AV block rate of 53. QTc 420. Code Status & VTE Plan VTE Prophylaxis Plan VTE Prophylaxis will be ordered: Yes
[2025-02-02] MEDS ORDERED: ACETAMINOPHEN 325 MG TAB PO PRN (08:26)
[2025-02-02] MEDS ORDERED: NITROGLYCERIN SL 0.4 MG/TAB TAB SL PRN (08:26)
[2025-02-02] MEDS ORDERED: ONDANSETRON INJ 2 MG/ML 2 ML VIAL IV PRN (08:26)
[2025-02-02] MEDS ORDERED: TRIAMCINOLONE ACET 0.5% CR 15 GM TUBE EXT PRN (08:34)
[2025-02-02] MEDS: SODIUM CHLORIDE 0.9% 1,000 ML IV SCH (08:50)
[2025-02-02 08:52] LABS: Hematocrit (blood only) 45.1 % (42.0-52.0); Hemoglobin 14.9 g/dl (14.0-18.0); Immature Granulocytes # (auto) 0.04 K/uL (0.01-0.20); Immature Granulocytes % (auto) 0.4 %; Mean Corpuscular Hemoglobin 29.8 pg (25.0-34.0); Mean Corpuscular Volume 90.2 fL (80.0-100.0); Platelet Count 190 K/uL (130-400); RDW Standard Deviation 48.2 fL (36.4-46.3); Red Blood Count 5.00 M/uL (4.70-6.10); White Blood Count 9.88 K/ul (4.8-10.8)
--- NOTE | 2025-02-02 09:10 | Cardiology Consultation ---
Date of Consultation February 02, 2025 Assessment & Plan (1) Near syncope: (2) Bradycardia: Plan Assessment: 69 year old male presents with near syncopal symptoms with acute GI distress. EKG and telemetry show bradycardia at time of arrival. Cardiology consulted for further assessment and recommendations. Plan: 1. Near Syncope 2. Bradycardia -? vaso vagal event given acute GI distress component. -Patient was noted to be lethargic with HR in the 40's upon arrival. Review of telemetry in the 50's with no evidence of high grade heart block, no pauses or arrhythmia. -Review of labs shows a significantly elevated TSH with low Free T4, likely contributing factor for heart rates. Continued management per primary team. Patient had self-discontinued all medications. -Denies any chest pain, pressure or palpitations. Denies any prior cardiac history. -Denies any exposure or known tick bites. -No recent acute illness outside of acute GI event -Echocardiogram pending. -Continue to monitor on telemetry during course of hospitalization Case has been discussed with Dr. Horn. Further recommendations regarding plan of care as per his assessment. I spent a total of 40 minutes on the date of service in preparation, delivery, d ocumentation of the care provided to the patient excluding any time spent in the performance of separately billed services. DANA Cai [facility] Cardiology [facility] Supervising Physician Co-Signing Physician Notes Attending attestation: Case reviewed with the advanced practitioner. I have personally performed a history and physical examination on the patient. I have reviewed the advanced practitioner's documentation on the date of service referenced in note, and I agree with, and take responsibility for the plan of care. Subjective: [] Exam: [] Data: [] Summary of transthoracic echocardiogram performed 02/02/2025, and interpreted independently: There is mild concentric left ventricular hypertrophy. No regional wall motion abnormalities noted. Left ventricular systolic function is normal. Left Ventricular Ejection Fraction = 55-60%. The right ventricle is suboptimally visualized but appears to be mildly dilated in the parasternal short axis view with normal right ventricular systolic function. Aortic valve sclerosis mild, without significant aortic valvular stenosis. No significant tricuspid regurgitation was detected and therefore the right- sided heart pressures could not be estimated. Normal inferior vena cava size and collapsability with sniff indicates a normal right atrial pressure of 3 mmHg Grade I diastolic dysfunction, (abnormal relaxation pattern). -There are no prior studies available for comparison. Impression/ Plan: [] I spent a total of [] minutes coordinating, documenting, and providing care for this patient excluding time spent in the performance of separately billed services or time spent by another provider. Nathen Horn DO History of Present Illness Reason for Consultation: Near syncope; "rt heart strain on CTA chest" Requesting Physician: Alex johnstonist Attending Physician: Dewayne García MD History of Present Illness HPI: Patient is a 69 year old male with PMHx significant for Arthrosclerosis of aorta, HLD, Hypothyroidism, incidental lung nodule, hx of acute respiratory failure, prior subdural hematoma s/p evacuation at [facility] 2017, ulcerative colitis, and hepatic steatosis presented to the ER due to acute concerns of nausea, vomiting, diarrhea with a near syncopal event just prior to having GI distress. Patient states that he was sitting up on the side of bed, when he suddenly felt ill, vomited x2 episodes, became lightheaded feeling as though he may pass out and then proceeded to having an episode of diarrhea. Upon arrival to the ER patient's heart rate noted to be 40-50's. Son was present with patient at time of admission reporting that patient had stopped all of his medications one months ago because "he just felt like it". Of note, recent cataract surgery. EKG shows SB, rates 50's. Chest xray negative CTA Chest: IMPRESSION: 1. No evidence of acute pulmonary thromboembolism at present. 2. Mild to moderate cardiomegaly with reflux of contrast in IVC, representing right heart strain. Recommended clinical correlation. 3. Thin streak of minimal bilateral pleural effusion on both sides. 4. Subpleural haziness and atelectatic changes in dependent portions of both lungs. 5. 6.5 calcified nodule in the right upper lobe. 6. These findings are only seen on CT compared to CR. CT Head (s/t confusion/near syncope): IMPRESSION: 1. No evidence of acute intracranial abnormality is demonstrated. 2. Chronic microvascular ischemic changes. 3. Cerebral atrophy. MRI brain for better evaluation if clinically indicated. Echocardiogram pending Review of telemetry shows SB rates 50's. No acute events noted. patient denies any chest pain, pressure, palpitations, no shortness of breath, PND, syncope, or edema. Allergies Allergy/AdvReac Type Severity Reaction Status Date / Time No Known Allergies Allergy Verified 01/28/25 11:18 Home Medications Medication Instructions Recorded Confirmed Type atorvastatin 20 mg tablet 20 mg PO DAILY 02/02/25 02/02/25 History betamethasone dipropionate 0.05 % 1 applic topical BID PRN Leg Rash 02/02/25 02/02/25 History topical cream ibuprofen 800 mg tablet 800 mg PO Q8H PRN Pain 02/02/25 02/02/25 History levothyroxine 125 mcg tablet 125 mcg PO DAILY 02/02/25 02/02/25 History mesalamine 1.2 gram tablet,delayed 1.2 g PO BID 02/02/25 02/02/25 History release valacyclovir 1 gram tablet 0 mg PO BID PRN Cold Sores 02/02/25 02/02/25 History Patient History Medical History Ulcerative colitis no meds Hypothyroidism per pt no longer taking medication History of subdural hematoma (08/2017) Temporomandibular joint disorder "only happens if yawning or eating a big sandwich"--no device Hearing deficit Hypomagnesemia Surgical History History of craniotomy (08/2017) evacuation of subdural hematoma @ [facility] History of arthroscopy of left knee meniscus repair History of colonoscopy History of tooth extraction Family History Other No family history of adverse response to anesthesia No pertinent family history in first degree relatives Social History Smoking Status: Never smoker Second Hand Exposure: No; Do You Dip or Chew Tobacco: No; Tobacco Cessation Education Requested by Patient: No Hx Alcohol Use: No Hx Substance Use: No Preferred Language: Swedish Communication Ability: Effective Educational Audiologist Required: No Beliefs That Will Affect Care: None Current Living Situation: Alone Other Information That Helps Us Care for You: No Feels Safe at Home: Yes Safety Concerns: Feels Safe At This Time Assistive Devices: None Review of Systems Review of Systems: All systems reviewed & are unremarkable except as noted in HPI & below Physical Exam Constitutional: well developed, well nourished and + ill appearing; no acute distress Neck: normal visual inspection and trachea midline Respiratory: normal respiratory effort; no respiratory distress Auscultation: + diminished lung sounds (bilateral bases); no crackles, no rales, no rhonchi and no wheezes Cardiovascular: Rate/Rhythm: + bradycardic Heart Sounds: normal S1 and normal S2 Vessels: dorsalis pedis pulses present; no JVD Extremities: no edema Skin: no rashes, warm and dry Psychiatric: A+Ox3, euthymic affect Results & Data Vital Signs (Past 12 Hours) Vital Signs Temp Pulse Pulse Resp BP BP BP 02/02/25 08:36 36.8 C 57 L 20 112/79 02/02/25 07:00 54 L 20 111/84 02/02/25 05:15 58 L 02/02/25 05:00 57 L 18 110/81 02/02/25 03:09 54 L 17 115/77 02/02/25 03:07 02/02/25 02:15 02/02/25 01:42 02/02/25 01:31 155/98 H 02/02/25 01:29 53 L 20 139/94 02/02/25 01:26 52 L 02/02/25 01:13 36.3 C L 54 L 16 145/87 H Pulse Ox O2 Del Method O2 Flow Rate 02/02/25 08:36 98 Room Air 02/02/25 07:00 97 Nasal Cannula 2 02/02/25 05:15 02/02/25 05:00 98 Nasal Cannula 2 02/02/25 03:09 98 Nasal Cannula 2 02/02/25 03:07 100 Nasal Cannula 4 02/02/25 02:15 88 L Room Air, Nasal Cannula 02/02/25 01:42 97 Room Air 02/02/25 01:31 02/02/25 01:29 97 Room Air 02/02/25 01:26 02/02/25 01:13 96 Room Air Laboratory Results Cardiac Enzymes 02/02/25 Range/Units 01:30 AST 22 (13-39) U/L Troponin I High Sens < 2.3 (0-20) pg/ml CBC 02/02/25 02/02/25 Range/Units 01:30 08:40 WBC 8.30 9.88 (4.8-10.8) K/ul RBC 5.13 5.00 (4.70-6.10) M/uL Hgb 15.3 14.9 (14.0-18.0) g/dl Hct 46.7 45.1 (42.0-52.0) % Plt Count 198 190 (130-400) K/uL Neut # (Auto) 5.96 8.38 H (1.40-6.50) K/uL Lymph # (Auto) 1.55 0.90 L (1.20-3.40) K/uL [place] # (Auto) 0.56 0.50 (0.11-0.59) K/uL Eos # (Auto) 0.13 0.02 (0.00-0.50) K/uL Baso # (Auto) 0.06 0.04 (0.00-0.20) K/uL Comprehensive Metabolic Panel 02/02/25 Range/Units 01:30 Sodium 137 (136-145) mmol/L Potassium 3.8 (3.5-5.1) mmol/L Chloride 102 (98-107) mmol/L Carbon Dioxide 26 (21-32) mmol/L BUN 15 (6-23) mg/dl Creatinine 1.11 (0.6-1.4) mg/dl Glucose 151 H (70-99(Fasting)) mg/dl Calcium 9.5 (8.6-10.3) mg/dl AST 22 (13-39) U/L ALT 15 (7-52) U/L Alkaline Phosphatase 89 (34-104) U/L Total Protein 7.7 (6.0-8.3) gm/dl Albumin 4.4 (3.4-5.0) gm/dl Intake and Output 02/01/25 02/02/25 02/02/25 22:59 06:59 14:59 Intake Total 500 / 500 Balance 500 / 500 Intake: IV 500 / 500 Sodium Chloride 0.9% 500 ml @ 500 / 500 999 mls/hr IV .Q31M ONE Rx#: [id number] Other: Weight 85.2 kg Weight Measurement Method Built in [facility] Patient Weight 02/03/25 06:59 Weight 85.2 kg PG Care Time/CCT Total # of Minutes Spent Total Time Spent: 40 Total Time Spent with Patient: Total time spent is greater than 50% in coordination of care (as documented) at patient's floor/unit and/or counseling patient: [place] [address] IN/OBS CONSULT LVL 5,80M Patient Type New Medical Decision Making High Complexity Diagnoses Near syncope R55 Bradycardia R00.1 Time Spent (min) 40
[2025-02-02 09:12] LABS: Anion Gap 5.0 (3-11); Blood Urea Nitrogen 13.0 mg/dl (6-23); Calcium 9.5 mg/dl (8.6-10.3); Carbon Dioxide 31.0 mmol/L (21-32); Chloride 100.0 mmol/L (98-107); Creatinine Clr Calc Pharmacy 76.0 ml/min; Glucose 118.0 mg/dl (70-99(Fasting)); Magnesium 2.1 mg/dl (1.7-2.4); Potassium 4.9 mmol/L (3.5-5.1); Sodium 136.0 mmol/L (136-145)
[2025-02-02] MEDS: ATORVASTATIN 20 MG TAB PO SCH (10:07)
[2025-02-02] MEDS: LEVOTHYROXINE SODIUM 125 MCG TABLET PO SCH (10:07)
--- NOTE | 2025-02-02 12:16 | Communication Note ---
Patient admitted for lethargy and near syncope. Patient stopped taking all medications a month ago. Labs indicated very severe hypothyroidism (from stopping home medications). Patient has symptomatic, severe hypothyroidism 2/2 stopping levothyroxine. Will check random cortisol, in meantime start hydrocortisone 50 mg IV and loading dose of levothyroxine 200mg IV. Appreciate cardiology input, suspect primary endocrine etiology. Repeat thyroid studies, AM cortisol, add on phos. Date of Service: February 02, 2025
[2025-02-02] MEDS: HYDROCORTISONE SOD 50 MG in SYRINGE 0 ML IV STA (12:51)
[2025-02-02] MEDS: LEVOTHYROXINE SODIUM 200 MCG in SYRINGE 0 ML IV ONE (13:21)
[2025-02-02] MEDS: [UNRECOGNIZED DRUG - OTHER] OPL SCH (17:33)
[2025-02-02] MEDS: MOXI OPL SCH (17:33)
[2025-02-02] MEDS: PREDNISOLONE OPL SCH (17:33)
[2025-02-02] MEDS: HYDROCORTISONE SOD 50 MG in SYRINGE 0 ML IV ONE (18:13)
--- NOTE | 2025-02-02 18:26 | Electrocardiogram Report ---
Test Reason : Blood Pressure : */* mmHG Vent. Rate : 53 BPM Atrial Rate : 53 BPM P-R Int : 242 ms QRS Dur : 92 ms QT Int : 448 ms P-R-T Axes : 57 -1 37 degrees QTcB Int : 420 ms Sinus bradycardia with 1st degree A-V block Low voltage QRS Borderline ECG When compared with ECG of 31-May-2023 01:30, [place] interval has increased Confirmed by Nj Deelon ([id number]) on 02/02/2025 6:26:01 PM Referred By: REFERRED SELF Confirmed By: Nj Deleon
[2025-02-02] MEDS: MESALAMINE 1.2 GM PO SCH (21:40)
[2025-02-03 06:41] LABS: Hematocrit (blood only) 42.6 % (42.0-52.0); Hemoglobin 14.1 g/dl (14.0-18.0); Mean Corpuscular Hemoglobin 30.1 pg (25.0-34.0); Mean Corpuscular Volume 91.0 fL (80.0-100.0); Platelet Count 203 K/uL (130-400); RDW Standard Deviation 47.9 fL (36.4-46.3); Red Blood Count 4.68 M/uL (4.70-6.10); White Blood Count 9.68 K/ul (4.8-10.8)
[2025-02-03 06:55] LABS: Creatine Kinase 103.0 U/L (30-223)
[2025-02-03 08:20] VITALS: RESP 17; TEMP 97.7
--- NOTE | 2025-02-03 08:29 | Cardiology Progress Note ---
Date of Service February 03, 2025 Assessment & Plan (1) Near syncope: (2) Bradycardia: Plan Assessment: 69 year old male presents with near syncopal symptoms with acute GI distress. EKG and telemetry show bradycardia at time of arrival. Cardiology consulted for further assessment and recommendations. Plan: 02/02/2025: 1. Near Syncope 2. Bradycardia -? vaso vagal event given acute GI distress component. -Patient was noted to be lethargic with HR in the 40's upon arrival. Review of telemetry in the 50's with no evidence of high grade heart block, no pauses or arrhythmia. -Review of labs shows a significantly elevated TSH with low Free T4, likely contributing factor for heart rates. Continued management per primary team. Patient had self-discontinued all medications. -Denies any chest pain, pressure or palpitations. Denies any prior cardiac history. -Denies any exposure or known tick bites. -No recent acute illness outside of acute GI event -Echocardiogram pending. -Continue to monitor on telemetry during course of hospitalization 02/03/2025: -patient is stable from a cardiac perspective. Review of telemetry shows no acute events overnight. rates remain 50's-60's -TSH levels are trending down showing positive response to receiving hydrocortisone and loading dose of levothyroxine. patient has been started on daily maintenence dose. Continued management per primary team, but suspect this was the contributing factor for patient's event. Patient will need close lab monitoring for follow up. -Remains asymptomatic and feels back to his baseline. -Echocardiogram shows preserved LV function and no significant valvular disease. -No further cardiac work up needed during course of hospitalization. Case has been discussed with Dr. Horn. Further recommendations regarding plan of care as per his assessment. I spent a total of 30 minutes on the date of service in preparation, delivery, documentation of the care provided to the patient excluding any time spent in the performance of separately billed services. DANA Cai [facility] Admission and Anticipated Discharge Date Admission Date: February 02, 2025 Supervising Physician Co-Signing Physician Notes Cardiology attending: Case discussed with DANA Martinez. Agree with findings and plan as outlined. Lamar Horn , Subjective 02/03/2025: Patient seen and examined in follow up today. Feeling well from a cardiac perspective. Offers no acute concerns. Labs, vitals, diagnostics, telemetry and documentation reviewed. Telemetry reviewed showing SB/SR rates 50-60's. No profound bradycardia and no acute events overnight. Review of Systems Review of Systems: All systems reviewed & are unremarkable except as noted in HPI & below Physical Exam Constitutional: well developed, well nourished and + ill appearing; no acute distress Neck: normal visual inspection and trachea midline Respiratory: normal respiratory effort; no respiratory distress Auscultation: no diminished lung sounds, no crackles, no rales, no rhonchi and no wheezes Cardiovascular: Rate/Rhythm: regular rate and regular rhythm Heart Sounds: normal S1 and normal S2 Vessels: dorsalis pedis pulses present; no JVD Extremities: no edema Skin: no rashes, warm and dry Psychiatric: A+Ox3, euthymic affect Results & Data Vital Signs (Past 12 Hours) Vital Signs Temp Pulse Pulse Resp BP Pulse Ox O2 Del Method 02/03/25 08:19 36.5 C 62 17 99/62 L 95 Room Air 02/03/25 02:50 36.4 C L 57 L 16 103/62 95 Room Air 02/02/25 23:30 36.5 C 62 16 107/70 95 Room Air 02/02/25 21:48 63 Laboratory Results Cardiac Enzymes 02/02/25 02/02/25 Range/Units 08:40 14:45 Troponin I High Sens 3.5 3.5 (0-20) pg/ml CBC 02/02/25 02/03/25 Range/Units 08:40 06:24 WBC 9.88 9.68 (4.8-10.8) K/ul RBC 5.00 4.68 L (4.70-6.10) M/uL Hgb 14.9 14.1 (14.0-18.0) g/dl Hct 45.1 42.6 (42.0-52.0) % Plt Count 190 203 (130-400) K/uL Neut # (Auto) 8.38 H (1.40-6.50) K/uL Lymph # (Auto) 0.90 L (1.20-3.40) K/uL [place] # (Auto) 0.50 (0.11-0.59) K/uL Eos # (Auto) 0.02 (0.00-0.50) K/uL Baso # (Auto) 0.04 (0.00-0.20) K/uL Comprehensive Metabolic Panel 02/02/25 Range/Units 08:40 Sodium 136 (136-145) mmol/L Potassium 4.9 D (3.5-5.1) mmol/L Chloride 100 (98-107) mmol/L Carbon Dioxide 31 (21-32) mmol/L BUN 13 (6-23) mg/dl Creatinine 0.97 (0.6-1.4) mg/dl Glucose 118 H (70-99(Fasting)) mg/dl Calcium 9.5 (8.6-10.3) mg/dl Intake and Output 02/02/25 02/03/25 02/03/25 22:59 06:59 14:59 Intake Total 1395 / 1595 200 / 1595 Balance 1395 / 1595 200 / 1595 Intake: IV 950 / 950 Sodium Chloride 0.9% 1,000 ml @ 950 / 950 100 mls/hr IV .Q10H ARLET Rx#: [id number] Oral 445 / 645 200 / 645 Other: # Unmeasured Voids 1 1 Weight 85.3 kg Coding Level of Care Code 97687 SUB INP/OBS CARE 3/50MIN Diagnoses Near syncope R55 Bradycardia R00.1
[2025-02-03 08:57] LABS: Alanine Aminotransferase 13.0 U/L (7-52); Albumin Globulin Ratio 1.3 (0.9-2); Alkaline Phosphatase 91.0 U/L (34-104); Anion Gap 7.0 (3-11); Bilirubin,Total 0.5 mg/dl (0.2-1.0); Blood Urea Nitrogen 19.0 mg/dl (6-23); Calcium 9.3 mg/dl (8.6-10.3); Carbon Dioxide 27.0 mmol/L (21-32); Chloride 102.0 mmol/L (98-107); Creatinine Clr Calc Pharmacy 67.1 ml/min; Globulin 3.0 gm/dl (2.5-4.0); Glucose 133.0 mg/dl (70-99(Fasting)); Magnesium 2.0 mg/dl (1.7-2.4); Potassium 4.5 mmol/L (3.5-5.1); Sodium 136.0 mmol/L (136-145); Total Protein 6.9 gm/dl (6.0-8.3)
[2025-02-03 09:11] LABS: Thyroid Stimulating Hormone 24.416 uIu/ml (0.300-4.500)
[2025-02-03 11:01] VITALS: BP 109/69; PULSE 67
--- NOTE | 2025-02-03 13:47 | Discharge Summary ---
Discharge Summary Date of Service February 03, 2025 Principal Dx & Hospital Course #1 = Principal Diagnosis (1) Near syncope: 69-year-old male with past med history significant for hypothyroidism, hyperlipidemia, pulmonary granuloma, incidental lung nodule, history of acute respiratory failure unspecified hypoxia or hypercapnia, atherosclerosis of aorta, CAD, rectosigmoid ulcerative colitis, hepatic steatosis, calculus of gallbladder without cholecystitis, degenerative disc disease, history of subdural hematoma who lives with his son and ambulates without support was brought in because of near syncope. Around midnight patient suddenly became diaphoretic was having nausea, vomited couple of times. Was having abdominal discomfort. Ivor dizzy and felt like passing out and then had an episode of diarrhea. Reportedly vomited couple of times and had a one episode diarrhea. No blood in the stools. No blood in the vomitus. EMS was called and brought to the hospital. In the ER initially was lethargic. Bradycardic with heart rate in 40s and 50s. Imaging studies showed possible right heart strain. No PE. CT head is okay. Later patient became more awake.. Currently alert and oriented. Says he is feeling better. His heart rates in the 60s currently. Hemodynamically stable. Currently denies any headache. Denies any chest pain. Denies any shortness of breath. No runny nose or sore throat. No cough. No fevers. Before as all this happened he was doing fine. Son is in the room.Patient states he stopped taking all his medication 1 month ago. Ivor like not taking. About five days ago he had cataract surgery. Near syncope Patient felt diaphoretic, abdominal discomfort, dizziness, vomited couple of times and an episode of diarrhea Was bradycardic in the ER Currently doing okay CTA chest no PE but showing right heart strain CT head is okay Troponin negative Will monitor on telemetry Will follow Serial cardiac enzymes and echo Consult cardiology in a.m. for further recommendations Nausea vomiting and diarrhea Will check stool studies Patient has history of ulcerative colitis CAT scan showing chronic inflammation Hypothyroidism TSH 78 and free T4 is less than 0.3 At home on levothyroxine 125 mcg daily Seems not taking his medications for last about a month Seems noncompliant Will continue his home dose for now Can discuss with endocrinology in a.m. Close follow-up of TSH Hyperlipidemia On statin History of ulcerative colitis On mesalamine DVT prophylaxis SCDs Disposition Telemetry Full code. Notes For Next Care Provider 69-year-old male with past med history significant for hypothyroidism, hyperlipidemia, pulmonary granuloma, incidental lung nodule, history of acute respiratory failure unspecified hypoxia or hypercapnia, atherosclerosis of aorta, CAD, rectosigmoid ulcerative colitis, hepatic steatosis, calculus of gallbladder without cholecystitis, degenerative disc disease, history of subdural hematoma who lives with his son and ambulates without support was brought in because of near syncope. In the ED, given fluids and admitted to medicine. On medicine, noted to be in myxedema coma (TSH 80, T4 undetectable), given stress dose steroids and IV levothyroxine with improvement in thyroid lab numbers. Condition improved. cardiology consulted and recommended treatment of underlying endocrine disease. ON 02/03/2025 patient medically stable for discharge home. To do: [ ] f/u with endocrinology [ ] ensure compliance with medications Medication Changes From Visit -see below Admission HPI Per Admitting Provider 69-year-old male with past med history significant for hypothyroidism, hyperlipidemia, pulmonary granuloma, incidental lung nodule, history of acute respiratory failure unspecified hypoxia or hypercapnia, atherosclerosis of aorta, CAD, rectosigmoid ulcerative colitis, hepatic steatosis, calculus of ga llbladder without cholecystitis, degenerative disc disease, history of subdural hematoma who lives with his son and ambulates without support was brought in because of near syncope. Around midnight patient suddenly became diaphoretic was having nausea, vomited couple of times. Was having abdominal discomfort. Ivor dizzy and felt like passing out and then had an episode of diarrhea. Reportedly vomited couple of times and had a one episode diarrhea. No blood in the stools. No blood in the vomitus. EMS was called and brought to the hospital. In the ER initially was lethargic. Bradycardic with heart rate in 40s and 50s. Imaging studies showed possible right heart strain. No PE. CT head is okay. Later patient became more awake.. Currently alert and oriented. Says he is feeling better. His heart rates in the 60s currently. Hemodynamically stable. Currently denies any headache. Denies any chest pain. Denies any shortness of breath. No runny nose or sore throat. No cough. No fevers. Before as all this happened he was doing fine. Son is in the room.Patient states he stopped taking all his medication 1 month ago. Ivor like not taking. About five days ago he had cataract surgery. Past medical history. As mentioned above Past surgical history. Colonoscopy. Colonoscopy with biopsy. Left knee arthroscopy. Left craniotomy for removal of hematoma. Bur hole drainage of subdural hematoma. Vasectomy Social history. No smoking. No alcohol use. No drug use. Family history. Father had pancreatic cancer. Father alcoholism. Mother had leukemia. Half brother had diabetes. Paternal grandmother alcoholic. Discharge Exam Gen: A&O 3 NAD HEENT: NCAT, EOMI, not icteric. External ears normal. No rhinorrhea. Moist mucous membranes. Neck: Supple, full range of motion, no observable masses, No meningeal sign. Lungs: No Respiratory distress. CV: RRR, no edema. Abdomen: Soft, nondistended, No rebound tenderness. MSK: No joint swelling, no redness. Skin: No rashes, petechiae, lesions. Normal color per patient. Neuro: Normal Gait, Grossly intact. Psych: Appropriate for situation. Updated Medication List Medication Instructions Recorded Confirmed Type atorvastatin 20 mg tablet 20 mg PO DAILY 02/02/25 02/02/25 History betamethasone dipropionate 0.05 % 1 applic topical BID PRN Leg Rash 02/02/25 02/02/25 History topical cream ibuprofen 800 mg tablet 800 mg PO Q8H PRN Pain 02/02/25 02/02/25 History mesalamine 1.2 gram tablet,delayed 1.2 g PO BID 02/02/25 02/02/25 History release valacyclovir 1 gram tablet 0 mg PO BID PRN Cold Sores 02/02/25 02/02/25 History levothyroxine 125 mcg tablet 125 mcg PO DAILYBB 30 days #30 tabs 02/03/25 Rx (Synthroid) ondansetron 4 mg disintegrating 4 mg PO Q8H PRN nausea and 02/03/25 Rx tablet vomiting 4 days #14 tabs Hospital Stay Data Consultations 02/02/25 04:25 ED Decision to Admit Stat 02/02/25 08:26 Consult Cardiology Routine Diagnostic Imagining Performed 02/02/25 01:47 CTA abdomen pelvis w con [CT angio abdomen pelvis w con] Stat 02/02/25 02:15 CT Brain [CT head/brain wo con] Stat CT angio chest PE protocol Stat Pending Results Patient Have Any Pending Studies at Discharge: No Discharge Instructions Given to Patient (Per Discharging Provider) 1. Please follow up with PCP and endocrinology. 2. Please take all medications as prescribed without missing doses. 3. Please stay hydrated. Total Time Total Time Spent Total Time Spent (In Minutes): I spent a total of 35 minutes in direct patient care, including [id number] time with the patient and/or family, reviewing medical records, ordering and reviewing diagnostic tests, and coordinating care with other healthcare providers. This time includes: history taking, physical examination, medical decision making, counseling, ECG interpretation, imaging interpretation, lab interpretation, orders, and education, excluding time spent in the performance of separately billed services.
[2025-02-03 13:59] VITALS: O2SAT 98
--- NOTE | 2025-02-03 18:03 | Electrocardiogram Report ---
Test Reason : Blood Pressure : */* mmHG Vent. Rate : 49 BPM Atrial Rate : 49 BPM P-R Int : 216 ms QRS Dur : 88 ms QT Int : 442 ms P-R-T Axes : 36 17 69 degrees QTcB Int : 399 ms Sinus bradycardia with 1st degree A-V block Otherwise normal ECG When compared with ECG of 02-Feb-2025 01:27, No significant change was found Confirmed by Nj Deleon ([id number]) on 02/03/2025 6:03:33 PM Referred By: REFERRED SELF Confirmed By: Nj Deleon
[2025-02-05] MEDS ORDERED: [UNRECOGNIZED DRUG - OTHER] OPL SCH (09:00)
[2025-02-05] MEDS ORDERED: MOXI OPL SCH (09:00)
[2025-02-05] MEDS ORDERED: PREDNISOLONE OPL SCH (09:00)
== END 2025-02-03 14:01 | disposition home or self-care (01) ==
LOC: EDINP 01:09 → ED 01:09 → 2S 08:26

== ENCOUNTER 2025-02-15 02:35 | Observation (INO) ==
--- NOTE | 2025-02-15 03:20 | Emergency Department Note ---
Impression & Plan Abdominal pain, epigastric, Weakness, Vomiting Admit to the [facility] ED Provider Note NAME: PAULO FLANNERY AGE: 69 SEX: Male INFORMANT: Patient ED PROVIDER(S): Jennifer Wolfe DO CHIEF COMPLAINT: Epigastric pain, vomiting and weakness PLAN: Disposition: Admit to the [facility] MEDICAL DECISION MAKING: This is a 69-year-old male patient who presents to the emergency department with sudden onset of epigastric pain, vomiting and diaphoresis. Patient awoke from sleep with his symptoms. He had the exact same presentation just a couple weeks ago which brought him to the emergency department for which I saw him for at that time. He was admitted to the hospital at that time and thought to be significantly hypothyroid as he was profoundly bradycardic. Of note, the patient had cataract surgery just 3 days ago and during the prior episode he had also had cataract surgery 3 days prior. Laboratory studies at this time revealed no leukocytosis or anemia. Glucose was 183. Troponin was normal and TSH is now 16.9 in comparison to 78 previously. Chest x-ray was unremarkable. EKG now shows a sinus bradycardia at a rate of 59 with first-degree AV block. During his previous visit he was more profoundly bradycardic with rates in the 30s. I did order a Lyme titer which was negative today. [facility] Patient was treated with IV Zofran for the nausea. This did give him some relief but he continued to complain of profound dizziness. He was given a dose of oral meclizine. Care/management discussed with: case manager and [facility] Triage Nursing notes: reviewed and agree with them. Vital Signs: reviewed and remarkable for bradycardia Additional History obtained from: Patient's daughter who was at the bedside Prior/ Outside/ External records reviewed: I did review the inpatient medical records from his admission just a couple of weeks ago Differential Diagnosis: Cardiac dysrhythmia, pancreatitis, secondary effects of anesthesia, hypothyroidism, cardiac ischemia Diagnostics, independently interpreted by me: ECG: Sinus bradycardia at a rate of 59 with first-degree AV block. There is no ST segment elevation or signs of ischemia. There is no ectopy. Cardiac Monitoring: Sinus bradycardia at a rate of 56 Imaging studies: Portable chest x-ray: No acute evidence of cardiomegaly or pulmonary infiltrates or opacities as per my independent interpretation HPI: 69 year old Male arrives for evaluation of diaphoresis and drowsiness. patient was sleeping when he awoke with sweating and diaphoresis. Patient then developed epigastric abdominal pain and vomiting. patient had a very similar episode 9 days ago for which she presented to the emergency department. Coincidentally, this happened 3 days after cataract surgery similarly during the previous episode. PAST MEDICAL HISTORY: See Below, PAST SURGICAL HISTORY: See Below, SOCIAL HISTORY: See Below, HOME MEDICATIONS: See list ALLERGIES: none VITALS: See Below PHYSICAL EXAMINATION: HEENT: Head - normocephalic and atraumatic. Pupils are equal, round, and reactive to light. Extraocular eye muscles are intact, and sclera are anicteric. Nose - moist nasal mucosa without discharge. Mouth - moist buccal mucosa. Oropharynx is nonerythematous and there is no tonsillar exudate or edema noted. Neck: Supple; no cervical lymphadenopathy or nuchal rigidity Heart: bradycardic rate and regular rhythm. There is a normal S1 and S2 with no murmurs, clicks, or gallops appreciated. Lungs: Clear to auscultation bilaterally with no wheezes, rales, or rhonchi. Abdomen: Soft, moderately tender to palpation in the epigastrium. The rest of the abdomen is nondistended with good bowel sounds. There are no palpable pulsatile masses or hepatosplenomegaly. There is no guarding, rigidity, or rebound noted. Extremities: No evidence of cyanosis, clubbing, or edema. There are easily palpable peripheral pulses. Skin: warm and diaphoretic with good turgor and no rashes. Emergency Department treatment: telemetry monitor, IV Zofran, oral meclizine Emergency Department course: The patient was evaluated in room C-7. A complete history and physical was performed. An order was placed for continuous cardiac monitoring. The patient was in sinus bradycardia at a rate of 56. IV lock was initiated and labs were drawn as above. Twelve-lead EKG was obtained. Patient was given a dose of IV Zofran. Portable chest x-ray was performed. Patient had persistent dizziness and was given a dose of oral meclizine. The case was discussed with the [facility] Hospitalist and they will evaluate for further inpatient care. Past Med/Surg History Problem List (Updated 02/15/25 @ 16:15 by Jennifer Wolfe DO) Vomiting (Acute) Weakness (Acute) Abdominal pain, epigastric (Acute) Syncope Weakness (Acute) Bradycardia (Acute) Hypoxia (Acute) Bradycardia Near syncope Encounter for pre-operative examination Acute hypoxemic respiratory failure COVID-19 (Acute) Thyroid condition Colitis Sinusitis (Acute) Medical History Near syncope hx, recently admitted overnight to [facility] 02/02/25-02/03/25>brought to ER by EMS for weakness, diarrhea, abdominal cramping, and diaphoresis; "had not taken his medications for over a month" per records and pt. "feeling much better now and taking his medications as prescribed" History of COVID-19 2022, no residual symptoms Ulcerative colitis no meds Hypothyroidism per pt no longer taking medication History of subdural hematoma (08/2017) Temporomandibular joint disorder "only happens if yawning or eating a big sandwich"--no device Hearing deficit Hypomagnesemia Surgical History Hx of left cataract extraction History of craniotomy (08/2017) evacuation of subdural hematoma @ [facility] [place] History of arthroscopy of left knee meniscus repair History of colonoscopy History of tooth extraction Family History Other No family history of adverse response to anesthesia No pertinent family history in first degree relatives Social History Smoking Status: Never smoker Second Hand Exposure: No; Do You Dip or Chew Tobacco: No; Tobacco Cessation Education Requested by Patient: No Hx Alcohol Use: No Hx Substance Use: No Preferred Language: Bruneian Communication Ability: Effective Programmer Business Required: No Beliefs That Will Affect Care: None Current Living Situation: Alone Other Information That Helps Us Care for You: No Feels Safe at Home: Yes Safety Concerns: Feels Safe At This Time Assistive Devices: None Allergies Allergies Allergy/AdvReac Type Severity Reaction Status Date / Time No Known Allergies Allergy Verified 02/11/25 10:20 Home Meds Home Medications Medication Instructions Recorded Confirmed atorvastatin 20 mg tablet 20 mg PO DAILY 02/02/25 02/15/25 betamethasone dipropionate 0.05 % 1 applic topical BID PRN Leg Rash 02/02/25 02/15/25 topical cream ibuprofen 800 mg tablet 800 mg PO Q8H PRN Pain 02/02/25 02/15/25 mesalamine 1.2 gram tablet,delayed 1.2 g PO BID 02/02/25 02/15/25 release valacyclovir 1 gram tablet 0 mg PO BID PRN Cold Sores 02/02/25 02/15/25 Previous Rx's Medication Instructions Recorded levothyroxine 125 mcg tablet 125 mcg PO DAILYBB 30 days #30 tabs 02/03/25 (Synthroid) Results & Data (ED) Vital Signs Vital Signs - 24 hr 02/15/25 02:39 02/15/25 02:45 02/15/25 02:45 Temperature 36.9 C Temperature Source Temporal Artery Scan Pulse Rate 64 Pulse Rate from SpO2 Sensor Respiratory Rate 19 Respiratory Effort / Characteristics Non-Labored Spontaneous Respiratory Depth Normal Blood Pressure 139/73 145/95 H 145/95 H Blood Pressure Mean 95 115 115 Pulse Oximetry 96 Oxygen Delivery Method Room Air Sepsis Recent Fever Within 48 Hours No Sepsis New/Unexplained Change in Mental Status N/A Sepsis Action Taken by Nursing No Action Required 02/15/25 02:45 02/15/25 02:45 02/15/25 02:46 Temperature Temperature Source Pulse Rate 62 Pulse Rate from SpO2 Sensor Respiratory Rate Respiratory Effort / Characteristics Respiratory Depth Blood Pressure 145/95 H 145/95 H Blood Pressure Mean 115 115 Pulse Oximetry Oxygen Delivery Method Sepsis Recent Fever Within 48 Hours Sepsis New/Unexplained Change in Mental Status Sepsis Action Taken by Nursing 02/15/25 02:48 02/15/25 02:51 02/15/25 02:54 Temperature Temperature Source Pulse Rate 59 L 57 L 58 L Pulse Rate from SpO2 Sensor Respiratory Rate 21 17 21 Respiratory Effort / Characteristics Respiratory Depth Blood Pressure Blood Pressure Mean Pulse Oximetry Oxygen Delivery Method Sepsis Recent Fever Within 48 Hours Sepsis New/Unexplained Change in Mental Status Sepsis Action Taken by Nursing 02/15/25 03:00 02/15/25 03:00 02/15/25 03:03 Temperature Temperature Source Pulse Rate 56 L Pulse Rate from SpO2 Sensor 55 L Respiratory Rate 21 Respiratory Effort / Characteristics Respiratory Depth Blood Pressure 137/87 137/87 Blood Pressure Mean 105 105 Pulse Oximetry 94 Oxygen Delivery Method Sepsis Recent Fever Within 48 Hours Sepsis New/Unexplained Change in Mental Status Sepsis Action Taken by Nursing 02/15/25 03:14 02/15/25 03:15 02/15/25 03:30 Temperature Temperature Source Pulse Rate 58 L Pulse Rate from SpO2 Sensor 58 L Respiratory Rate 19 Respiratory Effort / Characteristics Respiratory Depth Blood Pressure 129/86 Blood Pressure Mean 103 Pulse Oximetry 94 Oxygen Delivery Method Room Air Sepsis Recent Fever Within 48 Hours Sepsis New/Unexplained Change in Mental Status Sepsis Action Taken by Nursing 02/15/25 03:30 02/15/25 03:30 02/15/25 03:30 Temperature Temperature Source Pulse Rate 56 L Pulse Rate from SpO2 Sensor 56 L Respiratory Rate 19 Respiratory Effort / Characteristics Respiratory Depth Blood Pressure 129/86 129/86 Blood Pressure Mean 103 103 Pulse Oximetry 92 Oxygen Delivery Method Sepsis Recent Fever Within 48 Hours Sepsis New/Unexplained Change in Mental Status Sepsis Action Taken by Nursing 02/15/25 03:48 02/15/25 04:00 02/15/25 04:00 Temperature Temperature Source Pulse Rate 53 L Pulse Rate from SpO2 Sensor 53 L Respiratory Rate 17 Respiratory Effort / Characteristics Respiratory Depth Blood Pressure 126/81 126/81 Blood Pressure Mean 93 93 Pulse Oximetry 97 Oxygen Delivery Method Sepsis Recent Fever Within 48 Hours Sepsis New/Unexplained Change in Mental Status Sepsis Action Taken by Nursing 02/15/25 04:00 02/15/25 04:18 02/15/25 04:21 Temperature Temperature Source Pulse Rate 49 L 54 L 57 L Pulse Rate from SpO2 Sensor 51 L 55 L 56 L Respiratory Rate 18 14 18 Respiratory Effort / Characteristics Respiratory Depth Blood Pressure Blood Pressure Mean Pulse Oximetry 95 96 99 Oxygen Delivery Method Sepsis Recent Fever Within 48 Hours Sepsis New/Unexplained Change in Mental Status Sepsis Action Taken by Nursing 02/15/25 04:30 02/15/25 04:30 02/15/25 04:30 Temperature Temperature Source Pulse Rate 53 L Pulse Rate from SpO2 Sensor 55 L Respiratory Rate 16 Respiratory Effort / Characteristics Respiratory Depth Blood Pressure 112/69 112/69 Blood Pressure Mean 87 87 Pulse Oximetry 96 Oxygen Delivery Method Sepsis Recent Fever Within 48 Hours Sepsis New/Unexplained Change in Mental Status Sepsis Action Taken by Nursing 02/15/25 04:30 02/15/25 04:42 02/15/25 04:51 Temperature Temperature Source Pulse Rate 53 L 54 L Pulse Rate from SpO2 Sensor 53 L 61 Respiratory Rate 14 16 Respiratory Effort / Characteristics Respiratory Depth Blood Pressure 112/69 Blood Pressure Mean 87 Pulse Oximetry 98 97 Oxygen Delivery Method Sepsis Recent Fever Within 48 Hours Sepsis New/Unexplained Change in Mental Status Sepsis Action Taken by Nursing 02/15/25 05:00 02/15/25 05:06 02/15/25 05:27 Temperature Temperature Source Pulse Rate 52 L 52 L Pulse Rate from SpO2 Sensor 51 L 52 L Respiratory Rate 19 12 Respiratory Effort / Characteristics Respiratory Depth Blood Pressure 117/84 Blood Pressure Mean 90 Pulse Oximetry 97 98 Oxygen Delivery Method Sepsis Recent Fever Within 48 Hours Sepsis New/Unexplained Change in Mental Status Sepsis Action Taken by Nursing 02/15/25 05:30 02/15/25 05:30 02/15/25 05:42 Temperature Temperature Source Pulse Rate 61 Pulse Rate from SpO2 Sensor 56 L Respiratory Rate 15 Respiratory Effort / Characteristics Respiratory Depth Blood Pressure 124/80 124/80 Blood Pressure Mean 92 92 Pulse Oximetry 96 Oxygen Delivery Method Sepsis Recent Fever Within 48 Hours Sepsis New/Unexplained Change in Mental Status Sepsis Action Taken by Nursing 02/15/25 05:48 02/15/25 06:00 02/15/25 06:03 Temperature Temperature Source Pulse Rate 50 L 54 L Pulse Rate from SpO2 Sensor 51 L 54 L Respiratory Rate 15 14 Respiratory Effort / Characteristics Respiratory Depth Blood Pressure 106/67 Blood Pressure Mean 88 Pulse Oximetry 95 98 Oxygen Delivery Method Sepsis Recent Fever Within 48 Hours Sepsis New/Unexplained Change in Mental Status Sepsis Action Taken by Nursing 02/15/25 06:15 Temperature Temperature Source Pulse Rate 58 L Pulse Rate from SpO2 Sensor 58 L Respiratory Rate 23 Respiratory Effort / Characteristics Respiratory Depth Blood Pressure Blood Pressure Mean Pulse Oximetry 96 Oxygen Delivery Method Sepsis Recent Fever Within 48 Hours Sepsis New/Unexplained Change in Mental Status Sepsis Action Taken by Nursing Laboratory Data 02/15/25 02:51 02/15/25 02:51 Lab Results 02/15/25 Range/Units 02:51 WBC 6.70 (4.8-10.8) K/ul RBC 4.65 L (4.70-6.10) M/uL Hgb 14.0 (14.0-18.0) g/dl Hct 42.2 (42.0-52.0) % MCV 90.8 (80.0-100.0) fL MCH 30.1 (25.0-34.0) pg MCHC 33.2 (32.0-36.0) g/dL RDW Std Deviation 47.5 H (36.4-46.3) fL RDW Coeff of [place] 14.2 (11.5-14.5) % Plt Count 215 (130-400) K/uL MPV 10.1 (9.4-12.4) fL Immature Gran % (Auto) 0.3 % Neut % (Auto) 60.2 % Lymph % (Auto) 27.0 % Butler % (Auto) 9.3 % Eos % (Auto) 2.2 % Baso % (Auto) 1.0 % Neut # (Auto) 4.03 (1.40-6.50) K/uL Lymph # (Auto) 1.81 (1.20-3.40) K/uL Butler # (Auto) 0.62 H (0.11-0.59) K/uL Eos # (Auto) 0.15 (0.00-0.50) K/uL Baso # (Auto) 0.07 (0.00-0.20) K/uL Immature Gran # (Auto) 0.02 (0.01-0.20) K/uL Sodium 137 (136-145) mmol/L Potassium 3.5 (3.5-5.1) mmol/L Chloride 103 (98-107) mmol/L Carbon Dioxide 26 (21-32) mmol/L Anion Gap 8 (3-11) BUN 17 (6-23) mg/dl Creatinine 1.18 (0.6-1.4) mg/dl Est Cr Clr Drug Dosing Not Reportable eGFR 67.21 BUN/Creatinine Ratio 14.4 (10-20) Glucose 183 H (70-99(Fasting)) mg/dl Calcium 9.3 (8.6-10.3) mg/dl Magnesium 2.0 (1.7-2.4) mg/dl Total Bilirubin 0.5 (0.2-1.0) mg/dl AST 19 (13-39) U/L ALT 15 (7-52) U/L Alkaline Phosphatase 94 (34-104) U/L Troponin I High Sens 3.8 (0-20) pg/ml Total Protein 7.6 (6.0-8.3) gm/dl Albumin 4.0 (3.4-5.0) gm/dl Globulin 3.6 (2.5-4.0) gm/dl Albumin/Globulin Ratio 1.1 (0.9-2) Lipase 26 (11-82) U/L TSH 16.925 H (0.300-4.500) uIu/ml Free T4 0.87 (0.61-1.60) ng/dl Lyme Disease Screen Negative (Negative) Administered Medications Atorvastatin Calcium (Atorvastatin 20 Mg Tab) 20 mg PO DAILY ARLET Stop: 03/17/25 08:59 Last Admin: 02/15/25 10:13 Dose: 20 mg Documented By: CORA Sodium Chloride (Nss) 1,000 mls @ 100 mls/hr IV .Q10H ARLET Stop: 02/18/25 08:18 Last Admin: 02/15/25 08:32 Dose: 100 mls/hr Documented By: CORA Levothyroxine Sodium (Levothyroxine Sodium 125 Mcg Tablet) 125 mcg PO DAILYBB ARLET Stop: 03/17/25 08:29 Last Admin: 02/15/25 10:13 Dose: 125 mcg Documented By: CORA Discontinued Medications Meclizine HCl (Meclizine Hcl 25 Mg Tab) 25 mg PO NOW STA Stop: 02/15/25 04:40 Last Admin: 02/15/25 04:43 Dose: 25 mg Documented By: TERRIE Ondansetron HCl (Ondansetron Inj 2 Mg/Ml 2 Ml Vial) 4 mg IV NOW STA Stop: 02/15/25 03:16 Last Admin: 02/15/25 03:25 Dose: 4 mg Documented By: TERRIE Imaging Data Radiologist's Impression: Chest X-Ray 02/15/25 03:14 EXAM: XR chest 1V portable CLINICAL HISTORY: weakness. TECHNIQUE: An X-ray image of the chest is obtained in AP projection. COMPARISON: 02/02/2025 FINDINGS: Pulmonary Parenchyma: Lungs are clear bilaterally. No evidence of consolidation, collapse, or focal opacities. No pulmonary nodules are identified. Blunted bilateral CP angles are projectional. However possibility of pleural thickening/minimal pleural effusion cannot be ruled out. Changes of COPD. Heart and Mediastinum: Heart size and shape are normal. No mediastinal widening or masses. No hilar or mediastinal lymphadenopathy. Bony Thorax: Bony thorax appears intact without fractures or deformities. Soft Tissues: Soft tissues overlying the chest wall are unremarkable. IMPRESSION: 1. No acute cardiopulmonary abnormalities are identified. 2. Interval development of blunted bilateral costophrenic angles that could be projectional due to rotation in the current study, however possibility of minimal pleural effusion/pleural thickening cannot be ruled out. Electronically signed by Geoff Dennison 02-15-2025 04:02 AM Discharge Plan Visit Data Chief Complaint: Vomiting Stated Complaint: VOMITING ED Provider: Jennifer Wolfe Discharge Problem: Abdominal pain, epigastric, Weakness, Vomiting Patient Disposition: Admitted As Inpatient Condition: Fair Discharge Instructions Interventions: ED Discharge Assessment Last Done: 02/15/25 07:45
[2025-02-15] MEDS: ONDANSETRON INJ 2 MG/ML 2 ML VIAL IV STA (03:25)
[2025-02-15 03:26] LABS: Hematocrit (blood only) 42.2 % (42.0-52.0); Hemoglobin 14.0 g/dl (14.0-18.0); Immature Granulocytes # (auto) 0.02 K/uL (0.01-0.20); Immature Granulocytes % (auto) 0.3 %; Mean Corpuscular Hemoglobin 30.1 pg (25.0-34.0); Mean Corpuscular Volume 90.8 fL (80.0-100.0); Platelet Count 215 K/uL (130-400); RDW Standard Deviation 47.5 fL (36.4-46.3); Red Blood Count 4.65 M/uL (4.70-6.10); White Blood Count 6.70 K/ul (4.8-10.8)
[2025-02-15 03:34] LABS: Alanine Aminotransferase 15 U/L (7-52); Albumin Globulin Ratio 1.1 (0.9-2); Alkaline Phosphatase 94 U/L (34-104); Anion Gap 8 (3-11); Bilirubin,Total 0.5 mg/dl (0.2-1.0); Blood Urea Nitrogen 17 mg/dl (6-23); Calcium 9.3 mg/dl (8.6-10.3); Carbon Dioxide 26 mmol/L (21-32); Chloride 103 mmol/L (98-107); Globulin 3.6 gm/dl (2.5-4.0); Glucose 183 mg/dl (70-99(Fasting)); Lipase 26 U/L (11-82); Magnesium 2.0 mg/dl (1.7-2.4); Potassium 3.5 mmol/L (3.5-5.1); Sodium 137 mmol/L (136-145); Total Protein 7.6 gm/dl (6.0-8.3)
[2025-02-15 03:49] LABS: Thyroid Stimulating Hormone 16.925 uIu/ml (0.300-4.500)
--- NOTE | 2025-02-15 04:03 | XRay Report ---
EXAM: XR chest 1V portable CLINICAL HISTORY: weakness. TECHNIQUE: An X-ray image of the chest is obtained in AP projection. COMPARISON: 02/02/2025 FINDINGS: Pulmonary Parenchyma: Lungs are clear bilaterally. No evidence of consolidation, collapse, or focal opacities. No pulmonary nodules are identified. Blunted bilateral CP angles are projectional. However possibility of pleural thickening/minimal pleural effusion cannot be ruled out. Changes of COPD. Heart and Mediastinum: Heart size and shape are normal. No mediastinal widening or masses. No hilar or mediastinal lymphadenopathy. Bony Thorax: Bony thorax appears intact without fractures or deformities. Soft Tissues: Soft tissues overlying the chest wall are unremarkable. IMPRESSION: 1. No acute cardiopulmonary abnormalities are identified. 2. Interval development of blunted bilateral costophrenic angles that could be projectional due to rotation in the current study, however possibility of minimal pleural effusion/pleural thickening cannot be ruled out. Electronically signed by Geoff Dennison 02-15-2025 04:02 AM
[2025-02-15] MEDS: MECLIZINE HCL 25 MG TAB PO STA (04:43)
--- NOTE | 2025-02-15 06:24 | History & Physical Report ---
Date of Service February 15, 2025 Assessment & Plan (1) Syncope: Plan: 69-year-old male with past med history significant for hypothyroidism, hyperlipidemia, pulmonary granuloma, incidental lung nodule, history of acute respiratory failure unspecified hypoxia or hypercapnia, atherosclerosis of aorta, CAD, rectosigmoid ulcerative colitis, hepatic steatosis, calculus of gallbladder without cholecystitis, degenerative disc disease, history of subdural hematoma presents with nausea, vomiting, sweating and seems had syncope. Daughter is in the room. This is second episode. Patient was in the hospital on 02/02/2025 with similar episode after cataract surgery and during that admission was found to be noncompliant with thyroid medication and TSH was in 70s, received IV Synthyroid and did okay and was discharged the next day. Incidentally this episode again happened after second cataract surgery on 02/11/2025. As per daughter after surgery patient was doing okay. He even went to daughter's son's graduation democr[employer] yesterday and was doing okay. After going home and sleeping he woke up in the middle of the night with nausea, vomiting, sweating, dizziness not feeling well. He called his daughter but not able to reach her. So he drove himself to his daughter's place which was not very far away. Daughter brought him to the hospital. Daughter says on the way he seems to be passing out. In the hospital parking lot he vomited a lot and seemed he passed out. Patient was brought in wheelchair to the ER. As per ER physician patient was lethargic. Lyme screen was negative. But later patient again came back to his usual self. Currently patient is alert and oriented x 3. Able to give history. Currently denies any headache. Vision is somewhat blurry from surgery. No runny nose or sore throat. No cough. Afebrile. Denies any chest pain or shortness of breath. Appetite is okay. No nausea or vomiting. No abdominal pain. Normal bowel and bladder movements. Currently hemodynamics are okay. Heart rates are in 50s. TSH is 16 today. When asked he says he is taking all his medications. Denies any alcohol use. Meclizine was given in the ER. Syncope Patient woke up with nausea, vomiting, sweating and dizziness As per daughter patient was passing out while she was driving him to the hospital Initially was lethargic in the ER Currently alert and oriented Similar presentation recently Incidentally both times after cataract surgery Last admission tsh was 70 and was noncompliant with thyroid medication TSH is improved to 16 Will monitor on telemetry IV fluids Consult cardiology in a.m. for further recommendations Nausea and vomiting Currently seems to be improved Hypothyroidism Continue Synthyroid Follow-up with PCP History of ulcerative colitis On mesalamine Hyperlipidemia On statin DVT prophylaxis SCDs Disposition Observation telemetry Full code History of Present Illness Chief Complaint: Nausea,, vomiting ,dizziness and syncope Primary Care Provider: Jules Coronado MD 69-year-old male with past med history significant for hypothyroidism, hyperlipidemia, pulmonary granuloma, incidental lung nodule, history of acute respiratory failure unspecified hypoxia or hypercapnia, atherosclerosis of aorta, CAD, rectosigmoid ulcerative colitis, hepatic steatosis, calculus of gallbladder without cholecystitis, degenerative disc disease, history of subdural hematoma presents with nausea, vomiting, sweating and seems had syncope. Daughter is in the room. This is second episode. Patient was in the hospital on 02/02/2025 with similar episode after cataract surgery and during that admission was found to be noncompliant with thyroid medication and TSH was in 70s, received IV Synthyroid and did okay and was discharged the next day. Incidentally this episode again happened after second cataract surgery on 02/11/2025. As per daughter after surgery patient was doing okay. He even went to daughter's son's graduation democrat yesterday and was doing okay. After going home and sleeping he woke up in the middle of the night with nausea, vomiting, sweating, dizziness not feeling well. He called his daughter but not able to reach her. So he drove himself to his daughter's place which was not very far away. Daughter brought him to the hospital. Daughter says on the way he seems to be passing out. In the hospital parking lot he vomited a lot and seemed he passed out. Patient was brought in wheelchair to the ER. As per ER physician patient was lethargic. Lyme screen was negative. But later patient again came back to his usual self. Currently patient is alert and oriented x 3. Able to give history. Currently denies any headache. Vision is somewhat blurry from surgery. No runny nose or sore throat. No cough. Afebrile. Denies any chest pain or shortness of breath. Appetite is okay. No nausea or vomiting. No abdominal pain. Normal bowel and bladder movements. Currently hemodynamics are okay. Heart rates are in 50s. TSH is 16 today. When asked he says he is taking all his medications. Denies any alcohol use. Meclizine was given in the ER. Past medical history. As mentioned above. Past surgical history. Colonoscopy. Colonoscopy with biopsy. Left knee arthroscopy. Left craniotomy for removal of hematoma. Bur hole drainage of subdural hematoma. Vasectomy Social history. No smoking. No alcohol use. No drug use. Family history. Father had pancreatic cancer. Father alcoholism. Mother had leukemia. Half brother had diabetes. Paternal grandmother alcoholic. Allergies Allergy/AdvReac Type Severity Reaction Status Date / Time No Known Allergies Allergy Verified 02/11/25 10:20 Home Medications Medication Instructions Recorded Confirmed Type atorvastatin 20 mg tablet 20 mg PO DAILY 02/02/25 02/15/25 History betamethasone dipropionate 0.05 % 1 applic topical BID PRN Leg Rash 02/02/25 02/15/25 History topical cream ibuprofen 800 mg tablet 800 mg PO Q8H PRN Pain 02/02/25 02/15/25 History mesalamine 1.2 gram tablet,delayed 1.2 g PO BID 02/02/25 02/15/25 History release valacyclovir 1 gram tablet 0 mg PO BID PRN Cold Sores 02/02/25 02/15/25 History levothyroxine 125 mcg tablet 125 mcg PO DAILYBB 30 days #30 tabs 02/03/25 02/15/25 Rx (Synthroid) Past Med/Surg History Problem List (Updated 02/15/25 @ 06:31 by Chandler Holliday MD) Syncope Weakness (Acute) Bradycardia (Acute) Hypoxia (Acute) Bradycardia Near syncope Encounter for pre-operative examination Acute hypoxemic respiratory failure COVID-19 (Acute) Thyroid condition Colitis Sinusitis (Acute) Medical History Near syncope hx, recently admitted overnight to [facility] 02/02/25-02/03/25>brought to ER by EMS for weakness, diarrhea, abdominal cramping, and diaphoresis; "had not taken his medications for over a month" per records and pt. "feeling much better now and taking his medications as prescribed" History of COVID-19 2022, no residual symptoms Ulcerative colitis no meds Hypothyroidism per pt no longer taking medication History of subdural hematoma (08/2017) Temporomandibular joint disorder "only happens if yawning or eating a big sandwich"--no device Hearing deficit Hypomagnesemia Surgical History Hx of left cataract extraction History of craniotomy (08/2017) evacuation of subdural hematoma @ [facility] History of arthroscopy of left knee meniscus repair History of colonoscopy History of tooth extraction Family History Other No family history of adverse response to anesthesia No pertinent family history in first degree relatives Social History Smoking Status: Never smoker Second Hand Exposure: No; Do You Dip or Chew Tobacco: No; Hx Alcohol Use: No Hx Substance Use: No Preferred Language: Iranian Communication Ability: Effective 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 ENT- oropharynx clear Neck- supple, no JVD. Lungs- clear to auscultation no wheezing or crackles Heart- regular rate and rhythm; no murmur, no gallop. Abdomen- normal bowel sounds, soft, nontender, no distension Extremities- no pretibial edema, no erythema seen Neuro- alert, oriented x 3; PERRL, no facial palsy; no dysarthria; moves extremities Results & Data Results & Data Vital Signs (Past 12 Hours) Vital Signs Temp Pulse Resp BP Pulse Ox O2 Del Method 02/15/25 04:21 57 L 18 99 02/15/25 04:18 54 L 14 96 02/15/25 04:00 49 L 18 95 02/15/25 04:00 126/81 02/15/25 04:00 126/81 02/15/25 03:48 53 L 17 97 02/15/25 03:30 56 L 19 92 02/15/25 03:30 129/86 02/15/25 03:30 129/86 02/15/25 03:30 129/86 02/15/25 03:15 58 L 19 94 02/15/25 03:14 Room Air 02/15/25 03:03 56 L 21 94 02/15/25 03:00 137/87 02/15/25 03:00 137/87 02/15/25 02:54 58 L 21 02/15/25 02:51 57 L 17 02/15/25 02:48 59 L 21 02/15/25 02:46 62 02/15/25 02:45 145/95 H 02/15/25 02:45 145/95 H 02/15/25 02:45 145/95 H 02/15/25 02:45 145/95 H 02/15/25 02:39 36.9 C 64 19 139/73 96 Room Air Diagnostic Findings Laboratory Results WBC 6.70 K/ul (4.8-10.8) 02/15/25 02:51 RBC 4.65 M/uL (4.70-6.10) L 02/15/25 02:51 Hgb 14.0 g/dl (14.0-18.0) 02/15/25 02:51 Hct 42.2 % (42.0-52.0) 02/15/25 02:51 MCV 90.8 fL (80.0-100.0) 02/15/25 02:51 MCH 30.1 pg (25.0-34.0) 02/15/25 02:51 MCHC 33.2 g/dL (32.0-36.0) 02/15/25 02:51 RDW Std Deviation 47.5 fL (36.4-46.3) H 02/15/25 02:51 RDW Coeff of [place] 14.2 % (11.5-14.5) 02/15/25 02:51 Plt Count 215 K/uL (130-400) 02/15/25 02:51 MPV 10.1 fL (9.4-12.4) 02/15/25 02:51 Immature Gran % (Auto) 0.3 % 02/15/25 02:51 Neut % (Auto) 60.2 % 02/15/25 02:51 Lymph % (Auto) 27.0 % 02/15/25 02:51 [place] % (Auto) 9.3 % 02/15/25 02:51 Eos % (Auto) 2.2 % 02/15/25 02:51 Baso % (Auto) 1.0 % 02/15/25 02:51 Neut # (Auto) 4.03 K/uL (1.40-6.50) 02/15/25 02:51 Lymph # (Auto) 1.81 K/uL (1.20-3.40) 02/15/25 02:51 [place] # (Auto) 0.62 K/uL (0.11-0.59) H 02/15/25 02:51 Eos # (Auto) 0.15 K/uL (0.00-0.50) 02/15/25 02:51 Baso # (Auto) 0.07 K/uL (0.00-0.20) 02/15/25 02:51 Immature Gran # (Auto) 0.02 K/uL (0.01-0.20) 02/15/25 02:51 Sodium 137 mmol/L (136-145) 02/15/25 02:51 Potassium 3.5 mmol/L (3.5-5.1) 02/15/25 02:51 Chloride 103 mmol/L (98-107) 02/15/25 02:51 Carbon Dioxide 26 mmol/L (21-32) 02/15/25 02:51 Anion Gap 8 (3-11) 02/15/25 02:51 BUN 17 mg/dl (6-23) 02/15/25 02:51 Creatinine 1.18 mg/dl (0.6-1.4) 02/15/25 02:51 Est Cr Clr Drug Dosing Not Reportable 02/15/25 02:51 eGFR 67.21 02/15/25 02:51 BUN/Creatinine Ratio 14.4 (10-20) 02/15/25 02:51 Glucose 183 mg/dl (70-99(Fasting)) H 02/15/25 02:51 Calcium 9.3 mg/dl (8.6-10.3) 02/15/25 02:51 Magnesium 2.0 mg/dl (1.7-2.4) 02/15/25 02:51 Total Bilirubin 0.5 mg/dl (0.2-1.0) 02/15/25 02:51 AST 19 U/L (13-39) 02/15/25 02:51 ALT 15 U/L (7-52) 02/15/25 02:51 Alkaline Phosphatase 94 U/L (34-104) 02/15/25 02:51 Troponin I High Sens 3.8 pg/ml (0-20) 02/15/25 02:51 Total Protein 7.6 gm/dl (6.0-8.3) 02/15/25 02:51 Albumin 4.0 gm/dl (3.4-5.0) 02/15/25 02:51 Globulin 3.6 gm/dl (2.5-4.0) 02/15/25 02:51 Albumin/Globulin Ratio 1.1 (0.9-2) 02/15/25 02:51 Lipase 26 U/L (11-82) 02/15/25 02:51 TSH 16.925 uIu/ml (0.300-4.500) H 02/15/25 02:51 Free T4 0.87 ng/dl (0.61-1.60) 02/15/25 02:51 Lyme Disease Screen Negative (Negative) 02/15/25 02:51 Impressions Chest X-Ray 02/15/25 03:14 EXAM: XR chest 1V portable CLINICAL HISTORY: weakness. TECHNIQUE: An X-ray image of the chest is obtained in AP projection. COMPARISON: 02/02/2025 FINDINGS: Pulmonary Parenchyma: Lungs are clear bilaterally. No evidence of consolidation, collapse, or focal opacities. No pulmonary nodules are identified. Blunted bilateral CP angles are projectional. However possibility of pleural thickening/minimal pleural effusion cannot be ruled out. Changes of COPD. Heart and Mediastinum: Heart size and shape are normal. No mediastinal widening or masses. No hilar or mediastinal lymphadenopathy. Bony Thorax: Bony thorax appears intact without fractures or deformities. Soft Tissues: Soft tissues overlying the chest wall are unremarkable. IMPRESSION: 1. No acute cardiopulmonary abnormalities are identified. 2. Interval development of blunted bilateral costophrenic angles that could be projectional due to rotation in the current study, however possibility of minimal pleural effusion/pleural thickening cannot be ruled out. Electronically signed by Geoff Dennison 02-15-2025 04:02 AM ECG Additional Comments: ECG. Sinus bradycardia with first-degree AV block rate of 59. Nonspecific T wave abnormality in inferior leads. QTc 425 Code Status & VTE Plan VTE Prophylaxis Plan VTE Prophylaxis will be ordered: Yes
[2025-02-15 08:08] LABS: Appearance Urine Clear (Clear); Glucose Urine UA Negative (Negative)
[2025-02-15] MEDS ORDERED: NITROGLYCERIN SL 0.4 MG/TAB TAB SL PRN (08:19)
[2025-02-15] MEDS ORDERED: ONDANSETRON INJ 2 MG/ML 2 ML VIAL IV PRN (08:19)
[2025-02-15] MEDS ORDERED: ACETAMINOPHEN 325 MG TAB PO PRN (08:19)
[2025-02-15 08:28] LABS: Amphetamines+Metham, Urine Neg (Neg); MDMA (Ecstacy), Urine Neg (Neg); Marijuana, Urine Neg (Neg)
[2025-02-15] MEDS: SODIUM CHLORIDE 0.9% 1,000 ML IV SCH (08:32)
[2025-02-15] MEDS: ATORVASTATIN 20 MG TAB PO SCH (10:13)
[2025-02-15] MEDS: LEVOTHYROXINE SODIUM 125 MCG TABLET PO SCH (10:13)
--- NOTE | 2025-02-15 12:26 | Cardiology Consultation ---
<Statement entered by Cristine Laguna, DO - 02/15/25 13:41> I have reviewed the advanced practitioner's documentation and agree with the plan of care. I accept the responsibility for the associated risk. 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 On the way to the hospital or when he got to the hospital he vomited and there was a question of syncope vs near syncope -history somewhat limited i think pt has high vagal tone in addition to the underlying marked SB as he is still normalizing from myxedema coma I do not think a pacemaker is indicated at this juncture as I would like to see how he does with the thryoid being normalized and for now he not having any evidence of high degree AV block; i think a loop monitor might be beneficial prior to discharge will continue to follow with you I discussed the case and my recommendations with the hospitalist over the phone and he agreed with my plan Date of Consultation February 15, 2025 Assessment & Plan (1) Near syncope: (2) Weakness: (3) Bradycardia: Plan - Heart rate does trend on the lower side with rates primarily in the 50s - ECG consistent with sinus bradycardia and first-degree AV block - TSH levels have improved over the last 2 weeks but still remain elevated indicating thyroid levels have not yet stabilized - Echocardiogram completed 2 weeks ago indicated normal ejection fraction with no significant valvular disease - Events sound like they may be vasovagal in nature or possibly due to somewhat dehydration - Continue supportive therapy of correcting his underlying hypothyroidism with current dose of levothyroxine - If he continues to have recurrent events we could consider additional evaluation with Zio monitor vs LOOP monitor - continue to monitor on telemetry Case discussed with Dr. Laguna. Please see attestation for additional recommendations. DANA Melchor Department of Cardiology, [facility] This chart was completed in part utilizing Speech Voice Recognition Software. Grammatical errors, random word insertions, pronoun errors, and incomplete sentences are an occasional consequence of this system due to software l imitations, ambient noise, and hardware issues. Any formal questions or concerns about the content, text, or information contained within the body of this dictation should be directly addressed to the provider for clarification. History of Present Illness Reason for Consultation: Dizziness/Syncope Requesting Physician: Hospitalist Attending Physician: Dewayne García MD History of Present Illness 69-year-old male seen in consultation today in regard to dizziness and syncopal event. Presented the emergency room overnight after waking up with diaphoresis and dizziness in the setting of severe nausea. He woke up in the middle the night feeling very poorly with nausea, vomiting, sweating and dizziness. He initially got up and tried to use the restroom but only passed to a fair amount of gas when he stumbled out into his kitchen and tried to drink some water. Was not feeling any better so at that time he reached out to his daughter who initially did not answer the phone so he drove to her house and she brought him into the hospital. She reported on the way and he seemed to be having lethargy and passing out and when they arrived to the hospital he vomited. He had been brought into the ER by wheelchair was initially lethargic but after a short time he regained normal state of consciousness. He had a similar episode a few weeks ago after cataract surgery and incidentally had the second cataract procedure done 4 days ago. At the beginning of the month he had advised that he had been noncompliant with his medications for approximately 1 month prior to presentation and was noted to have very severe hypothyroidism due to noncompliance with levothyroxine. Also thinks he may have been somewhat dehydrated which may have contributed. Allergies Allergy/AdvReac Type Severity Reaction Status Date / Time No Known Allergies Allergy Verified 02/11/25 10:20 Home Medications Medication Instructions Recorded Confirmed Type atorvastatin 20 mg tablet 20 mg PO DAILY 02/02/25 02/15/25 History betamethasone dipropionate 0.05 % 1 applic topical BID PRN Leg Rash 02/02/25 02/15/25 History topical cream ibuprofen 800 mg tablet 800 mg PO Q8H PRN Pain 02/02/25 02/15/25 History mesalamine 1.2 gram tablet,delayed 1.2 g PO BID 02/02/25 02/15/25 History release valacyclovir 1 gram tablet 0 mg PO BID PRN Cold Sores 02/02/25 02/15/25 History levothyroxine 125 mcg tablet 125 mcg PO DAILYBB 30 days #30 tabs 07/08/25 07/20/25 Rx (Synthroid) Patient History Medical History Near syncope hx, recently admitted overnight to [facility] 02/02/25-02/03/25>brought to ER by EMS for weakness, diarrhea, abdominal cramping, and diaphoresis; "had not taken his medications for over a month" per records and pt. "feeling much better now and taking his medications as prescribed" History of COVID-19 2022, no residual symptoms Ulcerative colitis no meds Hypothyroidism per pt no longer taking medication History of subdural hematoma (08/2017) Temporomandibular joint disorder "only happens if yawning or eating a big sandwich"--no device Hearing deficit Hypomagnesemia Surgical History Hx of left cataract extraction History of craniotomy (08/2017) evacuation of subdural hematoma @ [facility] [place] History of arthroscopy of left knee meniscus repair History of colonoscopy History of tooth extraction Family History Other No family history of adverse response to anesthesia No pertinent family history in first degree relatives Social History Smoking Status: Never smoker Second Hand Exposure: No; Do You Dip or Chew Tobacco: No; Tobacco Cessation Education Requested by Patient: No Hx Alcohol Use: No Hx Substance Use: No Preferred Language: Swedish Communication Ability: Effective Core Assembly Supervisor Required: No Beliefs That Will Affect Care: None Current Living Situation: Alone Other Information That Helps Us Care for You: No Feels Safe at Home: Yes Safety Concerns: Feels Safe At This Time Assistive Devices: None Review of Systems Review of Systems: All systems reviewed & are unremarkable except as noted in Subjective Physical Exam Constitutional: WD/WN, vitals as above well developed and well nourished Eyes: PERRL, conjunctivae normal, anicteric sclerae Neck: trachea midline, no thyromegaly Respiratory: normal respiratory effort, lungs clear to auscultation Cardiovascular: RRR, no murmur, no edema Skin: no rashes, warm and dry Psychiatric: A+Ox3, euthymic affect Results & Data Vital Signs (Past 12 Hours) Vital Signs Temp Pulse Pulse Resp BP BP Pulse Ox 02/15/25 11:06 36.3 C L 54 L 19 118/72 95 02/15/25 08:20 36.4 C L 57 L 16 118/76 94 02/15/25 07:30 52 L 16 110/87 97 02/15/25 06:26 61 02/15/25 06:15 58 L 23 96 02/15/25 06:03 54 L 14 98 02/15/25 06:00 106/67 02/15/25 05:48 50 L 15 95 02/15/25 05:42 61 15 96 02/15/25 05:30 124/80 02/15/25 05:30 124/80 02/15/25 05:27 52 L 12 98 02/15/25 05:06 52 L 19 97 02/15/25 05:00 117/84 02/15/25 04:51 54 L 16 97 02/15/25 04:42 53 L 14 98 02/15/25 04:30 112/69 02/15/25 04:30 112/69 02/15/25 04:30 112/69 02/15/25 04:30 53 L 16 96 02/15/25 04:21 57 L 18 99 02/15/25 04:18 54 L 14 96 02/15/25 04:00 49 L 18 95 02/15/25 04:00 126/81 02/15/25 04:00 126/81 02/15/25 03:48 53 L 17 97 02/15/25 03:30 56 L 19 92 02/15/25 03:30 129/86 02/15/25 03:30 129/86 02/15/25 03:30 129/86 02/15/25 03:15 58 L 19 94 02/15/25 03:14 02/15/25 03:03 56 L 21 94 02/15/25 03:00 137/87 02/15/25 03:00 137/87 02/15/25 02:54 58 L 21 02/15/25 02:51 57 L 17 02/15/25 02:48 59 L 21 02/15/25 02:46 62 02/15/25 02:45 145/95 H 02/15/25 02:45 145/95 H 02/15/25 02:45 145/95 H 02/15/25 02:45 145/95 H 02/15/25 02:39 36.9 C 64 19 139/73 96 O2 Del Method 02/15/25 11:06 Room Air 02/15/25 08:20 Room Air 02/15/25 07:30 Room Air 02/15/25 06:26 02/15/25 06:15 02/15/25 06:03 02/15/25 06:00 02/15/25 05:48 02/15/25 05:42 02/15/25 05:30 02/15/25 05:30 02/15/25 05:27 02/15/25 05:06 02/15/25 05:00 02/15/25 04:51 02/15/25 04:42 02/15/25 04:30 02/15/25 04:30 02/15/25 04:30 02/15/25 04:30 02/15/25 04:21 02/15/25 04:18 02/15/25 04:00 02/15/25 04:00 02/15/25 04:00 02/15/25 03:48 02/15/25 03:30 02/15/25 03:30 02/15/25 03:30 02/15/25 03:30 02/15/25 03:15 02/15/25 03:14 Room Air 02/15/25 03:03 02/15/25 03:00 02/15/25 03:00 02/15/25 02:54 02/15/25 02:51 02/15/25 02:48 02/15/25 02:46 02/15/25 02:45 02/15/25 02:45 02/15/25 02:45 02/15/25 02:45 02/15/25 02:39 Room Air Laboratory Results Laboratory Results WBC 6.70 K/ul (4.8-10.8) 02/15/25 02:51 RBC 4.65 M/uL (4.70-6.10) L 02/15/25 02:51 Hgb 14.0 g/dl (14.0-18.0) 02/15/25 02:51 Hct 42.2 % (42.0-52.0) 02/15/25 02:51 MCV 90.8 fL (80.0-100.0) 02/15/25 02:51 MCH 30.1 pg (25.0-34.0) 02/15/25 02:51 MCHC 33.2 g/dL (32.0-36.0) 02/15/25 02:51 RDW Std Deviation 47.5 fL (36.4-46.3) H 02/15/25 02:51 RDW Coeff of [place] 14.2 % (11.5-14.5) 02/15/25 02:51 Plt Count 215 K/uL (130-400) 02/15/25 02:51 MPV 10.1 fL (9.4-12.4) 02/15/25 02:51 Immature Gran % (Auto) 0.3 % 02/15/25 02:51 Neut % (Auto) 60.2 % 02/15/25 02:51 Lymph % (Auto) 27.0 % 02/15/25 02:51 [place] % (Auto) 9.3 % 02/15/25 02:51 Eos % (Auto) 2.2 % 02/15/25 02:51 Baso % (Auto) 1.0 % 02/15/25 02:51 Neut # (Auto) 4.03 K/uL (1.40-6.50) 02/15/25 02:51 Lymph # (Auto) 1.81 K/uL (1.20-3.40) 02/15/25 02:51 [place] # (Auto) 0.62 K/uL (0.11-0.59) H 02/15/25 02:51 Eos # (Auto) 0.15 K/uL (0.00-0.50) 02/15/25 02:51 Baso # (Auto) 0.07 K/uL (0.00-0.20) 02/15/25 02:51 Immature Gran # (Auto) 0.02 K/uL (0.01-0.20) 02/15/25 02:51 Sodium 137 mmol/L (136-145) 02/15/25 02:51 Potassium 3.5 mmol/L (3.5-5.1) 02/15/25 02:51 Chloride 103 mmol/L (98-107) 02/15/25 02:51 Carbon Dioxide 26 mmol/L (21-32) 02/15/25 02:51 Anion Gap 8 (3-11) 02/15/25 02:51 BUN 17 mg/dl (6-23) 02/15/25 02:51 Creatinine 1.18 mg/dl (0.6-1.4) 02/15/25 02:51 Est Cr Clr Drug Dosing Not Reportable 02/15/25 02:51 eGFR 67.21 02/15/25 02:51 BUN/Creatinine Ratio 14.4 (10-20) 02/15/25 02:51 Glucose 183 mg/dl (70-99(Fasting)) H 02/15/25 02:51 Calcium 9.3 mg/dl (8.6-10.3) 02/15/25 02:51 Magnesium 2.0 mg/dl (1.7-2.4) 02/15/25 02:51 Total Bilirubin 0.5 mg/dl (0.2-1.0) 02/15/25 02:51 AST 19 U/L (13-39) 02/15/25 02:51 ALT 15 U/L (7-52) 02/15/25 02:51 Alkaline Phosphatase 94 U/L (34-104) 02/15/25 02:51 Troponin I High Sens 3.0 pg/ml (0-20) 02/15/25 07:08 Total Protein 7.6 gm/dl (6.0-8.3) 02/15/25 02:51 Albumin 4.0 gm/dl (3.4-5.0) 02/15/25 02:51 Globulin 3.6 gm/dl (2.5-4.0) 02/15/25 02:51 Albumin/Globulin Ratio 1.1 (0.9-2) 02/15/25 02:51 Lipase 26 U/L (11-82) 02/15/25 02:51 TSH 16.925 uIu/ml (0.300-4.500) H 02/15/25 02:51 Free T4 0.87 ng/dl (0.61-1.60) 02/15/25 02:51 Urine Color Yellow 02/15/25 07:50 Urine Appearance Clear (Clear) 02/15/25 07:50 Urine pH 6.5 (4.5-7.5) 02/15/25 07:50 Ur Specific [place] 1.018 (1.000-1.030) 02/15/25 07:50 Urine Protein Negative (Negative) 02/15/25 07:50 Urine Glucose (UA) Negative (Negative) 02/15/25 07:50 Urine Ketones Trace (Negative) H 02/15/25 07:50 Urine Blood Negative (Negative) 02/15/25 07:50 Urine Nitrite Negative (Negative) 02/15/25 07:50 Urine Bilirubin Negative (Negative) 02/15/25 07:50 Urine Urobilinogen Negative (Negative) 02/15/25 07:50 Ur Leukocyte Esterase Negative (Negative) 02/15/25 07:50 Urine Comment 02/15/25 07:50 Urine Opiates Screen Neg (Neg) 02/15/25 07:50 Ur Methadone, Qual Neg (Neg) 02/15/25 07:50 Urine Fentanyl Screen Neg (Neg) 02/15/25 07:50 Urine Barbiturates Neg (Neg) 02/15/25 07:50 Ur Phencyclidine (PCP) Neg (Neg) 02/15/25 07:50 U Amphetamin/Meth Scrn Neg (Neg) 02/15/25 07:50 MDMA (Ecstasy) Screen Neg (Neg) 02/15/25 07:50 U Benzodiazepines Scrn Neg (Neg) 02/15/25 07:50 Ur Cocaine Metabolite Neg (Neg) 02/15/25 07:50 U Marijuana (THC) Screen Neg (Neg) 02/15/25 07:50 Lyme Disease Screen Negative (Negative) 02/15/25 02:51 Impressions Chest X-Ray 02/15/25 03:14 EXAM: XR chest 1V portable CLINICAL HISTORY: weakness. TECHNIQUE: An X-ray image of the chest is obtained in AP projection. COMPARISON: 02/02/2025 FINDINGS: Pulmonary Parenchyma: Lungs are clear bilaterally. No evidence of consolidation, collapse, or focal opacities. No pulmonary nodules are identified. Blunted bilateral CP angles are projectional. However possibility of pleural thickening/minimal pleural effusion cannot be ruled out. Changes of COPD. Heart and Mediastinum: Heart size and shape are normal. No mediastinal widening or masses. No hilar or mediastinal lymphadenopathy. Bony Thorax: Bony thorax appears intact without fractures or deformities. Soft Tissues: Soft tissues overlying the chest wall are unremarkable. IMPRESSION: 1. No acute cardiopulmonary abnormalities are identified. 2. Interval development of blunted bilateral costophrenic angles that could be projectional due to rotation in the current study, however possibility of minimal pleural effusion/pleural thickening cannot be ruled out. Electronically signed by Geoff Dennison 02-15-2025 04:02 AM Diagnostic Findings Cardiac Enzymes 02/15/25 02/15/25 Range/Units 02:51 07:08 AST 19 (13-39) U/L Troponin I High Sens 3.8 3.0 (0-20) pg/ml CBC 02/15/25 Range/Units 02:51 WBC 6.70 (4.8-10.8) K/ul RBC 4.65 L (4.70-6.10) M/uL Hgb 14.0 (14.0-18.0) g/dl Hct 42.2 (42.0-52.0) % Plt Count 215 (130-400) K/uL Neut # (Auto) 4.03 (1.40-6.50) K/uL Lymph # (Auto) 1.81 (1.20-3.40) K/uL [place] # (Auto) 0.62 H (0.11-0.59) K/uL Eos # (Auto) 0.15 (0.00-0.50) K/uL Baso # (Auto) 0.07 (0.00-0.20) K/uL Comprehensive Metabolic Panel 02/15/25 Range/Units 02:51 Sodium 137 (136-145) mmol/L Potassium 3.5 (3.5-5.1) mmol/L Chloride 103 (98-107) mmol/L Carbon Dioxide 26 (21-32) mmol/L BUN 17 (6-23) mg/dl Creatinine 1.18 (0.6-1.4) mg/dl Glucose 183 H (70-99(Fasting)) mg/dl Calcium 9.3 (8.6-10.3) mg/dl AST 19 (13-39) U/L ALT 15 (7-52) U/L Alkaline Phosphatase 94 (34-104) U/L Total Protein 7.6 (6.0-8.3) gm/dl Albumin 4.0 (3.4-5.0) gm/dl Intake and Output 02/14/25 02/15/25 02/15/25 22:59 06:59 14:59 Output Total 300 / 300 Balance -300 / -300 Output: Urine 300 / 300 Other: Weight 79.7 kg Weight Measurement Method Standing Scale Patient Weight 02/16/25 06:59 Weight 79.7 kg PG Care Time/CCT Total # of Minutes Spent Total Time Spent with Patient: Total time spent is greater than 50% in coordination of care (as documented) at patient's floor/unit and/or counseling patient: Coding Level of Care Code 12680 INT INP/OBS CARE 3/75MIN Medical Decision Making High Complexity Diagnoses Near syncope R55 Weakness R53.1 Bradycardia R00.1
--- NOTE | 2025-02-15 14:41 | Communication Note ---
Patient well known to this provider. Presents for similar symptoms as last admission. Patient states he is feeling well overall, but had nausea/vomiting/lightheadedness last night similar to prior. Suspect patient has high vagal tone, bradycardia with mild 1st degree AV block, and body still recovering from myxedema coma a week ago. Cardiology consulted, appreciate recs. Can consider midodrine before discharge, will discuss with cardiology further. Date of Service: February 15, 2025
--- NOTE | 2025-02-15 16:58 | Electrocardiogram Report ---
Test Reason : Blood Pressure : */* mmHG Vent. Rate : 59 BPM Atrial Rate : 59 BPM P-R Int : 240 ms QRS Dur : 94 ms QT Int : 430 ms P-R-T Axes : -11 -11 -10 degrees QTcB Int : 425 ms Sinus bradycardia with 1st degree A-V block Inferior infarct , age undetermined Abnormal ECG When compared with ECG of 03-Feb-2025 05:23, Inferior infarct is now Present Nonspecific T wave abnormality now evident in Inferior leads Confirmed by Alfonzo Lyon ([id number]) on 02/15/2025 4:58:17 PM Referred By: REFERRED SELF Confirmed By: Alfonzo Lyon
--- NOTE | 2025-02-15 17:17 | Electrocardiogram Report ---
Test Reason : Blood Pressure : */* mmHG Vent. Rate : 56 BPM Atrial Rate : 56 BPM P-R Int : 228 ms QRS Dur : 86 ms QT Int : 414 ms P-R-T Axes : 38 20 59 degrees QTcB Int : 399 ms Sinus bradycardia with 1st degree A-V block Otherwise normal ECG When compared with ECG of 15-Feb-2025 02:47, (unconfirmed) Criteria for Inferior infarct are no longer Present Nonspecific T wave abnormality no longer evident in Inferior leads Confirmed by Alfonzo Lyon ([id number]) on 02/15/2025 5:16:56 PM Referred By: REFERRED SELF Confirmed By: Alfonzo Lyon
[2025-02-15] MEDS: MESALAMINE 1.2 GM TABDR PO SCH (20:24)
[2025-02-15] MEDS: NON-FORMULARY PATIENT'S OWN MED OPR SCH (20:25)
[2025-02-15] MEDS ORDERED: MESALAMINE 400 MG CAPDR PO SCH (21:00)
[2025-02-16 07:07] LABS: Hematocrit (blood only) 41.6 % (42.0-52.0); Hemoglobin 13.6 g/dl (14.0-18.0); Immature Granulocytes # (auto) 0.02 K/uL (0.01-0.20); Immature Granulocytes % (auto) 0.3 %; Mean Corpuscular Hemoglobin 30.0 pg (25.0-34.0); Mean Corpuscular Volume 91.8 fL (80.0-100.0); Platelet Count 190 K/uL (130-400); RDW Standard Deviation 48.3 fL (36.4-46.3); Red Blood Count 4.53 M/uL (4.70-6.10); White Blood Count 6.55 K/ul (4.8-10.8)
[2025-02-16 07:24] LABS: Anion Gap 5.0 (3-11); Blood Urea Nitrogen 17.0 mg/dl (6-23); Calcium 9.2 mg/dl (8.6-10.3); Carbon Dioxide 30.0 mmol/L (21-32); Chloride 103.0 mmol/L (98-107); Creatinine Clr Calc Pharmacy 68.9 ml/min; Glucose 95.0 mg/dl (70-99(Fasting)); Magnesium 1.9 mg/dl (1.7-2.4); Potassium 4.2 mmol/L (3.5-5.1); Sodium 138.0 mmol/L (136-145)
[2025-02-16] MEDS: NON-FORMULARY PATIENT'S OWN MED OPL SCH (09:46)
--- NOTE | 2025-02-16 10:51 | Cardiology Progress Note ---
Date of Service February 16, 2025 Assessment & Plan (1) Bradycardia: (2) Vasovagal episode: (3) Near syncope: (4) Hypothyroidism: Plan 69 year old male admitted on 02/15 after awaking with severe nausea, diaphoresis, dizziness, experiencing near syncope/syncope prior to arrival. Recent hospitalization with myxedema coma from noncompliance with levothyroxine noted. Vasovagal event and dehydration suspected. Heart rates remain mildly bradycardic though without severe bradycardia, pauses, or significant tachyarrhythmias on telemetry. High-sensitivity troponin negative. Recent (02/02/2025) resting echocardiogram with preserved LV systolic function without regional wall motion abnormality. Right ventricle mildly dilated, with normal RV function. No significant valvular issues observed. Recommendations: * Continue telemetry while hospitalized. * Maintain proper hydration. * Increase activity as tolerated. * No overt indication for permanent pacemaker implantation * Avoid midodrine which may exacerbate bradycardia * Outpatient 14-day Zio monitor * Outpatient stress echocardiography to evaluate for chronotropic incompetence. * Outpatient evaluation for sleep apnea Admission and Anticipated Discharge Date Admission Date: February 15, 2025 Supervising Physician Co-Signing Physician Notes Patient was seen and personally examined. 69-year-old male with myxedema recently due to noncompliance with levothyroxine. Admitted with bradycardia as part of complaints. Bradycardia slowly improving with heart rates in the 50s and 60s predominantly with no problem bradycardia arrhythmias. Thyroid function slowly recovering. Plan as outlined above No indications for pacemaker Ambulate Subjective Patient seen and examined. Chart, medications, telemetry reviewed. Feeling OK. No dizziness or near syncope. Sedentary overall. Biggest activity is mowing grass on a mower. Can ambulate two flights of stairs without chest pain or shortness of breath. No tachypalpitations. No orthopnea or PND. No fevers or chills. No rash or tick bites. Review of Systems Review of Systems: Complete Review of Systems is as stated above, negative, or noncontributory. Physical Exam Physical Exam: General: A&Ox3. NAD. HENT: Normocephalic. Atraumatic. Eyes: PER. Conjunctiva pink, sclera clear. Neck: No carotid bruits. No JVD. Heart: RRR, 54 bpm. No murmur. Lungs: Clear to auscultation. Abdomen: +BS. Soft. Nontender. No masses or organomegaly. Extremities: No clubbing, cyanosis, or edema. Limited neurological examination is without focal deficits. Pulses: Posterior tibial=2/4. Results & Data Vital Signs (Past 12 Hours) Vital Signs Temp Pulse Pulse Resp BP BP Pulse Ox 02/16/25 08:23 36.7 C 53 L 18 114/74 96 02/16/25 07:50 59 L 02/16/25 04:00 36.6 C 56 L 18 116/71 95 02/16/25 00:00 36.7 C 56 L 18 114/72 94 O2 Del Method 02/16/25 08:23 Room Air 02/16/25 07:50 02/16/25 04:00 Room Air 02/16/25 00:00 Room Air Laboratory Results CBC 02/16/25 Range/Units 05:32 WBC 6.55 (4.8-10.8) K/ul RBC 4.53 L (4.70-6.10) M/uL Hgb 13.6 L (14.0-18.0) g/dl Hct 41.6 L (42.0-52.0) % Plt Count 190 (130-400) K/uL Neut # (Auto) 4.56 (1.40-6.50) K/uL Lymph # (Auto) 1.23 (1.20-3.40) K/uL [place] # (Auto) 0.57 (0.11-0.59) K/uL Eos # (Auto) 0.12 (0.00-0.50) K/uL Baso # (Auto) 0.05 (0.00-0.20) K/uL Comprehensive Metabolic Panel 02/16/25 Range/Units 05:32 Sodium 138 (136-145) mmol/L Potassium 4.2 (3.5-5.1) mmol/L Chloride 103 (98-107) mmol/L Carbon Dioxide 30 (21-32) mmol/L BUN 17 (6-23) mg/dl Creatinine 1.04 (0.6-1.4) mg/dl Glucose 95 (70-99(Fasting)) mg/dl Calcium 9.2 (8.6-10.3) mg/dl Intake and Output 02/15/25 02/16/25 02/16/25 22:59 06:59 14:59 Intake Total 986.667 / 1346.667 Output Total 400 / 700 Balance 586.667 / 646.667 Intake: IV 986.667 / 986.667 Sodium Chloride 0.9% 1,000 ml @ 986.667 / 986.667 100 mls/hr IV .Q10H ARLTE Rx#: [id number] Output: Urine 400 / 700 Other: Weight 80.1 kg Weight Measurement Method Built in [facility] Diagnostic Findings TSH: 78.165 on February 02, 2025, 24.416 on February 03, 2025, and 16.925 on February 15, 2025 Lyme screen negative this admission EKG this morning revealed sinus bradycardia 55 bpm with a first-degree AV block, unchanged compared to prior EKGs. Telemetry: Sinus bradycardia with first-degree heart block, heart rates predominantly in the 50s. 1 short run of PAT at 21:46, asymptomatic PG Care Time/CCT Total # of Minutes Spent Total Time Spent with Patient: Total time spent is greater than 50% in coordination of care (as documented) at patient's floor/unit and/or counseling patient: Coding Level of Care Code 12428 SUB INP/OBS CARE 3/50MIN Diagnoses Bradycardia R00.1 Vasovagal episode R55 Near syncope R55 Hypothyroidism E03.9
[2025-02-16 11:28] VITALS: RESP 16; TEMP 97.9; O2SAT 95
[2025-02-16 11:36] VITALS: BP 114/74; PULSE 56
--- NOTE | 2025-02-16 12:47 | Discharge Summary ---
Discharge Summary Date of Service February 16, 2025 Principal Dx & Hospital Course #1 = Principal Diagnosis (1) Syncope: 69-year-old male with past med history significant for hypothyroidism, hyperlipidemia, pulmonary granuloma, incidental lung nodule, history of acute respiratory failure unspecified hypoxia or hypercapnia, atherosclerosis of aorta, CAD, rectosigmoid ulcerative colitis, hepatic steatosis, calculus of gallbladder without cholecystitis, degenerative disc disease, history of subdural hematoma presents with nausea, vomiting, sweating and seems had syncope. Daughter is in the room. This is second episode. Patient was in the hospital on 02/02/2025 with similar episode after cataract surgery and during that admission was found to be noncompliant with thyroid medication and TSH was in 70s, received IV Synthyroid and did okay and was discharged the next day. Incidentally this episode again happened after second cataract surgery on 02/11/2025. As per daughter after surgery patient was doing okay. He even went to daughter's son's graduation alliance party yesterday and was doing okay. After going home and sleeping he woke up in the middle of the night with nausea, vomiting, sweating, dizziness not feeling well. He called his daughter but not able to reach her. So he drove himself to his daughter's place which was not very far away. Daughter brought him to the hospital. Daughter says on the way he seems to be passing out. In the hospital parking lot he vomited a lot and seemed he passed out. Patient was brought in wheelchair to the ER. As per ER physician patient was lethargic. Lyme screen was negative. But later patient again came back to his usual self. Currently patient is alert and oriented x 3. Able to give history. Currently denies any headache. Vision is somewhat blurry from surgery. No runny nose or sore throat. No cough. Afebrile. Denies any chest pain or shortness of breath. Appetite is okay. No nausea or vomiting. No abdominal pain. Normal bowel and bladder movements. Currently hemodynamics are okay. Heart rates are in 50s. TSH is 16 today. When asked he says he is taking all his medications. Denies any alcohol use. Meclizine was given in the ER. Syncope Patient woke up with nausea, vomiting, sweating and dizziness As per daughter patient was passing out while she was driving him to the hospital Initially was lethargic in the ER Currently alert and oriented Similar presentation recently Incidentally both times after cataract surgery Last admission tsh was 70 and was noncompliant with thyroid medication TSH is improved to 16 Will monitor on telemetry IV fluids Consult cardiology in a.m. for further recommendations Nausea and vomiting Currently seems to be improved Hypothyroidism Continue Synthyroid Follow-up with PCP History of ulcerative colitis On mesalamine Hyperlipidemia On statin DVT prophylaxis SCDs Disposition Observation telemetry Full code Notes For Next Care Provider 69-year-old male with past med history significant for hypothyroidism, hyperlipidemia, pulmonary granuloma, incidental lung nodule, history of acute respiratory failure unspecified hypoxia or hypercapnia, atherosclerosis of aorta, CAD, rectosigmoid ulcerative colitis, hepatic steatosis, calculus of gallbladder without cholecystitis, degenerative disc disease, history of subdural hematoma presents with nausea, vomiting, sweating and seems had syncope. Admitted to medicine for further workup. On medicine, cardiology consulted, recommended outpatient f/u after regularization of myxedema coma in a few weeks. Patient asymtpomatic throughout admission. Patient not drinking enough water at home per patient. On 02/16/2025 patient medically stable for discharge home. To do: [ ] f/u with cardiology, endocrinology [ ] encourage hydration Medication Changes From Visit -see below Admission HPI Per Admitting Provider 69-year-old male with past med history significant for hypothyroidism, hyperlipidemia, pulmonary granuloma, incidental lung nodule, history of acute respiratory failure unspecified hypoxia or hypercapnia, atherosclerosis of aorta, CAD, rectosigmoid ulcerative colitis, hepatic steatosis, calculus of gallbladder without cholecystitis, degenerative disc disease, history of subdural hematoma presents with nausea, vomiting, sweating and seems had syncope. Daughter is in the room. This is second episode. Patient was in the hospital on 02/02/2025 with similar episode after cataract surgery and during that admission was found to be noncompliant with thyroid medication and TSH was in 70s, received IV Synthyroid and did okay and was discharged the next day. Incidentally this episode again happened after second cataract surgery on 02/11/2025. As per daughter after surgery patient was doing okay. He even went to daughter's son's graduation alliance party yesterday and was doing okay. After going home and sleeping he woke up in the middle of the night with nausea, vomiting, sweating, dizziness not feeling well. He called his daughter but not able to reach her. So he drove himself to his daughter's place which was not very far away. Daughter brought him to the hospital. Daughter says on the way he seems to be passing out. In the hospital parking lot he vomited a lot and seemed he passed out. Patient was brought in wheelchair to the ER. As per ER physician patient was lethargic. Lyme screen was negative. But later patient again came back to his usual self. Currently patient is alert and oriented x 3. Able to give history. Currently denies any headache. Vision is somewhat blurry from surgery. No runny nose or sore throat. No cough. Afebrile. Denies any chest pain or shortness of breath. Appetite is okay. No nausea or vomiting. No abdominal pain. Normal bowel and bladder movements. Currently hemodynamics are okay. Heart rates are in 50s. TSH is 16 today. When asked he says he is taking all his medications. Denies any alcohol use. Meclizine was given in the ER. Past medical history. As mentioned above. Past surgical history. Colonoscopy. Colonoscopy with biopsy. Left knee arthroscopy. Left craniotomy for removal of hematoma. Bur hole drainage of subdural hematoma. Vasectomy Social history. No smoking. No alcohol use. No drug use. Family history. Father had pancreatic cancer. Father alcoholism. Mother had leukemia. Half brother had diabetes. Paternal grandmother alcoholic. Discharge Exam Gen: A&O 3 NAD HEENT: NCAT, EOMI, not icteric. External ears normal. No rhinorrhea. Moist mucous membranes. Neck: Supple, full range of motion, no observable masses, No meningeal sign. Lungs: No Respiratory distress. CV: RRR, no edema. Abdomen: Soft, nondistended, No rebound tenderness. MSK: No joint swelling, no redness. Skin: No rashes, petechiae, lesions. Normal color per patient. Neuro: Normal Gait, Grossly intact. Psych: Appropriate for situation. Updated Medication List Medication Instructions Recorded Confirmed Type atorvastatin 20 mg tablet 20 mg PO DAILY 02/02/25 02/15/25 History betamethasone dipropionate 0.05 % 1 applic topical BID PRN Leg Rash 02/02/25 02/15/25 History topical cream ibuprofen 800 mg tablet 800 mg PO Q8H PRN Pain 02/02/25 02/15/25 History mesalamine 1.2 gram tablet,delayed 1.2 g PO BID 02/02/25 02/15/25 History release valacyclovir 1 gram tablet 0 mg PO BID PRN Cold Sores 02/02/25 02/15/25 History levothyroxine 125 mcg tablet 125 mcg PO DAILYBB 30 days #30 tabs 02/03/25 02/15/25 Rx (Synthroid) ondansetron 4 mg disintegrating 4 mg PO Q8H PRN nausea and 02/16/25 Rx tablet vomiting 4 days #14 tabs Hospital Stay Data Consultations 02/15/25 04:51 ED Decision to Admit Stat 02/15/25 08:19 Consult Cardiology Routine Pending Results Patient Have Any Pending Studies at Discharge: No Discharge Instructions Given to Patient (Per Discharging Provider) 1. Please follow up with PCP, get referral to endocrinology, and follow up with cardiology. 2. Please do not miss any medications! 3. Stay hydrated, it is a priority! 4. Please take time going from sitting to standing, let your body recover. 5. Please take it easy with working outside. Total Time Total Time Spent Total Time Spent (In Minutes): I spent a total of 35 minutes in direct patient care, including [id number] time with the patient and/or family, reviewing medical records, ordering and reviewing diagnostic tests, and coordinating care with other healthcare providers. This time includes: history taking, physical examination, medical decision making, counseling, ECG interpretation, imaging interpretation, lab interpretation, orders, and education, excluding time spent in the performance of separately billed services.
--- NOTE | 2025-02-16 15:34 | Electrocardiogram Report ---
Test Reason : Blood Pressure : */* mmHG Vent. Rate : 55 BPM Atrial Rate : 55 BPM P-R Int : 206 ms QRS Dur : 84 ms QT Int : 416 ms P-R-T Axes : 27 17 45 degrees QTcB Int : 397 ms Sinus bradycardia Otherwise normal ECG When compared with ECG of 15-Feb-2025 08:38, No significant change was found Confirmed by Alfonzo Lyon ([id number]) on 02/16/2025 3:34:40 PM Referred By: REFERRED SELF Confirmed By: Alfonzo Lyon
[2025-02-19] MEDS ORDERED: NON-FORMULARY PATIENT'S OWN MED OPR SCH (09:00)
== END 2025-02-16 13:30 | disposition home or self-care (01) ==
LOC: 4W 02:35 → ED 02:35 → 4W 07:45 → 2N 17:37